=== PATIENT | female | born 1975 | race Caucasian/White ===

== ENCOUNTER 2017-06-24 19:18 | Emergency (ER) | payer BC ==
[~2017-06-24] VITALS: Ht 162.6 cm; Wt 196.3 kg
[2017-06-24] MEDS ORDERED: MoRPHine SULFATE 10 MG/ML CARP/VIAL ONE (19:22)
[2017-06-24 19:23] VITALS: TEMP 36.7; Ht 162.6 cm; Wt 196.3 kg
[2017-06-24] MEDS ORDERED: KETOROLAC TROMETHAMINE 30 MG/ML VIAL IV STA (20:18)
[2017-06-24] MEDS ORDERED: MoRPHine SULFATE 4 MG/ML 1 ML CARP\\VIAL IV STA (20:18)
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
[2017-06-24] MEDS ORDERED: MULT-513 PO (20:29)
[2017-06-24] MEDS ORDERED: DOCU100C31 PO (20:30)
--- NOTE | 2017-06-24 20:48 | DIAGNOSTIC IMAGING REPORT ---
LUMBAR SPINE CT CT DOSE: 2247.98 mGy.cm HISTORY: low back pain TECHNIQUE: Multiaxial CT images of the lumbar spine were performed and reformatted in the sagittal and coronal plane without the use of contrast. A dose lowering technique was utilized adhering to the principles of ALARA. COMPARISON: Abdomen and pelvis CT 08/31/2015. FINDINGS: There is a punctate stone within the left kidney. No hydronephrosis. Paraspinal soft tissues are within normal limits. Mild dextroscoliosis of the lumbar spine. No fractures within the lumbar spine. There is 3 mm of anterolisthesis of L4 and L5. Severe facet osteoarthritis at L4-L5. Mild facet osteoarthritis throughout the remaining lumbar spine. Moderate to space narrowing at T12-L1. Moderate to severe disc space narrowing at L1-L2 with endplate sclerosis and osteophytes consistent with degenerative change. Mild disc space narrowing at L5-S1. Mild central canal narrowing at L1-L2 and L4-L5. IMPRESSION: 1. No fractures within the lumbar spine. 2. Degenerative changes as described above. 3. Left-sided nephrolithiasis. No hydronephrosis. Electronically signed by: Rey Esqueda M.D. 06/24/2017 8:47 PM Dictated Date/Time: 06/24/2017 8:42 PM
[2017-06-24 21:08] VITALS: BP 159/101; PULSE 89; O2SAT 95
== END 2017-06-24 21:09 | disposition home or self-care (01) ==
LOC: EDBD 19:18 → C.EDB 19:19
DX: M54.5 Low back pain (principal); K56.609 Unspecified intestinal obstruction, unspecified as to partial versus complete obstruction; Z90.49 Acquired absence of other specified parts of digestive tract

== ENCOUNTER 2017-09-05 11:03 | Emergency (ER) | payer BC ==
[~2017-09-05] VITALS: Ht 165.1 cm; Wt 173.4 kg
[~2017-09-05 11:03] MED LIST: DOCU100C31 PO; MULT-513 PO
[2017-09-05 11:07] VITALS: TEMP 36.4; Ht 165.1 cm; Wt 173.4 kg
[2017-09-05] MEDS ORDERED: SODIUM CHLORIDE 0.9% 1000ML 1,000 ML IV ONE (12:00)
[2017-09-05 12:05] LABS: BASO % 0.4 %; BASO ABS # 0.04 K/uL (0-0.2); EOS % 1.7 %; EOS ABS # 0.16 K/uL (0-0.5); HEMATOCRIT 37.7 % (37-47); HEMOGLOBIN 11.5 g/dL (12.0-16.0); IG# 0.04 K/uL (0.00-0.02); LYMPH % 13.8 %; MEAN CELL VOLUME 81.1 fL (80-100); MEAN CORPUSCULAR HEMOGLOBIN 24.7 pg (25-34); MEAN CORPUSCULAR HGB CONC 30.5 g/dl (32-36); MEAN PLATELET VOLUME 10.2 fL (7.4-10.4); MONO % 3.8 %; MONO ABS # 0.36 K/uL (0.11-0.59); NEUT % 79.9 %; NEUT ABS # 7.49 K/uL (1.4-6.5); PLATELET COUNT 384 K/uL (130-400); RED CELL DISTRIBUTION WIDTH SD 50.7 fL (36.4-46.3); WHITE BLOOD COUNT 9.39 K/uL (4.8-10.8)
[2017-09-05 12:12] LABS: ALBUMIN 3.5 gm/dl (3.4-5.0); ALT/SGPT 32 U/L (12-78); BLOOD UREA NITROGEN 18 mg/dl (7-18); CALCIUM 8.4 mg/dl (8.5-10.1); CARBON DIOXIDE 26 mmol/L (21-32); CREATININE 0.92 mg/dl (0.60-1.20); GLUCOSE 148 mg/dl (70-99); POTASSIUM 4.3 mmol/L (3.5-5.1); SODIUM 138 mmol/L (136-145)
[2017-09-05 12:17] LABS: ALKALINE PHOSPHATASE 81 U/L (45-117); AST/SGOT 20 U/L (15-37)
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
[2017-09-05 14:58] VITALS: BP 123/77; PULSE 120; O2SAT 93
--- NOTE | 2017-09-05 21:06 | EMERGENCY ROOM VISIT NOTE ---
ED Visit Note First contact with patient: 11:37 Chief Complaint: I felt like I was going to pass out and I started having shortness of breath. History of Present Illness: Ms. Álvarez is a 42-year-old white female who ambulates into the ED accompanied by her . Historically patient reports she has multiple gastrointestinal surgery but no other significant past medical history. Patient reports approximately 1 hour before she arrived in the emergency department she was at work and started feeling lightheaded and dizzy. She then reported that she felt like her heart was racing and became short of breath. She has never experienced these symptoms before. She reports since being in the hospital and lying on the hospital bed all the symptoms have resolved. She does report for the last couple weeks she has been having a mild nonproductive cough that she relates to her previous upper respiratory tract infection. She has not identified any aggravating or alleviating factors related to the symptoms. She has not taken any medications for these symptoms prior to arrival at the hospital. She denies fevers, chills, sweats, skin eruptions, skin color changes, headaches , head trauma, visual changes, hearing changes, difficulty speaking, difficulty swallowing, difficulty ambulating/coordinating body movements, chest pain/ discomfort, recent surgery/inactivity/extended travel, previous clots, claudication, cramping, abdominal pain, nausea/vomiting, back/flank pain, urinary symptoms, hematuria, rectal bleeding, black/tarry stools, vaginal bleeding, vaginal discharge, extremity weakness/numbness/tingling peer Review of Systems: As noted above in history of present illness. All body systems were reviewed and found to be negative as noted above. Past Medical History: Status post cholecystectomy, bowel resection for ischemic bowel, appendectomy. Current Medications: Dulcolax, multivitamins. Allergies to Medications: Patient denies. Social History: Patient is currently employed; she feels safe in her home environment; she denies tobacco and alcohol use. Physical Examination: Vital Signs: Date Time Temp Pulse Resp B/P (MAP) Pulse Ox O2 Delivery O2 Flow Rate FiO2 09/05/17 14:58 120 18 123/77 93 09/05/17 14:53 120 93 Room Air 09/05/17 14:36 75 18 123/77 99 Room Air 09/05/17 12:50 82 20 137/80 100 Room Air 3/26/18 12:48 100 Room Air 09/05/17 12:35 82 20 137/80 100 97 145/94 84 167/99 09/05/17 11:07 36.4 98 20 182/97 94 Room Air GENERAL: 42-year-old female in no acute distress, nontoxic-appearing, afebrile and hemodynamically stable. NEUROLOGICAL: Awake, alert and oriented to person, place and time. Answering questions appropriately and following commands. Normal gait. Good hand eye coordination. No focal motor or sensory deficits. Good short-term and long- term recall. Cranial nerves II through XII grossly intact. SKIN: Warm, dry and pink. No soft tissue eruptions or trauma noted. HEENT: Atraumatic and normocephalic. PERRLA. Sclera white and conjunctiva pink. No drainage from naris. Oral cavity moist and pink. Pharynx is nonerythematous or edematous. Speech normal. No carotid bruits. No lymphadenopathy. Trachea midline. No jugular venous distention. BACK: No tenderness over the bony spine. No CVA tenderness. THORAX: Lungs sounds are clear to auscultation and equal bilaterally with symmetrical chest wall. No wheezing, rales or rhonchi. No crepitus, tenderness , subcutaneous air or deformities noted. HEART: Regular rate and rhythm. No gallops, rubs or murmurs are appreciated. ABDOMEN: Morbidly obese, soft and nontender. Positive bowel sounds in all quadrants. No guarding, rigidity or organomegaly. EXTREMITIES: Moves all extremities well on command and with purpose. All distal neurovascular statuses are intact and equal bilaterally. No calf tenderness or cords. Bilateral dependent edema. ED Course: Patient is assessed as noted above. Patient's medication list was reviewed. Laboratory Testing: Test 09/05/17 11:20 09/05/17 12:28 Range/Units White Blood Count 9.39 4.8-10.8 K/uL Red Blood Count 4.65 4.2-5.4 M/uL Hemoglobin 11.5 12.0-16.0 g/dL Hematocrit 37.7 37-47 % Mean Corpuscular Volume 81.1 80-100 fL Mean Corpuscular Hemoglobin 24.7 25-34 pg Mean Corpuscular Hemoglobin Concent 30.5 32-36 g/dl Platelet Count 384 130-400 K/uL Mean Platelet Volume 10.2 7.4-10.4 fL Neutrophils (%) (Auto) 79.9 % Lymphocytes (%) (Auto) 13.8 % Monocytes (%) (Auto) 3.8 % Eosinophils (%) (Auto) 1.7 % Basophils (%) (Auto) 0.4 % Neutrophils # (Auto) 7.49 1.4-6.5 K/uL Lymphocytes # (Auto) 1.30 1.2-3.4 K/uL Monocytes # (Auto) 0.36 0.11-0.59 K/uL Eosinophils # (Auto) 0.16 0-0.5 K/uL Basophils # (Auto) 0.04 0-0.2 K/uL RDW Standard Deviation 50.7 36.4-46.3 fL RDW Coefficient of Variation 17.0 11.5-14.5 % Immature Granulocyte % (Auto) 0.4 % Immature Granulocyte # (Auto) 0.04 0.00-0.02 K/uL D-Dimer 470 0-500 ug/L FEU Sodium Level 138 136-145 mmol/L Potassium Level 4.3 3.5-5.1 mmol/L Chloride Level 105 98-107 mmol/L Carbon Dioxide Level 26 21-32 mmol/L Anion Gap 7.0 3-11 mmol/L Blood Urea Nitrogen 18 7-18 mg/dl Creatinine 0.92 0.60-1.20 mg/dl Est Creatinine Clear Calc Drug Dose 130.2 ml/min Estimated GFR () 89.0 Estimated GFR (Non- 76.8 BUN/Creatinine Ratio 19.7 10-20 Random Glucose 148 70-99 mg/dl Calcium Level 8.4 8.5-10.1 mg/dl Total Bilirubin 0.4 0.2-1 mg/dl Direct Bilirubin < 0.1 0-0.2 mg/dl Aspartate Amino Transf (AST/SGOT) 20 15-37 U/L Alanine Aminotransferase (ALT/SGPT) 32 12-78 U/L Alkaline Phosphatase 81 45-117 U/L Troponin I < 0.015 0-0.045 ng/ml Total Protein 7.0 6.4-8.2 gm/dl Albumin 3.5 3.4-5.0 gm/dl Urine Color YELLOW Urine Appearance CLEAR CLEAR Urine pH 7.0 4.5-7.5 Urine Specific [place] 1.015 1.000-1.030 Urine Protein NEG NEG Urine Glucose (UA) NEG NEG Urine Ketones NEG NEG Urine Occult Blood NEG NEG Urine Nitrite NEG NEG Urine Bilirubin NEG NEG Urine Urobilinogen NEG NEG Urine Leukocyte Esterase NEG NEG Urine Test NEG NEG EKG: Was read read by myself and shows normal sinus rhythm with a ventricular rate of 83 bpm. Possible left atrial enlargement. No changes indicating ischemia, injury or infarction. No previous to compare. Chest X-Rays: Was read by myself and the radiologist showing no acute infiltrates, effusions or pneumothorax. Normal heart silhouette and bony anatomy. Patient was hydrated with normal saline. An ambulatory saturation test was performed and was negative. Patient's case was reviewed with Dr. Schwartz; we agreed on diagnostic approach, treatment, disposition and plan. Patient was educated about today's findings and instructed on her treatment plan ; she verbalizes understanding and agreement with this plan. Clinical Impression: Dizziness. Decision-Making: Initially my differential diagnosis I considered vasovagal syncope, arrhythmia, electrolyte abnormality, metabolic dysfunction, acute coronary syndrome, pneumonia and other causes. Disposition: Patient discharged home in stable condition accompanied by her ; prior to departure she was reassessed and subjectively reported she was feeling better. Plan: Patient was encouraged to rest for the next 48 hours and stay well-hydrated. Patient was encouraged to contact her family physician for follow-up care and treatment in 2-3 days; I did encourage the patient to have her blood pressure rechecked since it was elevated in today's ED.. Patient was signed off of work for 2 days. Patient was encouraged to return the ED for worsening dizziness/lightheadedness , shortness of breath, fevers, syncope or any new/concerning symptoms.
== END 2017-09-05 15:00 | disposition home or self-care (01) ==
LOC: C.EDB 11:04 → C.EDC 15:00
DX: R42 Dizziness and giddiness (principal); Z90.49 Acquired absence of other specified parts of digestive tract

== ENCOUNTER 2017-10-14 12:21 | Emergency (ER) | payer BC ==
[~2017-10-14] VITALS: Ht 162.6 cm; Wt 197.2 kg
[~2017-10-14 12:21] MED LIST changes: -DOCU100C31 PO
[2017-10-14 12:23] VITALS: TEMP 36.7; Ht 162.6 cm; Wt 197.2 kg
[2017-10-14 13:02] LABS: BASO % 0.6 %; BASO ABS # 0.05 K/uL (0-0.2); EOS % 2.5 %; EOS ABS # 0.22 K/uL (0-0.5); HEMATOCRIT 33.1 % (37-47); HEMOGLOBIN 10.3 g/dL (12.0-16.0); IG# 0.03 K/uL (0.00-0.02); LYMPH % 17.1 %; LYMPH ABS # 1.51 K/uL (1.2-3.4); MEAN CORPUSCULAR HEMOGLOBIN 24.6 pg (25-34); MEAN CORPUSCULAR HGB CONC 31.1 g/dl (32-36); MEAN PLATELET VOLUME 9.2 fL (7.4-10.4); MONO ABS # 0.53 K/uL (0.11-0.59); NEUT % 73.5 %; NEUT ABS # 6.47 K/uL (1.4-6.5); PLATELET COUNT 478 K/uL (130-400); RED CELL DISTRIBUTION WIDTH CV 15.6 % (11.5-14.5); WHITE BLOOD COUNT 8.81 K/uL (4.8-10.8)
[2017-10-14 13:18] LABS: ALBUMIN 3.3 gm/dl (3.4-5.0); CALCIUM 8.7 mg/dl (8.5-10.1); CREATININE 0.83 mg/dl (0.60-1.20)
[2017-10-14 13:21] LABS: TOTAL PROTEIN 7.2 gm/dl (6.4-8.2)
--- NOTE | 2017-10-14 13:30 | DIAGNOSTIC IMAGING REPORT ---
TWO VIEW CHEST CLINICAL HISTORY: Cough. FINDINGS: PA and lateral chest radiographs are compared to study dated 09/05/2017. The PA view is degraded by patient rotation. The examination is also degraded by large body habitus. The cardiomediastinal silhouette is unremarkable. There is chronic elevation of the right hemidiaphragm. The lungs and pleural spaces are clear. There is no pneumothorax. The bony thorax appears intact. IMPRESSION: No active disease in the chest. Electronically signed by: Angelito Flores M.D. 10/14/2017 1:29 PM Dictated Date/Time: 10/14/2017 1:29 PM
[2017-10-14] MEDS ORDERED: ALBUT/IPRATROP 3MG/0.5MG NEB 3 ML VIAL INH STA (13:50)
[2017-10-14] MEDS ORDERED: SODIUM CHLORIDE 0.9% 1000ML 1,000 ML IV STA (14:04)
[2017-10-14 15:47] VITALS: BP 126/72; PULSE 83; O2SAT 97
--- NOTE | 2017-10-14 17:02 | EMERGENCY ROOM VISIT NOTE ---
History Report prepared by Pia: Claritza Walden Under the Supervision of: Dr. Chintan Meyers M.D. First contact with patient: 12:25 Chief Complaint: ILLNESS Stated Complaint: illness History of Present Illness The patient is a 42 year old female who presents to the Emergency Room with complaints of constant generalized illness with increased weakness beginning yesterday. The patient was diagnosed with bronchitis a week ago and was put on Prednisone, Tessalon pearls, and Amoxicillin. She reports she finished the Prednisone two days ago. The patient started to have sharp chest pain occurring yesterday which has since resided. She states her was chest pain is in her central chest and worsened with coughing and breathing. She also reports having sharp abdominal pain beginning last night. She reports her abdominal pain resolved last night; however, it returned this morning when she woke up. This morning, the patient started to feel lightheadedness, fatigued, and confused. She states she has had a nonproductive cough since she was diagnosed with bronchitis a week ago. She denies any vomiting, or fever. She has a history of history of bowel obstructions. The patient's last bowel movement was this morning. She is not a smoker. Source of History: patient Onset: yesterday Position: other (generalized) Quality: other (illness) Timing: constant Modifying Factors (Relieving): other (none) Associated Symptoms: + cough, + chest pain, + abdominal pain, + fatigue, No fevers, No vomiting Review of Systems See HPI for pertinent positives & negatives. A total of 10 systems reviewed and were otherwise negative. Past Medical & Surgical Medical Problems: (1) Intestinal Obstruct Nos Surgical Problems: (1) Hx of cholecystectomy Family History None presented Social History Smoking Status: Never Smoker Smokeless Tobacco Use: No Marital Status: Housing Status: lives with significant other Occupation Status: employed Current/Historical Medications Scheduled Amoxicillin & Pot Clavulanate (Augmentin 875-125 mg), 1 TAB PO BID Docusate Sodium (Docusate Sodium), 1 CAP PO BID Multivitamins/Minerals (Mvi With Minerals), 1 TAB PO DAILY Scheduled PRN Benzonatate (Tessalon Perles), 100 MG PO TID PRN for Cough Allergies Coded Allergies: No Known Allergies (Unverified , 09/05/17) Physical Exam Vital Signs Date Time Temp Pulse Resp B/P (MAP) Pulse Ox O2 Delivery O2 Flow Rate FiO2 10/14/17 15:47 83 20 126/72 97 10/14/17 15:20 83 20 126/72 97 Room Air 10/14/17 14:15 83 18 171/133 100 Room Air 10/14/17 12:48 99 10/14/17 12:23 36.7 94 18 168/99 97 Room Air Physical Exam Constitutional: Vital signs reviewed. Eyes: Pupils are equal round reactive to light. Conjunctiva are noninjected. ENT: Pharynx is clear without erythema or exudate. Mucous membranes are moist. Neck supple without meningeal signs. Respiratory: Clear to auscultation bilaterally. Breath sounds are equal bilaterally. Cardiovascular: Regular rate and rhythm. No rubs or gallops. GI: Soft, nondistended and nontender. Bowel sounds are present. Musculoskeletal: No peripheral edema. No lower extremity tenderness. Easily reproducible sternal tenderness to palpation. Integumentary: No cyanosis. Neurological: The patient is awake and alert. No focal deficits. Psychiatric: Normal affect. Medical Decision & Procedures ER Provider Diagnostic Interpretation: Radiology results as stated below per my review and the radiologist's interpretation: TWO VIEW CHEST FINDINGS: PA and lateral chest radiographs are compared to study dated 09/05/2017. The PA view is degraded by patient rotation. The examination is also degraded by large body habitus. The cardiomediastinal silhouette is unremarkable. There is chronic elevation of the right hemidiaphragm. The lungs and pleural spaces are clear. There is no pneumothorax. The bony thorax appears intact. IMPRESSION: No active disease in the chest. Electronically signed by: Angelito Flores M.D. Laboratory Results 10/14/17 12:46 Red Blood Count 4.19, Mean Corpuscular Volume 79.0, Mean Corpuscular Hemoglobin 24.6, Mean Corpuscular Hemoglobin Concent 31.1, Mean Platelet Volume 9.2, Neutrophils (%) (Auto) 73.5, Lymphocytes (%) (Auto) 17.1, Monocytes (%) (Auto) 6.0, Eosinophils (%) (Auto) 2.5, Basophils (%) (Auto) 0.6, Neutrophils # (Auto) 6.47, Lymphocytes # (Auto) 1.51, Monocytes # (Auto) 0.53, Eosinophils # (Auto) 0.22, Basophils # (Auto) 0.05 10/14/17 12:46 Test 10/14/17 12:35 10/14/17 12:46 10/14/17 12:50 10/14/17 13:12 Urine Color YELLOW Urine Appearance CLEAR (CLEAR) Urine pH 6.5 (4.5-7.5) Urine Specific [place] 1.014 (1.000-1.030) Urine Protein NEG (NEG) Urine Glucose (UA) NEG (NEG) Urine Ketones NEG (NEG) Urine Occult Blood NEG (NEG) Urine Nitrite NEG (NEG) Urine Bilirubin NEG (NEG) Urine Urobilinogen NEG (NEG) Urine Leukocyte Esterase MODERATE (NEG) Urine WBC (Auto) 1-5 /hpf (0-5) Urine RBC (Auto) 0-4 /hpf (0-4) Urine Hyaline Casts (Auto) 1-5 /lpf (0-5) Urine Epithelial Cells (Auto) >30 /lpf (0-5) Urine Bacteria (Auto) NEG (NEG) White Blood Count 8.81 K/uL (4.8-10.8) Red Blood Count 4.19 M/uL (4.2-5.4) Hemoglobin 10.3 g/dL (12.0-16.0) Hematocrit 33.1 % (37-47) Mean Corpuscular Volume 79.0 fL (80-100) Mean Corpuscular Hemoglobin 24.6 pg (25-34) Mean Corpuscular Hemoglobin Concent 31.1 g/dl (32-36) Platelet Count 478 K/uL (130-400) Mean Platelet Volume 9.2 fL (7.4-10.4) Neutrophils (%) (Auto) 73.5 % Lymphocytes (%) (Auto) 17.1 % Monocytes (%) (Auto) 6.0 % Eosinophils (%) (Auto) 2.5 % Basophils (%) (Auto) 0.6 % Neutrophils # (Auto) 6.47 K/uL (1.4-6.5) Lymphocytes # (Auto) 1.51 K/uL (1.2-3.4) Monocytes # (Auto) 0.53 K/uL (0.11-0.59) Eosinophils # (Auto) 0.22 K/uL (0-0.5) Basophils # (Auto) 0.05 K/uL (0-0.2) RDW Standard Deviation 45.0 fL (36.4-46.3) RDW Coefficient of Variation 15.6 % (11.5-14.5) Immature Granulocyte % (Auto) 0.3 % Immature Granulocyte # (Auto) 0.03 K/uL (0.00-0.02) Prothrombin Time 10.0 SECONDS (9.0-12.0) Prothromb Time International Ratio 1.0 (0.9-1.1) Activated Partial Thromboplast Time 23.0 SECONDS (21.0-31.0) Partial Thromboplastin Ratio 0.9 D-Dimer 320 ug/L FEU (0-500) Anion Gap 5.0 mmol/L (3-11) Est Creatinine Clear Calc Drug Dose 155.7 ml/min Estimated GFR () 100.8 Estimated GFR (Non- 87.0 BUN/Creatinine Ratio 17.6 (10-20) Calcium Level 8.7 mg/dl (8.5-10.1) Total Bilirubin 0.4 mg/dl (0.2-1) Direct Bilirubin 0.1 mg/dl (0-0.2) Aspartate Amino Transf (AST/SGOT) 14 U/L (15-37) Alanine Aminotransferase (ALT/SGPT) 27 U/L (12-78) Alkaline Phosphatase 80 U/L (45-117) Total Protein 7.2 gm/dl (6.4-8.2) Albumin 3.3 gm/dl (3.4-5.0) Lipase 251 U/L (73-393) Lyme Disease IgG Antibody NEG (NEG) Lyme Disease IgM Antibody NEG (NEG) Bedside Lactic Acid Venous 1.37 mmol/L (0.90-1.70) Bedside Troponin I < 0.030 ng/ml (0-0.045) Laboratory results as reviewed by me. Medications Administered Medications (Trade) Dose Ordered Sig/Joyce Route Start Time Stop Time Status Last Admin Dose Admin Albuterol/ Ipratropium (Duoneb) 3 ml NOW STAT INH 10/14/17 13:50 10/14/17 13:51 DC 10/14/17 14:11 3 ML Sodium Chloride 1,000 ml @ 999 mls/hr Q1H1M STAT IV 10/14/17 14:04 10/14/17 15:04 DC 10/14/17 14:14 999 MLS/HR ECG Per My Interpretation Indication: chest pain Rate (beats per minute): 97 Rhythm: normal sinus Findings: other (no ST elevation, no PVC) ED Course 1226: The patient was evaluated in room A3. A complete history and physical exam was performed. 1350: Ordered Duoneb 3 ml INH. 1403: I updated the patient on her test results. 1404: Ordered Sodium Chloride 1000 ml @ 999 mls/hr IV. 1537: I updated the patient on her results. She is resting comfortably. 1543: Upon reevaluation, the patient appeared to have improvement of her symptoms. I discussed tonight's findings with her. She verbalized agreement of the treatment plan. The patient was discharged home. Medical Decision This is a 42-year-old female who presents with chest pain, cough and generalized weakness. Differential diagnosis includes pneumonia, bronchitis, pleurisy, pericarditis, costochondritis. I did perform a limited focused review of portions of the patient's old chart on the electronic medical record. The patient was in the ED September 05 for dizziness and shortness of breath. She was discharged after her work up. I did evaluate the patient as noted above. IV access was established. The patient was placed on a continuous desk monitor. I did order and personally review the patient's 12-lead EKG and chest x-ray as described above. Her twelve -lead EKG does not show signs of pericarditis or acute ischemia. Her chest x- ray does not show signs of pneumonia. She was given a DuoNeb. She was also given normal saline IV. I did order and review the patient's blood work as noted in the electronic medical record. Troponin and d-dimer are both negative. Her chest pain is very reproducible on exam. I did discuss the test results with the patient. I did recommend close follow-up with her doctor. She was discharged in good condition. I did later notice that her hemoglobin is slightly decreased from late August. I did call the patient back to let her know this. The patient does state that she has been dealing with anemia since she was very young. She is not currently on iron supplementation but she will resume it. She denies any rectal bleeding or melanotic stools. She was advised to follow-up closely with her doctor and have him recheck her hemoglobin this week. Medication Reconcilliation Current Medication List: was personally reviewed by me Blood Pressure Screening Patient's blood pressure: Elevated blood pressure Blood pressure disposition: Referred to PCP Impression Primary Impression: Generalized weakness Additional Impressions: Acute chest pain Bronchitis Anemia Scribe Attestation The scribe's documentation has been prepared under my direct and personally reviewed by me in its entirety. I confirm that the note above accurately reflects all work, treatment, procedures, and medical decision making performed by me. Departure Information Dispostion Home / Self-Care Referrals No Doctor, Assigned (PCP) Forms HOME CARE DOCUMENTATION FORM, IMPORTANT VISIT INFORMATION, WORK / SCHOOL INSTRUCTIONS Patient Instructions ED Chest Pain Atypical Unkn Cause, ED Weakness [facility] [place], [facility] Additional Instructions You have been examined and treated today on an emergency basis only. This is not a substitute for, or an effort to provide, complete comprehensive medical care. It is impossible to recognize and treat all injuries or illnesses in a single emergency department visit. It is therefore important that you follow up closely with your physician. Call as soon as possible for an appointment. Return for worsening symptoms or if you develop fever, vomiting, or any other concerning symptoms. Problem Qualifiers Additional Impressions: Anemia Anemia type: unspecified type Qualified Codes: D64.9 - Anemia, unspecified
== END 2017-10-14 15:58 | disposition home or self-care (01) ==
LOC: EDBD 12:21 → C.EDA 12:24
DX: R07.89 Other chest pain (principal); R53.1 Weakness; J40 Bronchitis, not specified as acute or chronic; D64.9 Anemia, unspecified; R03.0 Elevated blood-pressure reading, without diagnosis of hypertension

== ENCOUNTER 2017-10-17 10:33 | Emergency (ER) | payer BC ==
[~2017-10-17] VITALS: Ht 162.6 cm; Wt 198.3 kg
[2017-10-17 10:43] VITALS: Ht 162.6 cm; Wt 198.3 kg
[2017-10-17 10:54] VITALS: O2SAT 99
[2017-10-17] MEDS ORDERED: FRRS300 PO (11:08)
[2017-10-17] MEDS ORDERED: SODIUM CHLORIDE 0.9% 1000ML 2,000 ML IV STA (11:32)
[2017-10-17 11:48] LABS: BASO % 0.4 %; BASO ABS # 0.04 K/uL (0-0.2); EOS % 2.8 %; EOS ABS # 0.27 K/uL (0-0.5); HEMATOCRIT 34.1 % (37-47); HEMOGLOBIN 10.5 g/dL (12.0-16.0); IG# 0.04 K/uL (0.00-0.02); LYMPH % 11.9 %; LYMPH ABS # 1.16 K/uL (1.2-3.4); MEAN CELL VOLUME 80.4 fL (80-100); MEAN CORPUSCULAR HEMOGLOBIN 24.8 pg (25-34); MEAN CORPUSCULAR HGB CONC 30.8 g/dl (32-36); MEAN PLATELET VOLUME 9.7 fL (7.4-10.4); MONO % 4.3 %; MONO ABS # 0.42 K/uL (0.11-0.59); NEUT % 80.2 %; NEUT ABS # 7.79 K/uL (1.4-6.5); PLATELET COUNT 406 K/uL (130-400); PTT PATIENT 22.8 SECONDS (21.0-31.0); RED CELL DISTRIBUTION WIDTH CV 15.6 % (11.5-14.5); RED CELL DISTRIBUTION WIDTH SD 45.5 fL (36.4-46.3); WHITE BLOOD COUNT 9.72 K/uL (4.8-10.8)
[2017-10-17 11:56] LABS: ALBUMIN 3.2 gm/dl (3.4-5.0); ALT/SGPT 29 U/L (12-78); AST/SGOT 17 U/L (15-37); BLOOD UREA NITROGEN 14 mg/dl (7-18); CARBON DIOXIDE 26 mmol/L (21-32); CREATININE 0.84 mg/dl (0.60-1.20); GLUCOSE 162 mg/dl (70-99); POTASSIUM 3.9 mmol/L (3.5-5.1); SODIUM 139 mmol/L (136-145)
--- NOTE | 2017-10-17 11:59 | EMERGENCY ROOM VISIT NOTE ---
History First contact with patient: 11:09 Chief Complaint: SYNCOPE (NEAR SYNCOPE) Stated Complaint: SYNCOPE History of Present Illness The patient is a 42 year old female who presents to the Emergency Room with complaints of syncopal episode 1 today. The patient states while at work today , she began experiencing weakness, dizziness, and increased fatigue, followed by a short episode of syncope where she lowered herself to the ground and awoke to her coworkers "poking me". The patient has been experiencing the same symptoms for at least 1-2 weeks. She was diagnosed with bronchitis approximately 1-1/2 weeks ago. She was taking prednisone and is continuing to finish up amoxicillin. She denies any similar episodes, but has had similar symptoms in the past associated with her anemia. She was contacted by Dr. Meyers after her most recent visit and advised to take iron pills due to the anemia noted on her labs. The patient denies any rectal bleeding. Her most recent period was approximately 2 weeks ago, and was normal. The patient states her symptoms are worse with standing and improved with lying still. She ate a muffin for breakfast, and drink a couple sips of water with her medications this morning, but has not had any other fluids or food today. She states she has been coughing, and has chest discomfort associated with the coughing. She states on Tuesday when she was here, she described a foggy sensation in her brain , and states "it was like cobwebs in my brain". She denies any confusion or the brain fog today. She did note some mild blood in her stool this morning, and describes it as bright red blood associated with straining to move her bowels. She denies any other bleeding issues. She denies any dyspnea or palpitations. She denies any headache, nausea, or vomiting. Review of Systems A complete 10 point review of systems was reviewed with the patient with pertinent positives and negatives as per history of present illness. All else were negative. Past Medical/Surgical History Medical Problems: (1) Intestinal Obstruct Nos Surgical Problems: (1) Hx of cholecystectomy Family History None presented Social History Smoking Status: Never Smoker Marital Status: Housing Status: lives with significant other Occupation Status: employed Current/Historical Medications Scheduled Amoxicillin & Pot Clavulanate (Augmentin 875-125 mg), 1 TAB PO BID Docusate Sodium (Docusate Sodium), 1 CAP PO BID Ferrous Sulfate (Ferrous Sulfate), 325 MG PO DAILY Scheduled PRN Benzonatate (Tessalon Perles), 100 MG PO TID PRN for Cough Physical Exam Vital Signs Date Time Temp Pulse Resp B/P (MAP) Pulse Ox O2 Delivery O2 Flow Rate FiO2 10/17/17 14:00 36.5 78 18 148/68 98 10/17/17 13:36 78 18 148/68 98 Room Air 10/17/17 13:15 81 10/17/17 12:24 94 20 153/85 100 Room Air 101 161/86 98 179/94 10/17/17 11:04 93 10/17/17 10:54 99 Room Air 10/17/17 10:43 36.5 89 20 158/93 99 Room Air Physical Exam VITALS: Vitals are noted on the nurse's note and reviewed by myself. Vital signs stable. GENERAL: This is a 42-year-old obese white female, in no acute distress, nondiaphoretic, well-developed well-nourished. SKIN: The skin was without rashes, erythema, edema, or bruising. There is no tenting of the skin. Capillary reflex less than 2 seconds. HEAD: Normocephalic atraumatic. EARS: External auditory canals clear, tympanic membranes pearly ca without erythema or effusion bilaterally. EYES: Pupils equal round and reactive to light and accommodation. Conjunctivae without injection, sclerae without icterus. Extraocular movements intact. NOSE: Patent, turbinates without inflammation or discharge. No sinus tenderness. MOUTH: Mucous membranes moist. Tonsils are not enlarged. Pharynx without erythema or exudate. Uvula midline. Airway patent. Tongue does not deviate. NECK: Supple without nuchal rigidity. No lymphadenopathy. No thyromegaly. Cervical spine is nontender. No JVD. HEART: Regular rate and rhythm without murmurs gallops or rubs. LUNGS: Clear to auscultation bilaterally without wheezes, rales or rhonchi. No dullness to percussion. No retractions or accessory muscle use. ABDOMEN: Positive bowel sounds x 4. Normal tympanic percussion. Soft, nontender, without masses or organomegaly. Lynn sign negative. No guarding or rebound tenderness. MUSCULOSKELETAL: No muscle atrophy, erythema, or edema noted. Full range of motion without joint tenderness in all extremities. No tenderness to palpation. Normal gait. Strength 5/5 throughout. NEURO: Patient was alert and oriented to person place and time. Normal sensation to light and sharp touch. Deep tendon reflexes 2+ throughout. No focal neurological deficits. Medical Decision & Procedures Laboratory Results 10/17/17 10:59 Red Blood Count 4.24, Mean Corpuscular Volume 80.4, Mean Corpuscular Hemoglobin 24.8, Mean Corpuscular Hemoglobin Concent 30.8, Mean Platelet Volume 9.7, Neutrophils (%) (Auto) 80.2, Lymphocytes (%) (Auto) 11.9, Monocytes (%) (Auto) 4.3, Eosinophils (%) (Auto) 2.8, Basophils (%) (Auto) 0.4, Neutrophils # (Auto) 7.79, Lymphocytes # (Auto) 1.16, Monocytes # (Auto) 0.42, Eosinophils # (Auto) 0.27, Basophils # (Auto) 0.04 10/17/17 10:59 Test 10/17/17 10:59 10/17/17 11:39 White Blood Count 9.72 K/uL (4.8-10.8) Red Blood Count 4.24 M/uL (4.2-5.4) Hemoglobin 10.5 g/dL (12.0-16.0) Hematocrit 34.1 % (37-47) Mean Corpuscular Volume 80.4 fL (80-100) Mean Corpuscular Hemoglobin 24.8 pg (25-34) Mean Corpuscular Hemoglobin Concent 30.8 g/dl (32-36) Platelet Count 406 K/uL (130-400) Mean Platelet Volume 9.7 fL (7.4-10.4) Neutrophils (%) (Auto) 80.2 % Lymphocytes (%) (Auto) 11.9 % Monocytes (%) (Auto) 4.3 % Eosinophils (%) (Auto) 2.8 % Basophils (%) (Auto) 0.4 % Neutrophils # (Auto) 7.79 K/uL (1.4-6.5) Lymphocytes # (Auto) 1.16 K/uL (1.2-3.4) Monocytes # (Auto) 0.42 K/uL (0.11-0.59) Eosinophils # (Auto) 0.27 K/uL (0-0.5) Basophils # (Auto) 0.04 K/uL (0-0.2) RDW Standard Deviation 45.5 fL (36.4-46.3) RDW Coefficient of Variation 15.6 % (11.5-14.5) Immature Granulocyte % (Auto) 0.4 % Immature Granulocyte # (Auto) 0.04 K/uL (0.00-0.02) Prothrombin Time 10.1 SECONDS (9.0-12.0) Prothromb Time International Ratio 1.0 (0.9-1.1) Activated Partial Thromboplast Time 22.8 SECONDS (21.0-31.0) Partial Thromboplastin Ratio 0.9 Anion Gap 7.0 mmol/L (3-11) Est Creatinine Clear Calc Drug Dose 154.5 ml/min Estimated GFR () 99.4 Estimated GFR (Non- 85.7 BUN/Creatinine Ratio 16.6 (10-20) Calcium Level 8.0 mg/dl (8.5-10.1) Iron Level 212 mcg/dl (35-150) Total Iron Binding Capacity 450 mcg/dl (250-450) Ferritin 12.2 ng/ml (8.0-388.0) Total Bilirubin 0.3 mg/dl (0.2-1) Aspartate Amino Transf (AST/SGOT) 17 U/L (15-37) Alanine Aminotransferase (ALT/SGPT) 29 U/L (12-78) Alkaline Phosphatase 69 U/L (45-117) Troponin I < 0.015 ng/ml (0-0.045) Total Protein 6.8 gm/dl (6.4-8.2) Albumin 3.2 gm/dl (3.4-5.0) Globulin 3.6 gm/dl (2.5-4.0) Albumin/Globulin Ratio 0.9 (0.9-2) Thyroid Stimulating Hormone (TSH) 2.330 uIu/ml (0.300-4.500) Monoscreen NEG (NEG) Urine Color YELLOW Urine Appearance CLEAR (CLEAR) Urine pH 5.0 (4.5-7.5) Urine Specific [place] 1.033 (1.000-1.030) Urine Protein NEG (NEG) Urine Glucose (UA) NEG (NEG) Urine Ketones NEG (NEG) Urine Occult Blood NEG (NEG) Urine Nitrite NEG (NEG) Urine Bilirubin NEG (NEG) Urine Urobilinogen NEG (NEG) Urine Leukocyte Esterase TRACE (NEG) Urine WBC (Auto) 1-5 /hpf (0-5) Urine RBC (Auto) 0-4 /hpf (0-4) Urine Hyaline Casts (Auto) 5-10 /lpf (0-5) Urine Epithelial Cells (Auto) >30 /lpf (0-5) Urine Bacteria (Auto) NEG (NEG) Urine Test NEG (NEG) Medications Administered Medications (Trade) Dose Ordered Sig/Joyce Route Start Time Stop Time Status Last Admin Dose Admin Sodium Chloride 2,000 ml @ 999 mls/hr Q2H1M STAT IV 10/17/17 11:32 10/17/17 13:32 DC 10/17/17 11:47 999 MLS/HR ECG Per My Interpretation Indication: syncope Rate (beats per minute): 99 Rhythm: normal sinus Findings: no acute ischemic change, no ectopy Comparison ECG Date: 10/14/17 Change: no significant change ED Course The patient was seen and evaluated as above. Previous medical records reviewed. IV access obtained, labs drawn. EKG performed. This was interpreted by myself as above. Rectal examination performed. This was negative for occult blood. The patient was given 2 L normal saline solution bolus IV. Labs performed and reviewed by myself. I discussed the findings of all testing with the patient and her at bedside. The patient was reassessed and is feeling slightly improved, however continuing to be mildly dizzy. The 2 L bolus normal saline solution was completed. The patient was reassessed and is continuing to feel better. She does feel well enough for discharge. I discussed the case with my attending. Discharge instructions reviewed, patient was discharged home in good condition. Medical Decision This is a 42-year-old female patient presents to the emergency department today complaining of weakness, dizziness, and fatigue for the past several weeks. She states her symptoms have been constant, but worsening on occasion. She does not drink significant amounts of fluids, nor does she eat regularly. She was here for the same symptoms on Tuesday and had a full syncope workup performed at that time. She does not have a PCP and has not followed up outpatient. The patient has been ill with bronchitis for several weeks, and is currently on antibiotics and recently finished steroids. She was anemic last Tuesday, so rectal examination performed today. There was no blood in the stool. The patient's hemoglobin is 10.5 hematocrit 34.1. These are slightly improved from previous. There is no thrombocytopenia. The patient's coagulation studies are negative. There is no signs of urinary tract infection. Urine test was negative. The patient's CMP did not show any significant renal, hepatic, or electrolyte abnormalities. Her calcium was slightly low and blood glucose was elevated at 162. The patient was encouraged to follow-up regarding these findings. Troponin was negative. Iron studies were normal, however borderline. Thyroid testing was negative and mono screen was negative. I did attempt to order vitamin B12 and folate due to the patient' s anemia and chronic symptoms, however these hemolyzed in the lab and were unable to be recollected. Orthostatic vital signs were insignificant for changes. The patient's symptoms did improve with IV fluids. I suspect some mild dehydration in addition to the anemia as the cause of the patient's symptoms. I did discuss with her proper nutrition and hydration at home. I encouraged ongoing iron supplementation. Case management did discuss with the patient options for PCPs in the area. All questions were answered to the patient and her satisfaction. Etiologies such as vasovagal event, infection, hypoglycemia, electrolyte abnormalities, cardiac sources, intracerebral event, toxicologic, neurologic, as well as others were entertained. The chart was completed utilizing [employer] Speech voice recognition software. Grammatical errors, random word insertions, pronoun errors, and incomplete sentences are an occasional consequence of this system due to software limitations, ambient noise, and hardware issues. Any formal questions or concerns about the content, text, or information contained within the body of this dictation should be directly addressed to the provider for clarification. Medication Reconcilliation Current Medication List: was personally reviewed by me Blood Pressure Screening Patient's blood pressure: Elevated blood pressure Blood pressure disposition: Elevated BP felt to be situational Impression Primary Impression: Anemia Additional Impressions: Syncope Fatigue Departure Information Dispostion Home / Self-Care Condition GOOD Referrals No Doctor, Assigned (PCP) Patient Instructions ED Anemia Iron Deficiency, ED Syncope Vasovagal, My [facility] Additional Instructions You were seen in the emergency department today for a syncopal episode. Labs and EKG were insignificant for specific cause, however labs did indicate a probable iron deficiency anemia. Please continue to take your iron supplements as described. Taking iron supplements with vitamin C can help to increase the absorption. Drink plenty fluids and stay well-hydrated. You should be eating regularly. As discussed, your blood glucose level was slightly elevated. Please follow-up with this as well as the anemia this week with a PCP appointment. As discussed , you may need some further testing for diabetes. As discussed, I suspect the bronchitis/coughing is likely viral and will linger for another 1-2 weeks. Please continue using medications as prescribed. Return to the emergency department immediately for any syncope, increased dizziness, head injury, chest pain, or other concerning symptoms. Problem Qualifiers Primary Impression: Anemia Anemia type: iron deficiency Iron deficiency anemia type: unspecified iron deficiency Qualified Codes: D50.9 - Iron deficiency anemia, unspecified Additional Impressions: Syncope Syncope type: unspecified Qualified Codes: R55 - Syncope and collapse Fatigue Fatigue type: unspecified Qualified Codes: R53.83 - Other fatigue
[2017-10-17 12:05] LABS: ALKALINE PHOSPHATASE 69 U/L (45-117); TOTAL PROTEIN 6.8 gm/dl (6.4-8.2)
[2017-10-17] MEDS ORDERED: AMOX875T PO (13:35)
[2017-10-17] MEDS ORDERED: BENZ100C84 PO (13:35)
[2017-10-17 14:00] VITALS: BP 148/68; PULSE 78; TEMP 36.5; O2SAT 98
[2017-10-17] MEDS ORDERED: DOCU100C31 PO (20:30)
== END 2017-10-17 14:01 | disposition home or self-care (01) ==
LOC: EDBD 10:33 → C.EDA 10:34
DX: D50.9 Iron deficiency anemia, unspecified (principal); R55 Syncope and collapse; R53.83 Other fatigue; Z79.899 Other long term (current) drug therapy

== ENCOUNTER → 2017-10-31 | Outpatient (CLI) | payer BC ==
[~2017-10-31] MED LIST changes: +AMOX875T PO; +BENZ100C84 PO; +DOCU100C31 PO; +FRRS300 PO; -MULT-513 PO
[2017-10-31 13:25] LABS: BASO % 0.4 %; BASO ABS # 0.03 K/uL (0-0.2); EOS ABS # 0.23 K/uL (0-0.5); HEMOGLOBIN 11.1 g/dL (12.0-16.0); IG# 0.02 K/uL (0.00-0.02); LYMPH % 18.6 %; LYMPH ABS # 1.41 K/uL (1.2-3.4); MEAN CELL VOLUME 83.1 fL (80-100); MEAN CORPUSCULAR HEMOGLOBIN 24.9 pg (25-34); MONO % 6.1 %; MONO ABS # 0.46 K/uL (0.11-0.59); NEUT % 71.6 %; NEUT ABS # 5.42 K/uL (1.4-6.5); PLATELET COUNT 425 K/uL (130-400); RED CELL DISTRIBUTION WIDTH CV 17.8 % (11.5-14.5); RED CELL DISTRIBUTION WIDTH SD 53.5 fL (36.4-46.3); WHITE BLOOD COUNT 7.57 K/uL (4.8-10.8)
[2017-10-31 15:24] LABS: TRANSFERRIN 347 mg/dl (200-360)
== END | disposition home or self-care (01) ==
LOC: C.LABBC 10:35
PROVIDERS: ATTEND Family Medicine Adult Medicine
DX: D64.9 Anemia, unspecified (principal)

== ENCOUNTER 2017-11-04 07:53 | Emergency (ER) | payer BC ==
[~2017-11-04] VITALS: Ht 162.6 cm; Wt 198.0 kg
[2017-11-04 07:58] VITALS: PULSE 90; TEMP 36.6; O2SAT 94; Ht 162.6 cm; Wt 198.0 kg
[2017-11-04] MEDS ORDERED: ONDANSETRON INJ 2 MG/ML 2 ML VIAL IV STA (08:04)
--- NOTE | 2017-11-04 08:11 | EMERGENCY ROOM VISIT NOTE ---
History Report prepared by Pia: Donnie Lewis Under the Supervision of: Dr. Alpesh Lemos M.D. First contact with patient: 08:00 Chief Complaint: ABDOMINAL PAIN Stated Complaint: ABDOMINAL PAIN History of Present Illness The patient is a 42 year old female who presents to the Emergency Room with complaints of constant, moderate, abdominal pain beginning 7 hours ago. The patient states she was laying in bed when her symptoms began. She reports she is also nauseous. She states she ate chicken around 2130 last evening for dinner. The patient denies black stool and blood in her stool. She states she has a history of a cholecystectomy and a bowel removal for an intestinal blockage. The patient denies vomiting, chance of , fevers, vaginal bleeding, vaginal discharge, and consuming alcohol. Source of History: patient Onset: 7 hours ago Position: abdomen Symptom Intensity: moderate Timing: constant Associated Symptoms: + nausea, No fevers, No vomiting Note: Associated symptoms: dizziness, dark stools Denies: blood in stool, black stool, vaginal bleeding, vaginal discharge Review of Systems See HPI for pertinent positives and negatives. A total of ten systems were reviewed and were otherwise negative. Past Medical & Surgical Medical Problems: (1) Intestinal Obstruct Nos Surgical Problems: (1) Hx of cholecystectomy Family History None presented Social History Smoking Status: Never Smoker Marital Status: Housing Status: lives with significant other Occupation Status: employed Current/Historical Medications Scheduled Cyanocobalamin (Vitamin B-12), 1,000 MCG PO DAILY Famotidine (Pepcid), 20 MG PO DAILY Ferrous Sulfate (Iron), 65 MG PO AMPM Scheduled PRN Ondansetron Hcl (Zofran), 4 MG PO Q8H PRN for Nausea Allergies Coded Allergies: No Known Allergies (Unverified , 11/04/17) Physical Exam Vital Signs Date Time Temp Pulse Resp B/P (MAP) Pulse Ox O2 Delivery O2 Flow Rate FiO2 11/04/17 10:41 153/93 11/04/17 09:26 144/63 11/04/17 07:58 36.6 90 18 134/98 94 Room Air Physical Exam Physical Exam GENERAL: She is oriented to person, place, and time. She appears well- developed and well-nourished. She does not appear distressed. She is morbidly obese.____ HENT: Exam performed. Head: Normocephalic and atraumatic. Right Ear: External ear normal. No mastoid tenderness. Left Ear: External ear normal. No mastoid tenderness. Mouth/Throat: The oropharynx is clear and moist. No trismus in the jaw. No dental abscesses or uvula swelling. No oropharyngeal exudate or tonsillar abscesses. ____ EYES: Conjunctivae and EOM are normal. Pupils are equal, round, and reactive to light. Right eye exhibits no discharge. Left eye exhibits no discharge. No scleral icterus. ____ NECK: Normal range of motion. Neck supple. No JVD present. No spinous process tenderness present. No carotid bruit present. No rigidity. No tracheal deviation and normal range of motion present. No Brudzinski's sign and no Kernig 's sign noted. ____ CV: Normal rate, regular rhythm, normal heart sounds and intact distal pulses. There is no peripheral edema. Palpable radial pulses bue. ____ PULM/CHEST: Effort normal and breath sounds normal. No respiratory distress. No stridor. She has no wheezes. She has no rales. Chest Wall: She exhibits no tenderness. ____ ABD: Morbidly obese. The abdomen is soft. Bowel sounds are normal. She has no distension. No mass is present. There is tenderness upon palpation to the epigastrium. There is no rebound, no guarding, no Lynn's sign and no tenderness at McBurney's point. Rovsig negative MUSC/SKEL: Normal range of motion. There is no peripheral edema, tenderness or deformity. LYMPH: No cervical adenopathy. ____ NEURO: She is alert and oriented to person, place, and time. She has normal strength. No cranial nerve deficit or sensory deficit. Coordination and gait normal. GCS eye subscore is 4. GCS verbal subscore is 5. GCS motor subscore is 6. Cerebellar tests wnl. ____ SKIN: Skin is warm and dry. She is not diaphoretic. ____ PSYCH: She has a normal mood and affect. Her behavior is normal. Judgment and thought content normal. ____ Medical Decision & Procedures ER Provider Diagnostic Interpretation: Radiology results as stated below per my review and radiologist interpretation: CT SCAN OF THE ABDOMEN AND PELVIS WITH IV CONTRAST CLINICAL HISTORY: Epigastric abdominal pain. COMPARISON STUDY: Abdominal CT dated 09/02/2015. TECHNIQUE: Following the IV administration of 119 cc of Optiray 320, CT scan of the abdomen and pelvis is performed from the lung bases to the proximal femora. Images are reviewed in the axial, sagittal, and coronal planes. IV contrast was administered without complication. A dose lowering technique was utilized adhering to the principles of ALARA. The examination is significantly degraded by large body habitus, and by streak artifact from the body wall abutting the CT gantry. CT DOSE: 2707.06 mGy.cm FINDINGS: Lung bases: The heart is normal in size and without pericardial effusion. There is linear atelectasis in the right lower lobe. The lung bases are otherwise clear. Liver: The contrast-enhanced liver is markedly enlarged, measuring 27.3 cm in length. The liver demonstrates diffusely diminished attenuation consistent with severe hepatic steatosis. There is no intrahepatic biliary ductal dilatation. The hepatic veins and portal veins are patent. Gallbladder: Surgically absent. Spleen: Normal in size and attenuation. Pancreas: Unremarkable. Adrenal glands: Unremarkable. Kidneys: The contrast enhanced kidneys are normal in size and without hydronephrosis. The kidneys enhance symmetrically. A nonobstructing calculus is identified in the upper pole of the left kidney. Abdominal vasculature: The abdominal aorta is normal in course and caliber noting scattered foci of atherosclerotic calcification. Bowel: There is a large hernia in the upper abdomen contains a nonobstructed segment of the transverse colon. A large hernia in the ventral pelvis contains nonobstructed loops of small bowel and colon. No bowel obstruction is seen. A small bowel anastomosis is identified within the large ventral pelvic hernia. There is mild focal dilatation at the anastomotic site, likely due to denervation. There are scattered colonic diverticula without CT evidence of acute diverticulitis. The appendix is not identified and reported surgically absent. Peritoneum: There is no intraperitoneal free air or abdominal ascites. Lymphadenopathy: None. Pelvic viscera: The the bladder is decompressed and grossly unremarkable. The uterus and adnexa are normal as visualized. A dominant follicle in the left ovary measures up to 3.3 cm. Skeletal structures: The skeletal structures are osteopenic. Moderate lumbosacral spondylosis is observed. No lytic or blastic lesions are seen. IMPRESSION: 1. There are no acute infectious or inflammatory findings in the abdomen or pelvis. 2. There are 2 large ventral hernias which contain nonobstructed loops of small bowel and colon. No bowel obstruction is identified. 3. Hepatomegaly and severe hepatic steatosis. 4. Nonobstructing left renal calculus. 5. Additional findings as above. Electronically signed by: Angelito Flores M.D. 11/04/2017 9:48 AM Dictated Date/Time: 11/04/2017 9:33 AM Laboratory Results 11/04/17 08:20 Red Blood Count 4.12, Mean Corpuscular Volume 84.2, Mean Corpuscular Hemoglobin 25.5, Mean Corpuscular Hemoglobin Concent 30.3, Mean Platelet Volume 9.6, Neutrophils (%) (Auto) 77.6, Lymphocytes (%) (Auto) 12.3, Monocytes (%) (Auto) 5.1, Eosinophils (%) (Auto) 4.5, Basophils (%) (Auto) 0.4, Neutrophils # (Auto) 6.37, Lymphocytes # (Auto) 1.01, Monocytes # (Auto) 0.42, Eosinophils # (Auto) 0.37, Basophils # (Auto) 0.03 11/04/17 08:20 Test 11/04/17 08:20 White Blood Count 8.21 K/uL (4.8-10.8) Red Blood Count 4.12 M/uL (4.2-5.4) Hemoglobin 10.5 g/dL (12.0-16.0) Hematocrit 34.7 % (37-47) Mean Corpuscular Volume 84.2 fL (80-100) Mean Corpuscular Hemoglobin 25.5 pg (25-34) Mean Corpuscular Hemoglobin Concent 30.3 g/dl (32-36) Platelet Count 354 K/uL (130-400) Mean Platelet Volume 9.6 fL (7.4-10.4) Neutrophils (%) (Auto) 77.6 % Lymphocytes (%) (Auto) 12.3 % Monocytes (%) (Auto) 5.1 % Eosinophils (%) (Auto) 4.5 % Basophils (%) (Auto) 0.4 % Neutrophils # (Auto) 6.37 K/uL (1.4-6.5) Lymphocytes # (Auto) 1.01 K/uL (1.2-3.4) Monocytes # (Auto) 0.42 K/uL (0.11-0.59) Eosinophils # (Auto) 0.37 K/uL (0-0.5) Basophils # (Auto) 0.03 K/uL (0-0.2) RDW Standard Deviation 55.5 fL (36.4-46.3) RDW Coefficient of Variation 18.1 % (11.5-14.5) Immature Granulocyte % (Auto) 0.1 % Immature Granulocyte # (Auto) 0.01 K/uL (0.00-0.02) Anion Gap 6.0 mmol/L (3-11) Est Creatinine Clear Calc Drug Dose 150.7 ml/min Estimated GFR () 96.6 Estimated GFR (Non- 83.3 BUN/Creatinine Ratio 20.3 (10-20) Lactic Acid Level 1.6 mmol/L (0.4-2.0) Calcium Level 8.4 mg/dl (8.5-10.1) Total Bilirubin 0.5 mg/dl (0.2-1) Direct Bilirubin < 0.1 mg/dl (0-0.2) Aspartate Amino Transf (AST/SGOT) 22 U/L (15-37) Alanine Aminotransferase (ALT/SGPT) 30 U/L (12-78) Alkaline Phosphatase 71 U/L (45-117) Total Protein 6.7 gm/dl (6.4-8.2) Albumin 3.3 gm/dl (3.4-5.0) Lipase 114 U/L (73-393) Laboratory results reviewed by me Medications Administered Medications (Trade) Dose Ordered Sig/Joyce Route Start Time Stop Time Status Last Admin Dose Admin Hydromorphone HCl (Dilaudid Inj) 1 mg ONE PRN IV 11/04/17 08:15 11/04/17 12:22 DC 11/04/17 08:25 1 MG Ondansetron HCl (Zofran Inj) 4 mg NOW STAT IV 11/04/17 08:04 11/04/17 08:06 DC 11/04/17 08:25 4 MG ED Course 0801: The patient was evaluated in room B07. A complete history and physical exam was performed. 0804: Ordered Ondansetron HCl 4mg IV 0815: Ordered Hydromorphone HCl 1mg IV 0922: Ordered Sodium Chloride 1000 ml @ 999 mls/hr IV 1021: I reevaluated the patient, serial abdominal exams show no pain on palpation and discussed her exam findings and test results. Her vitals are stable. Her CT and labs are wnl. She will be discharged with PCP follow-up. DISCHARGE - Plan of care discussed with patient and questions answered. The patient was given both verbal and printed discharge instructions. The patient verbalized understanding and ability to comply. The patient is to seek outpatient follow up as noted in the discharge instructions. The patient verbalized understanding and ability to comply. The patient is discharged in stable condition. The patient was instructed to return for worsening symptoms. Medical Decision serial abdominal exams show no pain on palpation and discussed her exam findings and test results. Her vitals are stable. Her CT and labs are wnl. She will be discharged with PCP follow-up. DISCHARGE - Plan of care discussed with patient and questions answered. The patient was given both verbal and printed discharge instructions. The patient verbalized understanding and ability to comply. The patient is to seek outpatient follow up as noted in the discharge instructions. The patient verbalized understanding and ability to comply. The patient is discharged in stable condition. The patient was instructed to return for worsening symptoms. Medication Reconcilliation Current Medication List: was personally reviewed by me Blood Pressure Screening Patient's blood pressure: Elevated blood pressure Blood pressure disposition: Elevated BP felt to be situational Impression Primary Impression: Abdominal pain Scribe Attestation The scribe's documentation has been prepared under my direction and personally reviewed by me in its entirety. I confirm that the note above accurately reflects all work, treatment, procedures, and medical decision making performed by me. The chart was completed utilizing [employer] Speech voice recognition software. Grammatical errors, random word insertions, pronoun errors, and incomplete sentences are an occasional consequence of this system due to software limitations, ambient noise, and hardware issues. Any formal questions or concerns about the content, text, or information contained within the body of this dictation should be directly addressed to the physician for clarification. Departure Information Dispostion Home / Self-Care Prescriptions Ondansetron Hcl (ZOFRAN) 4 Mg Tab 4 MG PO Q8H Y for Nausea, #30 TAB Prov: Alpesh Lemos M.D. 11/04/17 Referrals Carmella Ortiz M.D. (PCP) Forms Call Back Authorization, HOME CARE DOCUMENTATION FORM, IMPORTANT VISIT INFORMATION Patient Instructions Abdominal Pain - [facility], [facility] Health Problem Qualifiers Primary Impression: Abdominal pain Abdominal location: unspecified location Qualified Codes: R10.9 - Unspecified abdominal pain
[2017-11-04] MEDS ORDERED: HYDROmorphone INJ 1 MG/ML SYR IV PRN (08:15)
[2017-11-04] MEDS ORDERED: OPTIRAY 320 IV PRN (08:15)
[2017-11-04 08:32] LABS: BASO % 0.4 %; BASO ABS # 0.03 K/uL (0-0.2); EOS % 4.5 %; EOS ABS # 0.37 K/uL (0-0.5); HEMATOCRIT 34.7 % (37-47); HEMOGLOBIN 10.5 g/dL (12.0-16.0); IG# 0.01 K/uL (0.00-0.02); LYMPH % 12.3 %; LYMPH ABS # 1.01 K/uL (1.2-3.4); MEAN CELL VOLUME 84.2 fL (80-100); MEAN CORPUSCULAR HEMOGLOBIN 25.5 pg (25-34); MEAN CORPUSCULAR HGB CONC 30.3 g/dl (32-36); MEAN PLATELET VOLUME 9.6 fL (7.4-10.4); MONO % 5.1 %; MONO ABS # 0.42 K/uL (0.11-0.59); NEUT % 77.6 %; NEUT ABS # 6.37 K/uL (1.4-6.5); PLATELET COUNT 354 K/uL (130-400); RED CELL DISTRIBUTION WIDTH CV 18.1 % (11.5-14.5); RED CELL DISTRIBUTION WIDTH SD 55.5 fL (36.4-46.3); WHITE BLOOD COUNT 8.21 K/uL (4.8-10.8)
[2017-11-04 08:51] LABS: ALBUMIN 3.3 gm/dl (3.4-5.0); ALKALINE PHOSPHATASE 71 U/L (45-117); ALT/SGPT 30 U/L (12-78); AST/SGOT 22 U/L (15-37); BLOOD UREA NITROGEN 18 mg/dl (7-18); CALCIUM 8.4 mg/dl (8.5-10.1); CARBON DIOXIDE 26 mmol/L (21-32); CREATININE 0.86 mg/dl (0.60-1.20); GLUCOSE 153 mg/dl (70-99); LIPASE 114 U/L (73-393); POTASSIUM 4.6 mmol/L (3.5-5.1); SODIUM 138 mmol/L (136-145); TOTAL PROTEIN 6.7 gm/dl (6.4-8.2)
[2017-11-04] MEDS ORDERED: FERR28TA2 PO (09:02)
[2017-11-04] MEDS ORDERED: CYAN10005 PO (09:02)
[2017-11-04] MEDS ORDERED: FAMO20TA11 PO (09:02)
[2017-11-04] MEDS ORDERED: SODIUM CHLORIDE 0.9% 1000ML 1,000 ML IV STA (09:22)
--- NOTE | 2017-11-04 09:49 | DIAGNOSTIC IMAGING REPORT ---
CT SCAN OF THE ABDOMEN AND PELVIS WITH IV CONTRAST CLINICAL HISTORY: Epigastric abdominal pain. COMPARISON STUDY: Abdominal CT dated 09/02/2015. TECHNIQUE: Following the IV administration of 119 cc of Optiray 320, CT scan of the abdomen and pelvis is performed from the lung bases to the proximal femora. Images are reviewed in the axial, sagittal, and coronal planes. IV contrast was administered without complication. A dose lowering technique was utilized adhering to the principles of ALARA. The examination is significantly degraded by large body habitus, and by streak artifact from the body wall abutting the CT gantry. CT DOSE: 2707.06 mGy.cm FINDINGS: Lung bases: The heart is normal in size and without pericardial effusion. There is linear atelectasis in the right lower lobe. The lung bases are otherwise clear. Liver: The contrast-enhanced liver is markedly enlarged, measuring 27.3 cm in length. The liver demonstrates diffusely diminished attenuation consistent with severe hepatic steatosis. There is no intrahepatic biliary ductal dilatation. The hepatic veins and portal veins are patent. Gallbladder: Surgically absent. Spleen: Normal in size and attenuation. Pancreas: Unremarkable. Adrenal glands: Unremarkable. Kidneys: The contrast enhanced kidneys are normal in size and without hydronephrosis. The kidneys enhance symmetrically. A nonobstructing calculus is identified in the upper pole of the left kidney. Abdominal vasculature: The abdominal aorta is normal in course and caliber noting scattered foci of atherosclerotic calcification. Bowel: There is a large hernia in the upper abdomen contains a nonobstructed segment of the transverse colon. A large hernia in the ventral pelvis contains nonobstructed loops of small bowel and colon. No bowel obstruction is seen. A small bowel anastomosis is identified within the large ventral pelvic hernia. There is mild focal dilatation at the anastomotic site, likely due to denervation. There are scattered colonic diverticula without CT evidence of acute diverticulitis. The appendix is not identified and reported surgically absent. Peritoneum: There is no intraperitoneal free air or abdominal ascites. Lymphadenopathy: None. Pelvic viscera: The the bladder is decompressed and grossly unremarkable. The uterus and adnexa are normal as visualized. A dominant follicle in the left ovary measures up to 3.3 cm. Skeletal structures: The skeletal structures are osteopenic. Moderate lumbosacral spondylosis is observed. No lytic or blastic lesions are seen. IMPRESSION: 1. There are no acute infectious or inflammatory findings in the abdomen or pelvis. 2. There are 2 large ventral hernias which contain nonobstructed loops of small bowel and colon. No bowel obstruction is identified. 3. Hepatomegaly and severe hepatic steatosis. 4. Nonobstructing left renal calculus. 5. Additional findings as above. Electronically signed by: Angelito Flores M.D. 11/04/2017 9:48 AM Dictated Date/Time: 11/04/2017 9:33 AM
[2017-11-04] MEDS ORDERED: ONDA4TAB46 PO (10:30)
[2017-11-04 10:41] VITALS: BP 153/93
== END 2017-11-04 10:42 | disposition home or self-care (01) ==
LOC: EDBD 07:53 → C.EDB 07:54
DX: R10.9 Unspecified abdominal pain (principal)

== ENCOUNTER 2018-01-10 21:36 | Emergency (ER) | payer BC ==
[~2018-01-10] VITALS: Ht 162.6 cm; Wt 200.0 kg
[~2018-01-10 21:36] MED LIST changes: -AMOX875T PO; -BENZ100C84 PO; +CYAN10005 PO; +DOCU-94 PO; -DOCU100C31 PO; +FAMO20TA11 PO; +FERR28TA2 PO; -FRRS300 PO; +ONDA4TAB10 SL; +PRT/20 PO; +SENN-61 PO
[2018-01-10 21:47] VITALS: Ht 162.6 cm; Wt 200.0 kg
[2018-01-10] MEDS ORDERED: SODIUM CHLORIDE 0.9% 1000ML 1,000 ML IV STA (21:58)
[2018-01-10] MEDS ORDERED: MoRPHine SULFATE 4 MG/ML 1 ML CARP\\VIAL IV STA (21:58)
[2018-01-10] MEDS ORDERED: ONDANSETRON INJ 2 MG/ML 2 ML VIAL IV STA (21:58)
[2018-01-10 22:05] VITALS: O2SAT 95
[2018-01-10] MEDS ORDERED: OPTIRAY 320 IV PRN (22:15)
[2018-01-10 22:30] LABS: BASO % 0.2 %; BASO ABS # 0.02 K/uL (0-0.2); EOS ABS # 0.22 K/uL (0-0.5); HEMOGLOBIN 12.2 g/dL (12.0-16.0); IG# 0.02 K/uL (0.00-0.02); LYMPH % 15.8 %; LYMPH ABS # 1.71 K/uL (1.2-3.4); MEAN CELL VOLUME 83.3 fL (80-100); MEAN CORPUSCULAR HEMOGLOBIN 26.1 pg (25-34); MEAN CORPUSCULAR HGB CONC 31.3 g/dl (32-36); MEAN PLATELET VOLUME 10.3 fL (7.4-10.4); MONO % 4.5 %; MONO ABS # 0.49 K/uL (0.11-0.59); NEUT % 77.3 %; NEUT ABS # 8.33 K/uL (1.4-6.5); PLATELET COUNT 325 K/uL (130-400); RED CELL DISTRIBUTION WIDTH CV 15.5 % (11.5-14.5); RED CELL DISTRIBUTION WIDTH SD 46.8 fL (36.4-46.3); WHITE BLOOD COUNT 10.79 K/uL (4.8-10.8)
[2018-01-10] MEDS ORDERED: FERR325T5 PO (22:32)
[2018-01-10 22:41] LABS: ISTAT IONIZED CALCIUM 1.14 mmol/l (1.12-1.32)
[2018-01-10 22:50] LABS: ALBUMIN 3.6 gm/dl (3.4-5.0); CALCIUM 8.8 mg/dl (8.5-10.1); CREATININE 1.15 mg/dl (0.60-1.20); POTASSIUM 3.9 mmol/L (3.5-5.1); TOTAL PROTEIN 7.4 gm/dl (6.4-8.2)
[2018-01-10] MEDS ORDERED: HYDROmorphone INJ 1 MG/ML SYR IV STA (23:03)
--- NOTE | 2018-01-11 00:49 | Surgery Consultation ---
Consultation Date of Consultation: Jan 11, 2018. Attending Physician: History of Present Illness pt is a 42 year old female who presents to Er with 8 hours history abdominal pain with nausea, no vomiting, the pain is located at left side abdomen, last BM 2 days ago, pt denies fever, no diarrhea, pt had colon resection for ischemic bowel at [facility] 3 years ago. pt developed abdominal hernia after colon resection, the hernias are getting bigger per pt. pt saw [facility] surgeon for possible abdominal hernia repair 2 months ago. pt's PMH with morbid obesity, BMI 75. now pt feels better, the pain is 7/10. Past Medical/Surgical History Medical Problems: (1) Abdominal pain Status: Acute (2) Dizziness Status: Acute (3) Dizziness Status: Acute (4) Fatigue Status: Acute (5) Low back pain Status: Acute (6) Nausea and vomiting Status: Acute (7) Syncope Status: Acute (8) Syncope, near Status: Acute (9) Vertigo Status: Acute Family History None presented Social History Smoking Status: Never Smoker Smokeless Tobacco Use: No Alcohol Use: none Drug Use: none Marital Status: Housing Status: lives with significant other Occupation Status: employed Allergies Coded Allergies: No Known Allergies (Unverified , 01/10/18) Home Medications Scheduled Cyanocobalamin (Vitamin B-12), 1,000 MCG PO QAM Docusate Sodium (Colace), 100 MG PO BID Famotidine (Pepcid), 20 MG PO QAM Ferrous Sulfate (Ferrous Sulfate), 325 MG PO BID Senna (Senokot), 8.6 MG PO QAM Current Inpatient Medications Current Inpatient Medications Medications (Trade) Dose Ordered Sig/Joyce Route Start Time Stop Time Status Last Admin Dose Admin Ioversol (Optiray 320) 125 ml UD PRN IV 01/10/18 22:15 01/14/18 22:14 Review of Systems Constitutional: + problem reported (obesity), No fever, No chills, No sweats, No weight loss, No weakness, No fatigue Eyes: No worsening of vision, No eye pain, No redness, No discharge, No diplopia, No problem reported ENT: No hearing loss, No unusual epistaxis, No nasal symptoms, No sore throat, No tinnitus, No dental problems, No trouble swallowing, No problem reported Respiratory: No cough, No sputum, No wheezing, No shortness of breath, No dyspnea on exertion, No dyspnea at rest, No hemoptysis, No problem reported Cardiovascular: + problem reported (cardiac acth in the past, ), No chest pain , No orthopnea, No PND, No edema, No claudication, No palpitations Abdomen: + pain, + nausea, + problem reported (S/P cholecystectomy, appendectomy, colectomy, ) Musculoskeletal: No joint pain, No muscle pain, No swelling, No calf pain, No problem reported Genitourinary - Female: No dysuria, No urinary frequency, No urinary urgency, No urinary incontinence, No urinary retention, No hematuria, No dysmenorrhea, No menorrhagia, No metrorrhagia, No rash, No vaginal bleeding, No vaginal discharge, No vaginal itching, No vulvodynia, No , No problem reported Neurologic: No memory loss, No paralysis, No weakness, No numbness/tingling, No vertigo, No balance problems, No problem reported Psychiatric: + problem reported (depression) Endocrine: No fatigue, No excessive thirst, No excessive urination, No problem reported Hematologic / Lymphatic: + problem reported (anemia), No abnormal bleeding/ bruising, No clotting problems, No swollen lymph nodes, No night sweats Integumentary: No rash, No itch, No new/changing skin lesions, No color change , No bleeding, No problem reported Allergic / Immunologic: No environmental allergies, No seasonal allergies, No pet sensitivities, No food allergies, No hives, No frequent infections, No poor healing, No prolonged convalescence, No problem reported Physical Exam Date Time Temp Pulse Resp B/P (MAP) Pulse Ox O2 Delivery O2 Flow Rate FiO2 01/10/18 23:30 84 21 132/83 98 01/10/18 23:09 88 16 100/64 98 01/10/18 22:09 100 01/10/18 22:05 95 Room Air 01/10/18 21:47 36.7 106 20 167/88 96 Room Air General Appearance: WD/WN, no apparent distress Head: normocephalic Eyes: normal inspection ENT: normal ENT inspection Neck: supple, no JVD Respiratory/Chest: chest non-tender, lungs clear, normal breath sounds, no respiratory distress Cardiovascular: regular rate, rhythm, no edema, no gallop, no JVD, no murmur Abdomen/GI: normal bowel sounds, soft, + tenderness (at left side abdomen, pt has 2 large abdominal hernias, one is located at left side abdomen, other one located at right side abdomen, no skin color change, ), + hernia Extremities/Musculoskelatal: normal inspection, no calf tenderness, normal capillary refill Neurologic/Psych: alert, normal mood/affect, oriented x 3 Skin: normal color, warm/dry, no rash Laboratory Results Last 24 Hours Test 01/10/18 22:08 01/10/18 22:22 01/10/18 22:27 White Blood Count 10.79 K/uL Red Blood Count 4.68 M/uL Hemoglobin 12.2 g/dL Hematocrit 39.0 % Mean Corpuscular Volume 83.3 fL Mean Corpuscular Hemoglobin 26.1 pg Mean Corpuscular Hemoglobin Concent 31.3 g/dl Platelet Count 325 K/uL Mean Platelet Volume 10.3 fL Neutrophils (%) (Auto) 77.3 % Lymphocytes (%) (Auto) 15.8 % Monocytes (%) (Auto) 4.5 % Eosinophils (%) (Auto) 2.0 % Basophils (%) (Auto) 0.2 % Neutrophils # (Auto) 8.33 K/uL Lymphocytes # (Auto) 1.71 K/uL Monocytes # (Auto) 0.49 K/uL Eosinophils # (Auto) 0.22 K/uL Basophils # (Auto) 0.02 K/uL RDW Standard Deviation 46.8 fL RDW Coefficient of Variation 15.5 % Immature Granulocyte % (Auto) 0.2 % Immature Granulocyte # (Auto) 0.02 K/uL Sodium Level 136 mmol/L Potassium Level 3.9 mmol/L Chloride Level 104 mmol/L Carbon Dioxide Level 25 mmol/L Anion Gap 7.0 mmol/L 18.0 mmol/L Blood Urea Nitrogen 21 mg/dl Creatinine 1.15 mg/dl Est Creatinine Clear Calc Drug Dose 113.5 ml/min Estimated GFR () 68.0 Estimated GFR (Non- 58.6 BUN/Creatinine Ratio 18.1 Random Glucose 138 mg/dl Calcium Level 8.8 mg/dl Total Bilirubin 0.4 mg/dl Direct Bilirubin 0.1 mg/dl Aspartate Amino Transf (AST/SGOT) 19 U/L Alanine Aminotransferase (ALT/SGPT) 28 U/L Alkaline Phosphatase 72 U/L Total Protein 7.4 gm/dl Albumin 3.6 gm/dl Lipase 160 U/L Human Chorionic Gonadotropin, Qual NEG Bedside Lactic Acid Venous 1.66 mmol/L Bedside Hemoglobin 12.9 g/dl Bedside Hematocrit 38 % Bedside Sodium 139 mEq/L Bedside Potassium 4.0 mEq/L Bedside Chloride 102 mEq/L Bedside Total CO2 23 mEq/l Bedside Blood Urea Nitrogen 21 mg/dl Bedside Creatinine 1.0 mg/dl Bedside Glucose (other) 142 mg/dl Bedside Ionized Calcium (Dat) 1.14 mmol/l Assessment & Plan CT scan- 2 large abdominal hernias contain small and large bowel, the report is pending, assessment, pt is a 42 year old female who presents to ER with 8 hours history left abdominal pain, IMP: possible incarcerated abdominal hernias plan, base on pt is super obesity, and pt had colectomy [place] [facility] and pt saw [facility] surgeon for hernia repair 2 months ago, pt needs expert hernia surgeon for her hernia repair for higher chance to success. I recommend to transfer to higher level care, D/W the benefits, risks and alternatives of the transfer, pt agrees with transfer to higher level care, D/W with ER attending.
[2018-01-11] MEDS ORDERED: SODIUM CHLORIDE 0.9% 1000ML 1,000 ML IV STA (01:41)
[2018-01-11] MEDS ORDERED: HYDROmorphone INJ 1 MG/ML SYR IV STA (01:41)
--- NOTE | 2018-01-11 01:56 | EMERGENCY ROOM VISIT NOTE ---
History First contact with patient: 21:50 Chief Complaint: ABDOMINAL PAIN Stated Complaint: ABDOMINAL PAIN Nursing Triage Summary: Reports abd pain in center of abdomen that started this morning. Also has nausea. Denies vomiting. Last BM 2 days ago. Has a hernia in the same area she is having pain. History of SBO. History of Present Illness The patient is a 42 year old female who presents to the Emergency Room with complaints of severe mid abdominal pain for the past days steadily getting worse currently 9 out of 10. Movement makes it worse nothing makes it better. It does not radiate. Patient has a history of bowel obstructions and has very large ventral hernias. Patient states she has had a lack of appetite. Patient feels nauseous but has no vomiting. No bowel movement for 2 days. She states this feels similar to her prior bowel obstruction. Patient denies chest pain, dyspnea, fever, chills, cough, congestion, back pain, urinary symptoms. Lauren did her original bowel resection from the small bowel obstruction secondary to hernia in 2014. She is seen the surgeon, Dr. eKssler. Review of Systems An 10 system review of systems was completed with positives and pertinent negatives listed in the HPI. Past Medical/Surgical History Medical Problems: (1) Intestinal Obstruct Nos Surgical Problems: (1) Hx of cholecystectomy (2) Hx of cholecystectomy Small bowel obstruction, partial bowel resection Family History None presented Social History Smoking Status: Never Smoker Drug Use: none Marital Status: Housing Status: lives with significant other Occupation Status: employed Current/Historical Medications Scheduled Cyanocobalamin (Vitamin B-12), 1,000 MCG PO QAM Docusate Sodium (Colace), 100 MG PO BID Famotidine (Pepcid), 20 MG PO QAM Ferrous Sulfate (Ferrous Sulfate), 325 MG PO BID Senna (Senokot), 8.6 MG PO QAM Physical Exam Vital Signs Date Time Temp Pulse Resp B/P (MAP) Pulse Ox O2 Delivery O2 Flow Rate FiO2 01/11/18 01:30 96 16 126/77 98 Room Air 01/10/18 23:30 84 21 132/83 98 01/10/18 23:09 88 16 100/64 98 01/10/18 22:09 100 01/10/18 22:05 95 Room Air 01/10/18 21:47 36.7 106 20 167/88 96 Room Air Physical Exam VITALS: Vitals are noted on the nurse's note and reviewed by myself. Vital signs hypertensive. GENERAL: Pleasant female who appears in pain, in no acute distress, nondiaphoretic, well-developed well-nourished. SKIN: The skin was without rashes, erythema, edema, or bruising. There is no tenting of the skin. Capillary reflex less than 2 seconds. HEAD: Normocephalic atraumatic. EARS: External auditory canals clear, tympanic membranes pearly ca without erythema or effusion bilaterally. EYES: Pupils equal round and reactive to light and accommodation. Conjunctivae without injection, sclerae without icterus. Extraocular movements intact. NOSE: Patent, turbinates without inflammation or discharge. MOUTH: Mucous membranes moist. Pharynx without erythema or exudate. Uvula midline. Airway patent. Tongue does not deviate. NECK: Supple without nuchal rigidity. No lymphadenopathy. No thyromegaly. Cervical spine is nontender. No JVD. HEART: Regular rate and rhythm without murmurs gallops or rubs. LUNGS: Clear to auscultation bilaterally without wheezes, rales or rhonchi. No retractions or accessory muscle use. ABDOMEN: Positive bowel sounds x 4. Normal tympanic percussion. Soft, protuberant, obese, multiple ventral hernias, unable to reduce, diffusely tender to palpation. Lynn sign negative. No guarding or rebound tenderness. No CVA tenderness MUSCULOSKELETAL: No muscle atrophy, erythema, noted. NEURO: Patient was alert and oriented to person place and time. Normal sensation to light and sharp touch. No focal neurological deficits. Medical Decision & Procedures Laboratory Results 01/10/18 22:08 Red Blood Count 4.68, Mean Corpuscular Volume 83.3, Mean Corpuscular Hemoglobin 26.1, Mean Corpuscular Hemoglobin Concent 31.3, Mean Platelet Volume 10.3, Neutrophils (%) (Auto) 77.3, Lymphocytes (%) (Auto) 15.8, Monocytes (%) (Auto) 4.5, Eosinophils (%) (Auto) 2.0, Basophils (%) (Auto) 0.2, Neutrophils # (Auto) 8.33, Lymphocytes # (Auto) 1.71, Monocytes # (Auto) 0.49, Eosinophils # (Auto) 0.22, Basophils # (Auto) 0.02 01/10/18 22:08 Test 01/10/18 22:08 01/10/18 22:22 01/10/18 22:27 01/11/18 00:30 White Blood Count 10.79 K/uL (4.8-10.8) Red Blood Count 4.68 M/uL (4.2-5.4) Hemoglobin 12.2 g/dL (12.0-16.0) Hematocrit 39.0 % (37-47) Mean Corpuscular Volume 83.3 fL (80-100) Mean Corpuscular Hemoglobin 26.1 pg (25-34) Mean Corpuscular Hemoglobin Concent 31.3 g/dl (32-36) Platelet Count 325 K/uL (130-400) Mean Platelet Volume 10.3 fL (7.4-10.4) Neutrophils (%) (Auto) 77.3 % Lymphocytes (%) (Auto) 15.8 % Monocytes (%) (Auto) 4.5 % Eosinophils (%) (Auto) 2.0 % Basophils (%) (Auto) 0.2 % Neutrophils # (Auto) 8.33 K/uL (1.4-6.5) Lymphocytes # (Auto) 1.71 K/uL (1.2-3.4) Monocytes # (Auto) 0.49 K/uL (0.11-0.59) Eosinophils # (Auto) 0.22 K/uL (0-0.5) Basophils # (Auto) 0.02 K/uL (0-0.2) RDW Standard Deviation 46.8 fL (36.4-46.3) RDW Coefficient of Variation 15.5 % (11.5-14.5) Immature Granulocyte % (Auto) 0.2 % Immature Granulocyte # (Auto) 0.02 K/uL (0.00-0.02) Est Creatinine Clear Calc Drug Dose 113.5 ml/min Estimated GFR () 68.0 Estimated GFR (Non- 58.6 BUN/Creatinine Ratio 18.1 (10-20) Calcium Level 8.8 mg/dl (8.5-10.1) Total Bilirubin 0.4 mg/dl (0.2-1) Direct Bilirubin 0.1 mg/dl (0-0.2) Aspartate Amino Transf (AST/SGOT) 19 U/L (15-37) Alanine Aminotransferase (ALT/SGPT) 28 U/L (12-78) Alkaline Phosphatase 72 U/L (45-117) Total Protein 7.4 gm/dl (6.4-8.2) Albumin 3.6 gm/dl (3.4-5.0) Lipase 160 U/L (73-393) Human Chorionic Gonadotropin, Qual NEG (NEG) Bedside Lactic Acid Venous 1.66 mmol/L (0.90-1.70) Bedside Hemoglobin 12.9 g/dl (12.0-16.0) Bedside Hematocrit 38 % (37-47) Bedside Sodium 139 mEq/L (135-144) Bedside Potassium 4.0 mEq/L (3.3-5.0) Bedside Chloride 102 mEq/L (101-112) Bedside Total CO2 23 mEq/l (24-31) Anion Gap 18.0 mmol/L (16-25) Bedside Blood Urea Nitrogen 21 mg/dl (7-18) Bedside Creatinine 1.0 mg/dl (0.6-1.3) Bedside Glucose (other) 142 mg/dl (70-99) Bedside Ionized Calcium (Dat) 1.14 mmol/l (1.12-1.32) Urine Color YELLOW Urine Appearance CLEAR (CLEAR) Urine pH 5.5 (4.5-7.5) Urine Specific [place] > 1.045 (1.000-1.030) Urine Protein NEG (NEG) Urine Glucose (UA) NEG (NEG) Urine Ketones NEG (NEG) Urine Occult Blood NEG (NEG) Urine Nitrite NEG (NEG) Urine Bilirubin NEG (NEG) Urine Urobilinogen NEG (NEG) Urine Leukocyte Esterase NEG (NEG) Urine WBC (Auto) 5-10 /hpf (0-5) Urine RBC (Auto) 0-4 /hpf (0-4) Urine Hyaline Casts (Auto) 1-5 /lpf (0-5) Urine Epithelial Cells (Auto) >30 /lpf (0-5) Urine Bacteria (Auto) NEG (NEG) Medications Administered Medications (Trade) Dose Ordered Sig/Joyce Route Start Time Stop Time Status Last Admin Dose Admin Morphine Sulfate (MoRPHine SULFATE INJ) 4 mg NOW STAT IV 01/10/18 21:58 01/10/18 22:00 DC 01/10/18 22:20 4 MG Sodium Chloride 1,000 ml @ 999 mls/hr Q1H1M STAT IV 01/10/18 21:58 01/10/18 22:58 DC 01/10/18 22:20 999 MLS/HR Ondansetron HCl (Zofran Inj) 4 mg NOW STAT IV 01/10/18 21:58 01/10/18 22:01 DC 01/10/18 22:20 4 MG Hydromorphone HCl (Dilaudid Inj) 1 mg NOW STAT IV 01/10/18 23:03 01/10/18 23:04 DC 01/10/18 23:37 1 MG ED Course Prior records/ancillary studies reviewed. Triage Nursing notes reviewed. Additional history obtained from []. The patient's history was concerning for abdominal pain. Differential diagnosis: Etiologies such as appendicitis, diverticulitis, PUD, biliary pathology, UTI, pancreatitis, obstruction, mesenteric ischemia, aortic pathology, infections, inflammatory bowel disease, renal colic, as well as others were entertained. Physical examination findings: As above. ER treatment provided: Morphine, Zofran, Dilaudid On reassessment the patient felt better. Diagnostics interpreted by me: The labs revealed no leukocytosis. Negative lactic acid. Stable H&H. Hyperglycemia without DKA Imaging studies: CT ABDOMEN & PELVIS With Contrast: Very large ventral hernias. The more superior ventral hernia contains fat and portions of nonobstructed transverse colon. The more inferior ventral hernia contains portions of the right colon and small bowel loops, some of which appear obstructed and some which appear decompressed. No bowel wall thickening, free fluid, or free air. Probable prior appendectomy. Right basilar atelectasis and/or scarring. Hepatic steatosis. Hepatomegaly. Prior cholecystectomy. Borderline size of the spleen. No hydronephrosis or obstructing stone. Grade 1 degenerative anterolisthesis of L4 on L5. Decompressed bladder. Radiologist: Erasto Yanez M.D. Surgery was consulted and Dr. Jasso recommends transfer to [facility]. I spoke to the [facility] surgeon, Dr. Griffith, accepts transfer of this patient. Case was discussed. All paperwork will be sent with the patient. Patient is agreeable to treatment plan of transfer to [facility] via ALS for further evaluation and treatment. Exam and history are concerning for bowel obstruction secondary to hernia. Our surgery does not feel comfortable caring for her and recommends transfer to tertiary facility. I spoke to [facility] surgery, Dr. Griffith, accepts transfer this patient. Patient will be transferred via ALS. Patient was neurovascularly and neurologically intact. She was afebrile nontoxic. Negative lactic acid. No white count. Patient was offered NG tube and declined. I felt this is reasonable as she was not actively vomiting. Patient was reassessed multiple times. By the evaluation outlined above emergent etiologies such as appendicitis, diverticulitis, PUD, biliary pathology, UTI, pancreatitis, mesenteric ischemia , aortic pathology, infections, inflammatory bowel disease, renal colic, as well as others were deemed relatively unlikely. The pt informed about the findings as listed above. All questions were answered and pleased with the treatment. Case reviewed with my attending The chart was completed utilizing [employer] Speech voice recognition software. Grammatical errors, random word insertions, pronoun errors, and incomplete sentences are an occassional consequence of this system due to software limitations, ambient noise, and hardware issues. Any formal questions or concerns about the content, text, or information contained within the body of this dictation should be directly addressed to the physician dental assistant teacher for clarification. Medical Decision as above Medication Reconcilliation Current Medication List: was personally reviewed by me Blood Pressure Screening Patient's blood pressure: Normal blood pressure Impression Primary Impression: Ventral hernia with bowel obstruction Departure Information Dispostion Transfer Acute Care Facility Condition GOOD Referrals Carmella Ortiz M.D. (PCP) Patient Instructions My [facility]
[2018-01-11] MEDS ORDERED: FENTANYL CITRATE INJ 50 MCG/1 ML 2 ML VIAL IV STA (03:32)
[2018-01-11 04:05] VITALS: BP 134/87; PULSE 94; O2SAT 95
[2018-01-11] MEDS ORDERED: ONDANSETRON INJ 2 MG/ML 2 ML VIAL IV STA (04:23)
[2018-01-11 04:30] VITALS: TEMP 36.6
--- NOTE | 2018-01-11 07:05 | DIAGNOSTIC IMAGING REPORT ---
ABD/PELVIS IV CONTRAST ONLY CT DOSE: 2515.90 mGy.cm HISTORY: Pain severe med abd pain, ? Incarcerated hernia/Ischemic Bowel TECHNIQUE: Multiaxial CT images of the abdomen and pelvis were performed following the use of intravenous contrast. A dose lowering technique was utilized adhering to the principles of ALARA. COMPARISON STUDY: 12/03/2017 FINDINGS: Chronic linear scarring right base. Minimal dependent basilar atelectasis. Liver spleen and pancreas appear unremarkable. Large ventral hernias. The most superior of the ventral hernias as a maximum transaxial 10 cm in maximum transverse dimension. This contains nonobstructive components of the colon. Inferior to this hernia is a second hernia demonstrating several distended loops of bowel. This hernia has a maximum measurement of 10 cm in maximum cross-sectional dimension. Several much smaller hernias are present in the anterior abdominal wall although this do not appear to contain bowel to a significant degree. IMPRESSION: 1. Large ventral hernias the most superior which contains nonobstructive bowel. 2. The inferior midline hernia contains a combination colon as well as small bowel with at least moderate distention of several bowel loops. 3. No evidence of pneumatosis, free air, abscess, or collection. 4. Stable fatty infiltration of liver. The above report was generated using voice recognition software. It may contain grammatical, syntax or spelling errors. Electronically signed by: Nain Vasquez M.D. 01/11/2018 7:03 AM Dictated Date/Time: 01/11/2018 6:58 AM
== END 2018-01-11 04:30 | disposition short-term general hospital (02) ==
LOC: C.EDB 21:37
DX: K43.6 Other and unspecified ventral hernia with obstruction, without gangrene (principal); E66.01 Morbid (severe) obesity due to excess calories; Z68.45 Body mass index [BMI] 70 or greater, adult; Z90.49 Acquired absence of other specified parts of digestive tract; Z87.19 Personal history of other diseases of the digestive system

== ENCOUNTER 2018-08-22 21:17 | Inpatient (IN) ==
[2018-08-22] MEDS ORDERED: KETOROLAC TROMETHAMINE 15 MG/ML VIAL IV STA (22:06)
[2018-08-22] MEDS ORDERED: ONDANSETRON INJ 2 MG/ML 2 ML VIAL IV STA (22:06)
[2018-08-22] MEDS ORDERED: SODIUM CHLORIDE 0.9% 500 ML IV SCH (22:15)
[2018-08-22 22:25] LABS: Basophils # (auto) 0.02 K/uL (0-0.2); Basophils % (auto) 0.1 %; Eosinophils # (auto) 0.05 K/uL (0-0.5); Eosinophils % (auto) 0.3 %; Hematocrit (blood only) 46.5 % (37-47); Hemoglobin 15.4 g/dL (12.0-16.0); Immature Granulocytes # (auto) 0.08 K/uL (0.00-0.02); Immature Granulocytes % (auto) 0.4 %; Lymphocytes # (auto) 2.03 K/uL (1.2-3.4); Lymphocytes % (auto) 10.3 %; Mean Corpuscular Hgb Conc 33.1 g/dL (32-36); Mean Corpuscular Volume 91.5 fL (80-100); Mean Platelet Volume 10.6 fL (7.4-10.4); Monocytes # (auto) 1.37 K/uL (0.11-0.59); Monocytes % (auto) 6.9 %; Neutrophils # (auto) 16.17 K/uL (1.4-6.5); Platelet Count 343 K/uL (130-400); RDW Coefficient of Variation 13.8 % (11.5-14.5); RDW Standard Deviation 46.6 fL (36.4-46.3); Red Blood Count 5.08 M/uL (4.2-5.4); White Blood Count 19.72 K/uL (4.8-10.8)
[2018-08-22] MEDS: MoRPHine SULFATE 4 MG/ML 1 ML CARP\\VIAL IV PRN (22:39)
[2018-08-22 22:47] LABS: Albumin Level 3.6 gm/dl (3.4-5.0); BUN Creatinine Ratio 18.9 (10-20); Calcium 9.1 mg/dl (8.5-10.1); Creatinine Clr Calc Pharmacy 118.1 ml/min; Est GFR (African American) 81.9; Est GFR (Non-African American) 70.7; Potassium 3.8 mmol/L (3.5-5.1)
[2018-08-22 22:50] LABS: Albumin Globulin Ratio 0.9 (0.9-2); Bilirubin,Total 0.4 mg/dl (0.2-1); Globulin 4.1 gm/dl (2.5-4.0); Total Protein 7.7 gm/dl (6.4-8.2)
[2018-08-22 22:54] LABS: Pregnancy Test, Serum Negative (Negative)
--- NOTE | 2018-08-22 23:15 | XRay Report ---
XR chest 1V portable HISTORY: Cough. Epigastric pain. COMPARISON: Chest 08/18/2018. FINDINGS: Chronic elevation of the right hemidiaphragm, unchanged. No pneumothorax. No pleural effusi ons. No new focal lung consolidations to suggest pneumonia. No evidence for pulmonary edema. The hear t is normal in size. IMPRESSION: No significant change compared to the prior study. No acute process. Electronically signed by: Rey Esqueda M.D. 08/22/2018 11:13 PM
[2018-08-22] MEDS ORDERED: IOVERSOL 100ml IV PRN (23:57)
--- NOTE | 2018-08-23 00:26 | Emergency Department Note ---
Entered by Fanny Pedro acting as a scribe for History of Present Illness General Chief complaint: Abdominal Pain Stated complaint: SEVERE STOMACH PAIN, NAUSEA, VOMITING Time Seen by Provider: 08/22/18 22:00 Source: patient Mode of arrival: ambulatory Limitations: no limitations History of Present Illness Provider complaint: abdominal pain Onset (ago): hour(s) 2 Location: abdomen Radiation: back Pain Consistency: + other (worsening) Maximum Pain Intensity: 10 Current Pain Intensity: 9 Quality: + other (radiating) Associated symptoms: + denies other symptoms (dysuria, frequency), + nausea/vomiting (nausea, no emesis) and + other (hot and cold flashes) The patient is a 43 year old female who presents to the Emergency Room with complaints of a worsening abdominal pain that began 2 hours ago. The patient reports that she did have some discomfort throughout the day but that the pain worsened suddenly. She rates her current pain a 9/10 and states it radiates to her back. She notes that she has been nauseous as well but denies any emesis. The patient reports that she has a history of bowel obstructions and notes she last had an obstruction January 2018. She states that her current symptoms do feel similar to her previous bowel obstructions. The patient reports that her last bowel movement was a few days ago. She denies any dysuria or frequency but notes she has had hot and cold flashes. The patient states that she was recently diagnosed with walking pneumonia and prescribed steroids and antibiotics. She notes she finished her antibiotics but is still taking Prednisone. Home Medications Home Medications Medication Instructions Recorded Confirmed Type cholecalciferol (vitamin D3) 1,000 units PO QAM 05/11/18 08/22/18 History [Vitamin D3] cyanocobalamin (vitamin B-12) 1,000 mcg PO QAM 05/11/18 08/22/18 History [Vitamin B-12] metformin 1,000 mg PO BIDM 05/11/18 08/22/18 History gabapentin 800 mg PO TID 07/20/18 08/22/18 History albuterol sulfate 2 puff INHALATION Q4 PRN 08/22/18 08/22/18 History levonorgestrel-ethinyl estrad 1 tab PO DAILY 08/22/18 08/22/18 History [Stanislav (28)] meloxicam 15 mg PO DAILY 08/22/18 08/22/18 History prednisone 10 mg PO UD 08/22/18 08/22/18 History Allergies Allergy/AdvReac Type Severity Reaction Status Date / Time tamsulosin [From Flomax] Allergy Mild Unknown Verified 08/22/18 23:15 Past Med/Surg History Medical History SBO (small bowel obstruction) (Acute) Anemia Degenerative disc disease GERD (gastroesophageal reflux disease) Migraine Osteoarthritis Surgical History History of adenoidectomy History of bowel resection D/T SCAR TISSUE History of cardiac cath VERTIGO>OCTOBER 2017 (NO PROBLEMS) History of cholecystectomy History of colonoscopy History of esophagogastroduodenoscopy (EGD) Hx of cholecystectomy Family History Mother Family history of diabetes mellitus Social History Preferred Language: Tristanian Beliefs That Will Affect Care: None Current Living Situation: Family Feels Safe at Home: Yes Smoking Status: Never smoker Hx Alcohol Use: No Hx Substance Use: No Review of Systems See HPI for pertinent positives & negatives. and A total of 10 systems reviewed and were otherwise negative Physical Exam Vital Signs Vital Signs - 24 hr 08/22/18 21:24 08/22/18 22:33 08/22/18 23:00 Temperature 36.7 C Temperature Source Oral Sepsis Recent Fever Within 48 Hours No Sepsis Action Taken by Nursing No Action Required Pulse Rate 92 H Pulse Rate [Right Finger] 89 Pulse Rhythm Regular Pulse Rhythm [Right Finger] Regular Pulse Strength Normal Pulse Strength [Right Finger] Normal Respiratory Rate 22 18 Respiratory Effort / Characteristics Non-Labored Spontaneous Non-Labored Respiratory Depth Normal Normal Respiratory Pattern Regular Regular Blood Pressure 96/59 L Blood Pressure [Right Arm] 111/71 Blood Pressure Mean 71 Blood Pressure Mean [Right Arm] 84 Blood Pressure Position Sitting Blood Pressure Position [Right Arm] Lying Pulse Oximetry 98 97 Oxygen Delivery Method Room Air Room Air Room Air 08/23/18 00:31 Temperature Temperature Source Sepsis Recent Fever Within 48 Hours Sepsis Action Taken by Nursing Pulse Rate Pulse Rate [Right Finger] 95 H Pulse Rhythm Pulse Rhythm [Right Finger] Regular Pulse Strength Pulse Strength [Right Finger] Normal Respiratory Rate 16 Respiratory Effort / Characteristics Non-Labored Respiratory Depth Normal Respiratory Pattern Regular Blood Pressure Blood Pressure [Right Arm] 120/83 Blood Pressure Mean Blood Pressure Mean [Right Arm] 95 Blood Pressure Position Blood Pressure Position [Right Arm] Pulse Oximetry 98 Oxygen Delivery Method Room Air GENERAL: Patient is in no acute distress. HEENT: No acute trauma, normocephalic atraumatic, mucous membranes moist, no nasal congestion, no scleral icterus. NECK: No stridor, no adenopathy, no meningismus, trachea is midline. LUNGS: Clear to auscultation bilaterally, no wheeze, no rhonchi, breath sounds equal. HEART: Without murmurs gallops or rubs, regular rate and rhythm. ABDOMEN: Distention noted, multiple abdominal wall hernias which are reducible, bowel sounds are positive, abdomen soft, moderately tender diffusely. EXTREMITIES: No cyanosis or edema, full range of motion of all the joints without pain or difficulty, no signs for acute trauma. NEUROLOGIC: Oriented x 3, no acute motor or sensory deficits, no focal weakness. SKIN: No rash, no jaundice, no diaphoresis. Course 2202: Past medical records reviewed. The patient was evaluated in room C4, and a complete history and physical examination were performed. Spoke to the patient about her findings thus far, she does seem more comfortable but still has some pain. Case has been assumed by Dr. Frias at the change of shift. Administered Medications Ioversol (Optiray 320 100ml) 100 ml IV ONCE PRN PRN Reason: Interaction Checking Stop: 08/26/18 23:56 Last Admin: 08/22/18 23:58 Dose: 94 ml Documented by: [id number] Morphine Sulfate (Morphine Sulfate) 4 mg IV Q30M PRN PRN Reason: Pain Stop: 09/05/18 22:05 Last Admin: 08/23/18 00:30 Dose: 4 mg Documented by: [id number] Admin: 08/22/18 22:39 Dose: 4 mg Documented by: [id number] Discontinued Medications Sodium Chloride (Nss) 500 mls @ 999 mls/hr IV .Q31M KHADRA Stop: 08/22/18 22:45 Last Infusion: 08/22/18 23:07 Dose: 0 mls/hr Documented by: [id number] Admin: 08/22/18 22:35 Dose: 999 mls/hr Documented by: [id number] Ketorolac Tromethamine (Toradol) 15 mg IV NOW STA Stop: 08/22/18 22:07 Last Admin: 08/22/18 22:36 Dose: 15 mg Documented by: [id number] Ondansetron HCl (Zofran) 4 mg IV NOW STA Stop: 08/22/18 22:07 Last Admin: 08/22/18 22:37 Dose: 4 mg Documented by: [id number] Medical Decision Making Differential Diagnosis Differential Diagnosis includes: bowel obstruction, pancreatitis, hernia, musculoskeletal pain, UTI, pneumonia, dehydration, electrolyte imbalance, and renal colic. Medical Records Attestation: I reviewed the patient's medical records. Home Medications Current Medication List: was personally reviewed by me Laboratory Data Attestation: I reviewed the patient's lab results. Result diagrams: 08/22/18 22:15 08/22/18 22:15 Lab Results 08/22/18 08/22/18 08/22/18 Range/Units 22:15 22:15 22:15 WBC 19.72 H (4.8-10.8) K/uL RBC 5.08 (4.2-5.4) M/uL Hgb 15.4 (12.0-16.0) g/dL Hct 46.5 (37-47) % MCV 91.5 (80-100) fL MCH 30.3 (25-34) pg MCHC 33.1 (32-36) g/dL RDW Std Deviation 46.6 H (36.4-46.3) fL RDW Coeff of [place] 13.8 (11.5-14.5) % Plt Count 343 (130-400) K/uL MPV 10.6 H (7.4-10.4) fL Immature Gran % (Auto) 0.4 % Neut % (Auto) 82.0 % Lymph % (Auto) 10.3 % [place] % (Auto) 6.9 % Eos % (Auto) 0.3 % Baso % (Auto) 0.1 % Immature Gran # (Auto) 0.08 H (0.00-0.02) K/uL Neut # (Auto) 16.17 H (1.4-6.5) K/uL Lymph # (Auto) 2.03 (1.2-3.4) K/uL [place] # (Auto) 1.37 H (0.11-0.59) K/uL Eos # (Auto) 0.05 (0-0.5) K/uL Baso # (Auto) 0.02 (0-0.2) K/uL Sodium 138 (136-145) mmol/L Potassium 3.8 (3.5-5.1) mmol/L Chloride 103 (98-107) mmol/L Carbon Dioxide 28 (21-32) mmol/L Anion Gap 7.0 (3-11) BUN 18 (7-18) mg/dl Creatinine 0.98 (0.6-1.2) mg/dl Est Cr Clr Drug Dosing 118.1 ml/min Est GFR ( Amer) 81.9 Est GFR (Non-Af Amer) 70.7 BUN/Creatinine Ratio 18.9 (10-20) Glucose 94 (70-99) mg/dl Calcium 9.1 (8.5-10.1) mg/dl Total Bilirubin 0.4 (0.2-1) mg/dl AST 15 (15-37) U/L ALT 51 (12-78) U/L Alkaline Phosphatase 56 (45-117) U/L Total Protein 7.7 (6.4-8.2) gm/dl Albumin 3.6 (3.4-5.0) gm/dl Globulin 4.1 H (2.5-4.0) gm/dl Albumin/Globulin Ratio 0.9 (0.9-2) Lipase 226 (73-393) U/L HCG, Qual Negative (Negative) Imaging Data Radiologist's Impression: Radiology results as stated below per my review and the radiologist's interpretation: XR chest 1V portable HISTORY: Cough. Epigastric pain. COMPARISON: Chest 08/18/2018. FINDINGS: Chronic elevation of the right hemidiaphragm, unchanged. No pneumothorax. No pleural effusions. No new focal lung consolidations to suggest pneumonia. No evidence for pulmonary edema. The heart is normal in size. IMPRESSION: No significant change compared to the prior study. No acute process. Electronically signed by: Rey Esqueda M.D. 08/22/2018 11:[address] abd/pelvis: Blood Pressure Blood Pressure Findings: Normal blood pressure MDM Narrative There is a significant leukocytosis at 19,000, this could be consistent with infection. No concerning anemia. No significant electrolyte abnormality, kidney failure or hepatitis. There is no pancreatitis. testing is negative. Chest film does not show pneumonia, mediastinal widening or free air. Urinalysis result is pending. The patient was not febrile or toxic. She did not show findings of peritonitis clinically. Abdominal and pelvis CT results are pending. The patient received IV saline, she was given IV morphine, IV Toradol and IV Zofran. She received IV Dilaudid. Her pain is improved but still present. The patient's case is being assumed by Dr. Frias, please see her notes for the results of the CT and the final disposition and plan. At this point, the cause for her presentation is unclear. Impression & Plan Abdominal pain, diffuse, Leukocytosis, Hx SBO Discharge Plan Visit Data Chief Complaint: Abdominal Pain Stated Complaint: SEVERE STOMACH PAIN, NAUSEA, VOMITING ED Provider: Angelito Blanco Discharge Problem: Abdominal pain, diffuse, Leukocytosis, Hx SBO Patient Disposition: Still a Patient Forms Stand Alone Forms: Call Back Authorization, [facility] Prescriptions Prescriptions: No Action gabapentin 400 mg Capsule 800 mg PO TID RF: 0 prednisone 10 mg tablet 10 mg PO UD RF: 0 meloxicam 15 mg tablet 15 mg PO DAILY RF: 0 albuterol sulfate 90 mcg/actuation HFA aerosol inhaler 2 puff Inhalation Q4 PRN (Reason: Shortness Of Breath Or Wheezing) RF: 0 levonorgestrel-ethinyl estrad [Marlissa (28)] 0.15-0.03 mg tablet 1 tab PO DAILY RF: 0 metformin 500 mg tablet 1,000 mg PO BIDM RF: 0 cyanocobalamin (vitamin B-12) [Vitamin B-12] 1,000 mcg Tablet 1,000 mcg PO QAM RF: 0 cholecalciferol (vitamin D3) [Vitamin D3] 1,000 unit Capsule 1,000 units PO QAM RF: 0 Referrals Referrals: Carmella Ortiz MD [Primary Care Provider] - Discharge Problem: Leukocytosis Qualifiers: Leukocytosis type: unspecified Qualified Code(s): D72.829 - Elevated white blood cell count, unspecified The scribe's documentation has been prepared under my direction and personally reviewed by me in its entirety. I confirm that the note above accurately reflects all work, treatment, procedures, and medical decision making performed by me.
[2018-08-23] MEDS ORDERED: HYDROmorphone INJ 0.5 MG/0.5 ML SYR IV STA (00:27)
[2018-08-23] MEDS: MoRPHine SULFATE 4 MG/ML 1 ML CARP\\VIAL IV PRN (00:30)
[2018-08-23] MEDS ORDERED: ONDANSETRON INJ 2 MG/ML 2 ML VIAL IV STA (01:15)
--- NOTE | 2018-08-23 01:20 | Emergency Department Note ---
ED Visit Note This case was signed out to me at change of shift awaiting results of a CT scan of the abdomen/pelvis. CT report as interpreted by stat read: . : Leukocytosis Qualifiers: Leukocytosis type: unspecified Qualified Code(s): D72.829 - Elevated white blood cell count, unspecified
--- NOTE | 2018-08-23 01:56 | History & Physical Report ---
Date of Service August 23, 2018 Assessment & Plan (1) Abdominal pain, diffuse: 43-year-old female who presents with acute abdominal pain associated with nausea. She says she ate at 5 PM and the pain started at 7:30 PM. Last bowel movement was 2 days ago. Denies any urinary symptoms. Pain was 9 out of 10 when she presented to the emergency room. She has past medical history significant for frequent small bowel obstructions she says about 5 in the last 5 years. She has had a small bowel resection for this reason in the past but has had other instances not requiring surgical intervention. Of note she says she is currently taking prednisone for a diagnosis of walking pneumonia, has finished first 3 days worth (40mg daily), and was about to start 3 days x 30 mg, then 3 days x 20mg. Currently asymptomatic from PNA point of view. ED course: Afebrile, non-tachycardic. Normotensive. CBC within normal limits with the exception of leukocytosis 19,000. Chemistry profile within normal limits, hCG negative. CT abdomen and pelvis with contrast shows several small bowel loops that are distended with fluid and gas. Subtle partial small bowel obstruction. No air, multiple anterior abdominal wall hernias, stable. Labs show: Lipase normal. Management: Given Toradol, Dilaudid and morphine. Fluids started. NG tube to be placed. Zofran. Assessment: -Partial small bowel obstruction Plan: -Routine general surgery consult placed -KUB in the a.m. -Pain control with IV Toradol and IV Dilaudid for severe pain -Zofran IV PRN -Bowel rest n.p.o., IV fluids at 100 -BMP AM to include mag, phos. Optimize elecatrolytes. FEN/GI: NSS @ 100 ml/hr. NPO DVT ppx: SCDs CODE STATUS: Full code as discussed with patient and at bedside DISPO: MedSurg (2) Leukocytosis: Patient is currently on a course of prednisone that she was given in the outpatient setting for "walking pneumonia". -has finished first 3 days worth (40mg daily), and was about to start 3 days x 30 mg, then 3 days x 20mg. -Currently asymptomatic from PNA point of view. -Likely a reactive leukocytosis from prednisone. -follow clinically (3) Hx SBO: Has required small bowel resection in the past although since then has not required surgical intervention. (4) Morbidly obese: Currently on metformin only for weight loss, will hold in the setting of SBO. -Contributing to abdominal wall hernias (5) Disc disease, degenerative, lumbar or lumbosacral: Will hold home gabapentin for her sciatica and meloxicam. Pain medication as above. History of Present Illness Chief Complaint: Abdominal pain Primary Care Provider: Carmella Ortiz MD 43-year-old female who presents with acute abdominal pain associated with nausea. She says she ate at 5 PM and the pain started at 7:30 PM. Last bowel movement was 2 days ago. Denies any urinary symptoms. Pain was 9 out of 10 when she presented to the emergency room. She has past medical history significant for frequent small bowel obstructions she says about 5 in the last 5 years. She has had a small bowel resection for this reason in the past but has had other instances not requiring surgical intervention. Of note she says she is currently taking prednisone for a diagnosis of walking pneumonia, has finished first 3 days worth (40mg daily), and was about to start 3 days x 30 mg, then 3 days x 20mg. Currently asymptomatic. 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 Denies T/E/D ED course: CBC within normal limits with the exception of leukocytosis 19,000. Chemistry profile within normal limits, hCG negative. CT abdomen and pelvis with contrast shows several small bowel loops that are distended with fluid and gas. Subtle partial small bowel obstruction. No air, multiple anterior abdo jossie wall hernias, stable. Labs show: Lipase normal. Management: Given Toradol, Dilaudid and morphine. Fluids started. NG tube to be placed. Zofran. Allergies Allergy/AdvReac Type Severity Reaction Status Date / Time tamsulosin [From Flomax] Allergy Mild Unknown Verified 08/22/18 23:15 Home Medications Home Medications Medication Instructions Recorded Confirmed Type cholecalciferol (vitamin D3) 1,000 units PO QAM 05/11/18 08/22/18 History [Vitamin D3] cyanocobalamin (vitamin B-12) 1,000 mcg PO QAM 05/11/18 08/22/18 History [Vitamin B-12] metformin 1,000 mg PO BIDM 05/11/18 08/22/18 History gabapentin 800 mg PO TID 07/20/18 08/22/18 History albuterol sulfate 2 puff INHALATION Q4 PRN 08/22/18 08/22/18 History levonorgestrel-ethinyl estrad 1 tab PO DAILY 08/22/18 08/22/18 History [Stanislav (28)] meloxicam 15 mg PO DAILY 08/22/18 08/22/18 History prednisone 10 mg PO UD 08/22/18 08/22/18 History Past Med/Surg History Medical History SBO (small bowel obstruction) (Acute) Anemia Degenerative disc disease GERD (gastroesophageal reflux disease) Migraine Osteoarthritis Surgical History History of adenoidectomy History of bowel resection D/T SCAR TISSUE History of cardiac cath VERTIGO>OCTOBER 2017 (NO PROBLEMS) History of cholecystectomy History of colonoscopy History of esophagogastroduodenoscopy (EGD) Hx of cholecystectomy Family History Mother Family history of diabetes mellitus Social History Preferred Language: Lao Beliefs That Will Affect Care: None Current Living Situation: Family Feels Safe at Home: Yes Smoking Status: Never smoker Hx Alcohol Use: No Hx Substance Use: No Review of Systems All systems reviewed & are unremarkable except as noted in HPI & below Physical Exam Vital Signs (Past 24 Hours): Last Vital Signs Temp 36.7 C 08/22/18 21:24 Pulse 94 H 08/23/18 01:23 Resp 19 08/23/18 01:23 BP 108/78 08/23/18 01:23 Pulse Ox 98 08/23/18 01:23 Physical Exam: Vitals noted as above and within normal limits. at bedside. GENERAL: Awake, alert to person, place, and time, nontoxic-appearing, in no distress HENT: Normocephalic, atraumatic. . Mucus membranes appear moist. EYES: Normal conjunctiva. Sclera non-icteric. EOMI. NECK: Supple. Full range of motion. No JVD RESPIRATORY: Clear to auscultation. Normal work of breathing. CARDIAC: Regular rate, normal rhythm. Extremities warm and well perfused, 2+ radial pulses bilaterally; 2+ posterior tibialis pulses bilaterally. ABDOMEN: Soft, distended, 1 right upper quadrant and one left lower quadrant hernias palpated, nontender, approximately 9 cm in diameter. Moderate tenderness to palpation in left lower quadrant. Bowel sounds are normal. LOWER EXTREMITIES: Inspection of calves reveal equal size bilaterally. They are non-tender. No edema. No discoloration. NEURO: No focal gross focal motor deficits noted. Sensation in tact. CN II-XII grossly in tact. SKIN: Rash not present. No jaundice noted. Significant lesions not present. PSYCH: Appropriate mood and affect. Cooperative. Exam as done by Kary Larson MD, Electrical Assembly Technician. Results & Data Laboratory Results 08/22/18 08/22/18 08/22/18 Range/Units 22:15 22:15 22:15 WBC 19.72 H (4.8-10.8) K/uL RBC 5.08 (4.2-5.4) M/uL Hgb 15.4 (12.0-16.0) g/dL Hct 46.5 (37-47) % MCV 91.5 (80-100) fL MCH 30.3 (25-34) pg MCHC 33.1 (32-36) g/dL RDW Std Deviation 46.6 H (36.4-46.3) fL RDW Coeff of [place] 13.8 (11.5-14.5) % Plt Count 343 (130-400) K/uL MPV 10.6 H (7.4-10.4) fL Immature Gran % (Auto) 0.4 % Neut % (Auto) 82.0 % Lymph % (Auto) 10.3 % [place] % (Auto) 6.9 % Eos % (Auto) 0.3 % Baso % (Auto) 0.1 % Immature Gran # (Auto) 0.08 H (0.00-0.02) K/uL Neut # (Auto) 16.17 H (1.4-6.5) K/uL Lymph # (Auto) 2.03 (1.2-3.4) K/uL [place] # (Auto) 1.37 H (0.11-0.59) K/uL Eos # (Auto) 0.05 (0-0.5) K/uL Baso # (Auto) 0.02 (0-0.2) K/uL Sodium 138 (136-145) mmol/L Potassium 3.8 (3.5-5.1) mmol/L Chloride 103 (98-107) mmol/L Carbon Dioxide 28 (21-32) mmol/L Anion Gap 7.0 (3-11) BUN 18 (7-18) mg/dl Creatinine 0.98 (0.6-1.2) mg/dl Est Cr Clr Drug Dosing 118.1 ml/min Est GFR ( Amer) 81.9 Est GFR (Non-Af Amer) 70.7 BUN/Creatinine Ratio 18.9 (10-20) Glucose 94 (70-99) mg/dl Calcium 9.1 (8.5-10.1) mg/dl Total Bilirubin 0.4 (0.2-1) mg/dl AST 15 (15-37) U/L ALT 51 (12-78) U/L Alkaline Phosphatase 56 (45-117) U/L Total Protein 7.7 (6.4-8.2) gm/dl Albumin 3.6 (3.4-5.0) gm/dl Globulin 4.1 H (2.5-4.0) gm/dl Albumin/Globulin Ratio 0.9 (0.9-2) Lipase 226 (73-393) U/L HCG, Qual Negative (Negative) Supervising Physician Co-Signing Physician Notes Patient seen and examined, chart reviewed, case discussed with Dr. Larson and I agree with her assessment and plan as above. Briefly, patient is a 43yo morbidl y obese female with history of multiple abdominal hernias, s/p jacqueline/appy, s/p 5-6 SBOs with resection performed at [place] in the past presenting with partial SBO. Patient with abdominal pain, nausea. No BM x 2 days On exam she is afebrile, tachycardic otherwise HD stable Gen: appears uncomfortable, nausea, NGT just placed putting out thick material Skin: no rash HEENT: PERRL, MMM, neck supple Heart: +S1/S2, regular, tachycardic, distant heart sounds Lungs: CTA, no rales/rhonchi/wheezes Abd: +BS, soft, mildly tender with deep palpation, no rebound/guarding or peritoneal signs, non-distended, +hernias Ext: no edema labs and images reviewed. leukocytosis with WBCs=18. CT with no perforation/abscess/free fluid Assessment/Plan: 43yo female with history of multiple SBOs presents with partial SBO -Admit to med-surge -NGT to intermittent suction -Bowel rest, IVF, electrolyte management, pain and nausea control -Surgical consult -KUB in AM -Elevated WBC most likely secondary to steroid use - will continue to monitor with daily CBC -Remainder of plan as above Resident Activity Tracking Resident Involvement: Resident Care Provided Care Provided: Adult Hospital Medicine (1) Leukocytosis Leukocytosis type: unspecified Qualified Code(s): D72.829 - Elevated white blood cell count, unspecified
[2018-08-23] MEDS ORDERED: HYDROmorphone INJ 1 MG/ML SYRINGE IV STA (02:41)
[2018-08-23] MEDS ORDERED: HYDROmorphone INJ 1 MG/ML SYRINGE ONE (02:45)
[2018-08-23] MEDS ORDERED: PROCHLORPERAZINE 5 MG/ML 2 ML VIAL ONE (02:46)
[2018-08-23] MEDS ORDERED: ONDANSETRON INJ 2 MG/ML 2 ML VIAL IV PRN (03:29)
[2018-08-23] MEDS ORDERED: ALBUTEROL HFA 8 GM INHALER INH PRN (03:29)
[2018-08-23] MEDS ORDERED: PROCHLORPERAZINE 5 MG in SYRINGE 4 ML IV ONE (03:30)
[2018-08-23] MEDS: SODIUM CHLORIDE 0.9% 1000ML 1,000 ML IV SCH ×3 (04:10→23:44)
[2018-08-23 04:31] LABS: BUN Creatinine Ratio 22.8 (10-20); Calcium 8.3 mg/dl (8.5-10.1); Creatinine Clr Calc Pharmacy 107.9 ml/min; Est GFR (African American) 72.8; Est GFR (Non-African American) 62.8
--- NOTE | 2018-08-23 04:38 | Emergency Department Note ---
Entered by Aida Sanders acting as a scribe for Viki Frias DO ED Visit Note This case was signed out to me at change of shift awaiting results of a CT scan of the abdomen/pelvis. Radiology results as stated below per my review and the radiologist's interpretation: CT ABDOMEN & PELVIS With Contrast: The previously noted multiple anterior abdominal and pelvic wall hernias are similar in appearance and morphology when compared to examination dated 06/24/2018. There are several small bowel loops that are distended with fluid and gas which is slightly more prominent from previous exam. Differential consideration includes enteritis; however, a subtle partial small bowel obstruction is difficult to entirely exclude given this appearance. However, no single focal transition point is identified. No pneumoperitoneum. No significant free fluid. A small bowel follow-through or serial radiographic evaluation may be appropriate, as clinically indicated. Evaluation of the right anterolateral abdominal wall is somewhat limited by artifact from body habitus contacting the CT gantry. The liver, pancreas, spleen, adrenal glands and kidneys demonstrate no significant abnormality or interval change from previous exam. The bladder is unremarkable. Degenerative changes of the lumbar spine with a grade 1 anterolisthesis of L4 on L5. No acute osseous traumatic injury identified. Radiologist: Eric Cox MD Study ready at 00:02 and initial results transmitted at 00:43 I reviewed these results with the patient and her family. The patient was having increased nausea. She was given additional IV Zofran. She had an NG tube placed. I discussed the case with Dr. Maurice and she will evaluate the patient for further management. . : Leukocytosis Qualifiers: Leukocytosis type: unspecified Qualified Code(s): D72.829 - Elevated white blood cell count, unspecified The scribe's documentation has been prepared under my direction and personally reviewed by me in its entirety. I confirm that the note above accurately reflects all work, treatment, procedures, and medical decision making performed by me.
[2018-08-23] MEDS: HYDROmorphone INJ 0.5 MG/0.5 ML SYR IV PRN ×2 (06:27→15:54)
--- NOTE | 2018-08-23 06:54 | CT Scan Report ---
CT abd pelvis IV con only CLINICAL HISTORY: Lower abdominal pain. COMPARISON STUDY: June 24, 2018 TECHNIQUE: The patient was scanned in a dynamic helical fashion during intravenous administration of 94 cc of Optiray 320 A dose lowering technique was utilized adhering to the principles of ALARA. CT DOSE: 2496.29 mGy.cm FINDINGS: Lower chest: The heart is normal in size and configuration, without pericardial effusion. The lung ba ses and pleural spaces are clear. Liver: There are no focal hepatic masses. The serosal surface of the liver has a somewhat nodular con figuration similar to the preceding study. Early cirrhotic changes most be considered. The liver is e nlarged measuring 28 ecm. Gallbladder: Not visualized and presumed surgically absent Spleen: Normal in size and attenuation. Pancreas: Unremarkable. Adrenal glands: Unremarkable. Kidneys: There is symmetric renal cortical enhancement. The kidneys are normal in size without hydron ephrosis. Bowel: There are no transition zones to indicate a high-grade bowel obstruction. There are scattered fluid-filled small bowel loops. The findings are nonspecific and could indicate an enteritis. A low-g rade partial small bowel obstruction cannot be excluded with certainty. There are scattered colonic d iverticula. There is no acute diverticulitis. There are 2 large ventral hernias. The more superior he rnia contains colon. The more inferior hernia contains multiple small bowel loops. Portions the bowel are not visualized as they extend beyond the [id number] within the hernia sac. There are no findi ngs to indicate acute appendicitis. Peritoneum: There is no intraperitoneal free air or abdominal ascites. Vasculature: The abdominal aorta is normal in course and caliber. Adenopathy: None. Pelvic viscera: The bladder, and pelvic viscera are unremarkable. Skeletal structures: No destructive osseous lesions are seen. IMPRESSION: 1. No evidence of high-grade bowel obstruction. No evidence of free air 2. Multiple large bowel containing ventral hernias 3. No evidence of acute diverticulitis. No evidence of acute appendicitis 4. Hepatomegaly. Elevation right hemidiaphragm. 5. Nonspecific fluid-filled small bowel loops without evidence for discrete transition zone. The find ings could indicate enteritis, or less likely low-grade partial small bowel obstruction. Electronically signed by: Irineo Felder M.D. 08/23/2018 6:53 AM
[2018-08-23 07:09] LABS: Magnesium 1.7 mg/dl (1.8-2.4); Phosphorus 3.6 mg/dl (2.5-4.9)
--- NOTE | 2018-08-23 07:39 | XRay Report ---
KUB CLINICAL HISTORY: Small bowel obstruction. FINDINGS: 3 AP, portable, supine abdominal radiographs are correlated with abdominal CT dated 08/23/19 19. The examination is degraded by large body habitus. There is no radiographic evidence of bowel obs truction. No evidence of intraperitoneal free air is seen on these supine images. The liver is enlarg ed. There are no abnormal abdominal calcifications. The bony structures appear intact. Lumbosacral sp ondylosis is observed. IMPRESSION: There is no radiographic evidence of small bowel obstruction. Electronically signed by: Angelito Flores M.D. 08/23/2018 7:37 AM
--- NOTE | 2018-08-23 10:26 | Family Medicine Progress Note ---
Date of Service August 23, 2018 Assessment & Plan (1) Abdominal pain, diffuse: 43-year-old female with extensive hx of SBOs s/p small bowel resection a few years ago and current abdominal hernias currently admitted for a possible enteritis vs. possible partial SBO who presented with abdominal pain and nausea. Enteritis vs. Partial SBO -Pt afebrile with leukocytosis and tachycardia -NG tube in place, IV fluids for bowel rest for possible SBO -Pain control with IV Toradol and IV Dilaudid for severe pain -Zofran prn for nausea -KUB- No indication of SBO -Gen Surg consult -PENDING Leukocytosis -19, 000+. Given whole picture can be indicator of infection though pt afebrile -Of note pt also had recent steroid course 3 days worth of 40mg daily. Hx of Degenerative disk disease - cont to Hold gabapentin and meloxicam Morbid obesity -BMI of 65. On metformin solely for treatment. -will continue to hold SCD IVF, NPO (2) Leukocytosis: (3) Hx SBO: (4) Morbidly obese: (5) Disc disease, degenerative, lumbar or lumbosacral: Supervising Physician Co-Signing Physician Notes Resident Physician Supervision Note: I independently interviewed and examined the patient and verified the colmenares history and physical, reviewed labs and image studies, discussed the case with the resident Dr. Delgado and agree with the findings and care plan. Subjective Pt states she is still nauseated, has not thrown up in the last 4 hours and her diffuse abdominal pain is lessening though significantly present. Feels like her heart is racing but denies chest pain. Review of Systems All systems reviewed & are unremarkable except as noted in HPI & below Physical Exam Vital Signs (Past 24 Hours): Last Vital Signs Temp 36.3 C L 08/23/18 07:45 Pulse 110 H 08/23/18 07:45 Resp 20 08/23/18 07:45 BP 120/80 08/23/18 09:38 Pulse Ox 93 08/23/18 07:45 General: Morbidly obese, laying flat in bed resting, NG tube in place HEENT: NC/AT, EOMI. Chest: Nontender to palpation. CV: RRR, decreased heart sounds but normal s1, s2. No murmurs appreciated Resp: Decreased breath sounds bilaterally, no increased effort of breathing. Abdomen: BS+. Soft, diffusely tender, distended in areas due to hernias. No guarding. Extremities: No edema. Results & Data Laboratory Results Laboratory Results - last 24 hr 08/22/18 08/22/18 08/22/18 22:15 22:15 22:15 WBC 19.72 H RBC 5.08 Hgb 15.4 Hct 46.5 MCV 91.5 MCH 30.3 MCHC 33.1 RDW Std Deviation 46.6 H RDW Coeff of [place] 13.8 Plt Count 343 MPV 10.6 H Immature Gran % (Auto) 0.4 Neut % (Auto) 82.0 Lymph % (Auto) 10.3 [place] % (Auto) 6.9 Eos % (Auto) 0.3 Baso % (Auto) 0.1 Immature Gran # (Auto) 0.08 H Neut # (Auto) 16.17 H Lymph # (Auto) 2.03 [place] # (Auto) 1.37 H Eos # (Auto) 0.05 Baso # (Auto) 0.02 Sodium 138 Potassium 3.8 Chloride 103 Carbon Dioxide 28 Anion Gap 7.0 BUN 18 Creatinine 0.98 Est Cr Clr Drug Dosing 118.1 Est GFR ( Amer) 81.9 Est GFR (Non-Af Amer) 70.7 BUN/Creatinine Ratio 18.9 Glucose 94 Calcium 9.1 Phosphorus Magnesium Total Bilirubin 0.4 AST 15 ALT 51 Alkaline Phosphatase 56 Total Protein 7.7 Albumin 3.6 Globulin 4.1 H Albumin/Globulin Ratio 0.9 Lipase 226 HCG, Qual Negative 08/23/18 08/23/18 03:43 03:43 WBC RBC Hgb Hct MCV MCH MCHC RDW Std Deviation RDW Coeff of [place] Plt Count MPV Immature Gran % (Auto) Neut % (Auto) Lymph % (Auto) [place] % (Auto) Eos % (Auto) Baso % (Auto) Immature Gran # (Auto) Neut # (Auto) Lymph # (Auto) [place] # (Auto) Eos # (Auto) Baso # (Auto) Sodium 137 Potassium 4.0 Chloride 103 Carbon Dioxide 27 Anion Gap 7.0 BUN 25 H Creatinine 1.08 Est Cr Clr Drug Dosing 107.9 Est GFR ( Amer) 72.8 Est GFR (Non-Af Amer) 62.8 BUN/Creatinine Ratio 22.8 H Glucose 131 H Calcium 8.3 L Phosphorus 3.6 Magnesium 1.7 L Total Bilirubin AST ALT Alkaline Phosphatase Total Protein Albumin Globulin Albumin/Globulin Ratio Lipase HCG, Qual Medications Administered Home Medications cholecalciferol (vitamin D3) [Vitamin D3] 1,000 units PO QAM 05/11/18 [History Confirmed 08/22/18] cyanocobalamin (vitamin B-12) [Vitamin B-12] 1,000 mcg PO QAM 05/11/18 [History Confirmed 08/22/18] metformin 1,000 mg PO BIDM 05/11/18 [History Confirmed 08/22/18] gabapentin 800 mg PO TID 07/20/18 [History Confirmed 08/22/18] albuterol sulfate 2 puff INHALATION Q4 PRN 08/22/18 [History Confirmed 08/22/18] levonorgestrel-ethinyl estrad [Marlissa (28)] 1 tab PO DAILY 08/22/18 [History Confirmed 08/22/18] meloxicam 15 mg PO DAILY 08/22/18 [History Confirmed 08/22/18] prednisone 10 mg PO UD 08/22/18 [History Confirmed 08/22/18] Active Medications Albuterol (Ventolin Hfa) 2 puffs INH Q4 PRN PRN Reason: Shortness Of Breath Or Wheezing Stop: 09/22/18 03:28 Hydromorphone HCl (Dilaudid) 0.5 mg IV Q4H PRN PRN Reason: Pain Stop: 09/06/18 03:28 Last Admin: 08/23/18 06:27 Dose: 0.5 mg Documented by: Sodium Chloride (Nss 1000ml) 1,000 mls @ 100 mls/hr IV .Q10H KHADRA Stop: 09/22/18 03:44 Last Admin: 08/23/18 04:10 Dose: 100 mls/hr Documented by: Ketorolac Tromethamine (Toradol) 15 mg IV Q6H PRN PRN Reason: Pain Stop: 08/28/18 03:28 Ondansetron HCl (Zofran) 4 mg IV Q4H PRN PRN Reason: Nausea Stop: 09/22/18 03:28 Last Admin: 08/23/18 05:29 Dose: 4 mg Documented by: Resident Activity Tracking Resident Involvement: Resident Care Provided Care Provided: Adult Hospital Medicine (1) Leukocytosis Leukocytosis type: unspecified Qualified Code(s): D72.829 - Elevated white blood cell count, unspecified
[2018-08-23 11:06] LABS: Appearance Urine Clear (Clear); Bilirubin Urine Negative (Negative); Blood Urine Negative (Negative); Color Urine Dark Yellow; Glucose Urine UA Negative (Negative); Ketones Urine Negative (Negative); Leukocyte Esterase Urine Negative (Negative); Nitrite Urine Negative (Negative); Protein Urine Negative (Negative); Specific Gravity Urine > 1.045 (1.000-1.030); Urobilinogen Urine Negative (Negative)
--- NOTE | 2018-08-23 11:11 | Surgery Consultation ---
Date of Consultation August 23, 2018 Assessment & Plan (1) Abdominal pain, diffuse: This patient had abdominal pain with nausea and vomiting. The CAT scan showed minimal evidence of dilated small bowel consistent with may be a partial small bowel obstruction. KUB this morning showed no evidence of bowel obstruction. She has not passed flatus or bowel movement however. I would continue with the NG tube for now. Hopefully she will begin to have peristalsis and bowels will begin to move. There is no evidence of peritonitis at the present time. We will continue with conservative measures. Present on Admission?: Yes History of Present Illness Reason for Consultation: Partial small bowel obstruction Requesting Physician: Rosalinda Bernard MD Attending Physician: Rosalinda Bernard MD History of Present Illness I been asked by Dr. Bernard to see this 43-year-old female who presented to the emergency room with a complaint of abdominal pain with nausea and vomiting. The abdominal pain began yesterday morning. It was centralized in her abdomen above the umbilicus. She is morbidly obese. She has had bowel obstructions at least 6 times in the past. It required a laparotomy with lysis of adhesions and partial small bowel resection back in 2014. Her most recent visit to the hospital was in January 2018. An NG tube was placed. It required advancement but after that there was drainage of about 300 cc of material in her nausea has now resolved. She has not passed flatus or had a bowel movement. She had no hematemesis. She denies fever and chills. She had a CT scan of the abdomen pelvis that demonstrated the following: There are no transition zones to indicate a high-grade bowel obstruction. There are scattered fluid-filled small bowel loops. The findings are nonspecific and could indicate an enteritis. A low-grade partial small bowel obstruction cannot be excluded with certainty. There are scattered colonic diverticula. There is no acute diverticulitis. There are 2 large ventral hernias. The more superior hernia contains colon. The more inferior hernia contains multiple small bowel loops. Portions the bowel are not visualized as they extend beyond the [id number] within the hernia sac. There are no findings to indicate acute appendicitis. Allergies Allergy/AdvReac Type Severity Reaction Status Date / Time tamsulosin [From Flomax] Allergy Mild Unknown Verified 08/22/18 23:15 Home Medications Home Medications Medication Instructions Recorded Confirmed Type cholecalciferol (vitamin D3) 1,000 units PO QAM 05/11/18 08/22/18 History [Vitamin D3] cyanocobalamin (vitamin B-12) 1,000 mcg PO QAM 05/11/18 08/22/18 History [Vitamin B-12] metformin 1,000 mg PO BIDM 05/11/18 08/22/18 History gabapentin 800 mg PO TID 07/20/18 08/22/18 History albuterol sulfate 2 puff INHALATION Q4 PRN 08/22/18 08/22/18 History levonorgestrel-ethinyl estrad 1 tab PO DAILY 08/22/18 08/22/18 History [Radhalimarka (28)] meloxicam 15 mg PO DAILY 08/22/18 08/22/18 History prednisone 10 mg PO UD 08/22/18 08/22/18 History Patient History Medical History SBO (small bowel obstruction) (Acute) Anemia Degenerative disc disease GERD (gastroesophageal reflux disease) Migraine Osteoarthritis Surgical History History of appendectomy Removed during bowel resection surgery History of adenoidectomy History of bowel resection D/T SCAR TISSUE History of cardiac cath VERTIGO>OCTOBER 2017 (NO PROBLEMS) History of cholecystectomy History of colonoscopy History of esophagogastroduodenoscopy (EGD) Hx of cholecystectomy Family History Mother Family history of diabetes mellitus Social History Preferred Language: Kiswahili Communication Ability: Effective Candy Dipper Required: No Beliefs That Will Affect Care: None Current Living Situation: Spouse Other Information That Helps Us Care for You: No Feels Safe at Home: Yes Smoking Status: Never smoker Hx Alcohol Use: No Hx Substance Use: No Review of Systems Respiratory: no cough and no dyspnea Cardiovascular: no chest pain Gastrointestinal: as per Subjective / HPI Genitourinary (Female): no dysuria and no hematuria Physical Exam Vital Signs (Past 24 Hours): Last Vital Signs Temp 36.3 C L 08/23/18 07:45 Pulse 110 H 08/23/18 07:45 Resp 20 08/23/18 07:45 BP 120/80 08/23/18 09:38 Pulse Ox 93 08/23/18 07:45 Constitutional: + obese (Morbidly); no acute distress Neck: trachea midline, no thyromegaly Respiratory: normal respiratory effort, lungs clear to auscultation Cardiovascular: Rate/Rhythm: regular rate and regular rhythm Gastrointestinal (Abdomen): Inspection/Auscultation: + abdominal surgical scar (Vertical midline beneath which there are hernias that can be palpated. They are mildly tender but are reducible.) Percussion/Palpation: abdomen soft Skin: no rashes, warm and dry Results & Data Laboratory Results 08/23/18 08/23/18 08/23/18 Range/Units 10:40 03:43 03:43 WBC (4.8-10.8) K/uL RBC (4.2-5.4) M/uL Hgb (12.0-16.0) g/dL Hct (37-47) % MCV (80-100) fL MCH (25-34) pg MCHC (32-36) g/dL RDW Std Deviation (36.4-46.3) fL RDW Coeff of [place] (11.5-14.5) % Plt Count (130-400) K/uL MPV (7.4-10.4) fL Immature Gran % (Auto) % Neut % (Auto) % Lymph % (Auto) % [place] % (Auto) % Eos % (Auto) % Baso % (Auto) % Immature Gran # (Auto) (0.00-0.02) K/uL Neut # (Auto) (1.4-6.5) K/uL Lymph # (Auto) (1.2-3.4) K/uL [place] # (Auto) (0.11-0.59) K/uL Eos # (Auto) (0-0.5) K/uL Baso # (Auto) (0-0.2) K/uL Sodium 137 (136-145) mmol/L Potassium 4.0 (3.5-5.1) mmol/L Chloride 103 (98-107) mmol/L Carbon Dioxide 27 (21-32) mmol/L Anion Gap 7.0 (3-11) BUN 25 H (7-18) mg/dl Creatinine 1.08 (0.6-1.2) mg/dl Est Cr Clr Drug Dosing 107.9 ml/min Est GFR ( Amer) 72.8 Est GFR (Non-Af Amer) 62.8 BUN/Creatinine Ratio 22.8 H (10-20) Glucose 131 H (70-99) mg/dl Calcium 8.3 L (8.5-10.1) mg/dl Phosphorus 3.6 (2.5-4.9) mg/dl Magnesium 1.7 L (1.8-2.4) mg/dl Total Bilirubin (0.2-1) mg/dl AST (15-37) U/L ALT (12-78) U/L Alkaline Phosphatase (45-117) U/L Total Protein (6.4-8.2) gm/dl Albumin (3.4-5.0) gm/dl Globulin (2.5-4.0) gm/dl Albumin/Globulin Ratio (0.9-2) Lipase (73-393) U/L HCG, Qual (Negative) Urine Color Dark Yellow Urine Appearance Clear (Clear) Urine pH 5.0 (4.5-7.5) Ur Specific [place] > 1.045 H (1.000-1.030) Urine Protein Negative (Negative) Urine Glucose (UA) Negative (Negative) Urine Ketones Negative (Negative) Urine Blood Negative (Negative) Urine Nitrite Negative (Negative) Urine Bilirubin Negative (Negative) Urine Urobilinogen Negative (Negative) Ur Leukocyte Esterase Negative (Negative) 08/22/18 08/22/18 08/22/18 Range/Units 22:15 22:15 22:15 WBC 19.72 H (4.8-10.8) K/uL RBC 5.08 (4.2-5.4) M/uL Hgb 15.4 (12.0-16.0) g/dL Hct 46.5 (37-47) % MCV 91.5 (80-100) fL MCH 30.3 (25-34) pg MCHC 33.1 (32-36) g/dL RDW Std Deviation 46.6 H (36.4-46.3) fL RDW Coeff of [place] 13.8 (11.5-14.5) % Plt Count 343 (130-400) K/uL MPV 10.6 H (7.4-10.4) fL Immature Gran % (Auto) 0.4 % Neut % (Auto) 82.0 % Lymph % (Auto) 10.3 % [place] % (Auto) 6.9 % Eos % (Auto) 0.3 % Baso % (Auto) 0.1 % Immature Gran # (Auto) 0.08 H (0.00-0.02) K/uL Neut # (Auto) 16.17 H (1.4-6.5) K/uL Lymph # (Auto) 2.03 (1.2-3.4) K/uL [place] # (Auto) 1.37 H (0.11-0.59) K/uL Eos # (Auto) 0.05 (0-0.5) K/uL Baso # (Auto) 0.02 (0-0.2) K/uL Sodium 138 (136-145) mmol/L Potassium 3.8 (3.5-5.1) mmol/L Chloride 103 (98-107) mmol/L Carbon Dioxide 28 (21-32) mmol/L Anion Gap 7.0 (3-11) BUN 18 (7-18) mg/dl Creatinine 0.98 (0.6-1.2) mg/dl Est Cr Clr Drug Dosing 118.1 ml/min Est GFR ( Amer) 81.9 Est GFR (Non-Af Amer) 70.7 BUN/Creatinine Ratio 18.9 (10-20) Glucose 94 (70-99) mg/dl Calcium 9.1 (8.5-10.1) mg/dl Phosphorus (2.5-4.9) mg/dl Magnesium (1.8-2.4) mg/dl Total Bilirubin 0.4 (0.2-1) mg/dl AST 15 (15-37) U/L ALT 51 (12-78) U/L Alkaline Phosphatase 56 (45-117) U/L Total Protein 7.7 (6.4-8.2) gm/dl Albumin 3.6 (3.4-5.0) gm/dl Globulin 4.1 H (2.5-4.0) gm/dl Albumin/Globulin Ratio 0.9 (0.9-2) Lipase 226 (73-393) U/L HCG, Qual Negative (Negative) Urine Color Urine Appearance (Clear) Urine pH (4.5-7.5) Ur Specific [place] (1.000-1.030) Urine Protein (Negative) Urine Glucose (UA) (Negative) Urine Ketones (Negative) Urine Blood (Negative) Urine Nitrite (Negative) Urine Bilirubin (Negative) Urine Urobilinogen (Negative) Ur Leukocyte Esterase (Negative) Diagnostic Findings CT abd pelvis IV con only (08/22) CLINICAL HISTORY: Lower abdominal pain. COMPARISON STUDY: June 24, 2018 TECHNIQUE: The patient was scanned in a dynamic helical fashion during intravenous administration of 94 cc of Optiray 320 A dose lowering technique was utilized adhering to the principles of ALARA. CT DOSE: 2496.29 mGy.cm FINDINGS: Lower chest: The heart is normal in size and configuration, without pericardial effusion. The lung bases and pleural spaces are clear. Liver: There are no focal hepatic masses. The serosal surface of the liver has a somewhat nodular configuration similar to the preceding study. Early cirrhotic changes most be considered. The liver is enlarged measuring 28 ecm. Gallbladder: Not visualized and presumed surgically absent Spleen: Normal in size and attenuation. Pancreas: Unremarkable. Adrenal glands: Unremarkable. Kidneys: There is symmetric renal cortical enhancement. The kidneys are normal in size without hydronephrosis. Bowel: There are no transition zones to indicate a high-grade bowel obstruction. There are scattered fluid-filled small bowel loops. The findings are nonspecific and could indicate an enteritis. A low-grade partial small bowel obstruction cannot be excluded with certainty. There are scattered colonic diverticula. There is no acute diverticulitis. There are 2 large ventral hernias. The more superior hernia contains colon. The more inferior hernia contains multiple small bowel loops. Portions the bowel are not visualized as they extend beyond the [id number] within the hernia sac. There are no findings to indicate acute appendicitis. Peritoneum: There is no intraperitoneal free air or abdominal ascites. Vasculature: The abdominal aorta is normal in course and caliber. Adenopathy: None. Pelvic viscera: The bladder, and pelvic viscera are unremarkable. Skeletal structures: No destructive osseous lesions are seen. IMPRESSION: 1. No evidence of high-grade bowel obstruction. No evidence of free air 2. Multiple large bowel containing ventral hernias 3. No evidence of acute diverticulitis. No evidence of acute appendicitis 4. Hepatomegaly. Elevation right hemidiaphragm. 5. Nonspecific fluid-filled small bowel loops without evidence for discrete transition zone. The findings could indicate enteritis, or less likely low-grade partial small bowel obstruction. KUB (08/23) CLINICAL HISTORY: Small bowel obstruction. FINDINGS: 3 AP, portable, supine abdominal radiographs are correlated with abdominal CT dated 08/22/2018. The examination is degraded by large body habitus. There is no radiographic evidence of bowel obstruction. No evidence of intraperitoneal free air is seen on these supine images. The liver is enlarged. There are no abnormal abdominal calcifications. The bony structures appear intact. Lumbosacral spondylosis is observed. IMPRESSION: There is no radiographic evidence of small bowel obstruction.
[2018-08-23] MEDS: KETOROLAC TROMETHAMINE 15 MG/ML VIAL IV PRN ×2 (11:21→23:36)
[2018-08-24 09:29] LABS: Basophils # (auto) 0.01 K/uL (0-0.2); Basophils % (auto) 0.1 %; Eosinophils # (auto) 0.15 K/uL (0-0.5); Eosinophils % (auto) 2.2 %; Hematocrit (blood only) 42.7 % (37-47); Hemoglobin 13.9 g/dL (12.0-16.0); Immature Granulocytes # (auto) 0.01 K/uL (0.00-0.02); Immature Granulocytes % (auto) 0.1 %; Lymphocytes # (auto) 1.03 K/uL (1.2-3.4); Lymphocytes % (auto) 15.1 %; Mean Corpuscular Hgb Conc 32.6 g/dL (32-36); Mean Corpuscular Volume 93.2 fL (80-100); Mean Platelet Volume 10.5 fL (7.4-10.4); Monocytes # (auto) 0.44 K/uL (0.11-0.59); Monocytes % (auto) 6.5 %; Neutrophils # (auto) 5.18 K/uL (1.4-6.5); Platelet Count 221 K/uL (130-400); RDW Standard Deviation 47.3 fL (36.4-46.3); Red Blood Count 4.58 M/uL (4.2-5.4); White Blood Count 6.82 K/uL (4.8-10.8)
[2018-08-24] MEDS: SODIUM CHLORIDE 0.9% 1000ML 1,000 ML IV SCH (09:31)
--- NOTE | 2018-08-24 09:37 | Surgery Progress Note ---
Date of Service August 24, 2018 Assessment & Plan (1) Abdominal pain, diffuse: Patient feels much better today Peristalsis has returned and bowels are moving Will advance to full liquid diet today Encourage ambulation Present on Admission?: Yes Subjective Feels much better today Denies nausea and vomiting Had large liquid bowel movement Appetite is returning Physical Exam Vital Signs (Past 24 Hours): Last Vital Signs Temp 36.8 C 08/24/18 07:18 Pulse 73 08/24/18 07:18 Resp 16 08/24/18 07:18 BP 98/62 L 08/24/18 07:18 Pulse Ox 97 08/24/18 07:18 Gastrointestinal (Abdomen): Inspection/Auscultation: normal bowel sounds; abdomen not distended Percussion/Palpation: abdomen soft; abdomen nontender
[2018-08-24 09:54] LABS: Albumin Level 2.7 gm/dl (3.4-5.0); BUN Creatinine Ratio 24.4 (10-20); Calcium 7.6 mg/dl (8.5-10.1); Creatinine Clr Calc Pharmacy 140.4 ml/min; Est GFR (African American) 100.1; Est GFR (Non-African American) 86.4; Potassium 3.6 mmol/L (3.5-5.1)
[2018-08-24 09:59] LABS: Albumin Globulin Ratio 0.8 (0.9-2); Bilirubin,Total 0.6 mg/dl (0.2-1); Globulin 3.4 gm/dl (2.5-4.0); Total Protein 6.1 gm/dl (6.4-8.2)
--- NOTE | 2018-08-24 10:34 | Discharge Summary ---
Date of Service August 24, 2018 Admission HPI Per Admitting Provider 43-year-old female who presents with acute abdominal pain associated with nausea. She says she ate at 5 PM and the pain started at 7:30 PM. Last bowel movement was 2 days ago. Denies any urinary symptoms. Pain was 9 out of 10 when she presented to the emergency room. She has past medical history significant for frequent small bowel obstructions she says about 5 in the last 5 years. She has had a small bowel resection for this reason in the past but has had other instances not requiring surgical intervention. Of note she says she is currently taking prednisone for a diagnosis of walking pneumonia, has fini shed first 3 days worth (40mg daily), and was about to start 3 days x 30 mg, then 3 days x 20mg. Currently asymptomatic. 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 Denies T/E/D ED course: CBC within normal limits with the exception of leukocytosis 19,000. Chemistry profile within normal limits, hCG negative. CT abdomen and pelvis with contrast shows several small bowel loops that are distended with fluid and gas. Subtle partial small bowel obstruction. No air, multiple anterior abdominal wall hernias, stable. Labs show: Lipase normal. Management: Given Toradol, Dilaudid and morphine. Fluids started. NG tube to be placed. Zofran. Admission Exam Per Admitting Provider Vitals noted as above and within normal limits. at bedside. GENERAL: Awake, alert to person, place, and time, nontoxic-appearing, in no distress HENT: Normocephalic, atraumatic. . Mucus membranes appear moist. EYES: Normal conjunctiva. Sclera non-icteric. EOMI. NECK: Supple. Full range of motion. No JVD RESPIRATORY: Clear to auscultation. Normal work of breathing. CARDIAC: Regular rate, normal rhythm. Extremities warm and well perfused, 2+ radial pulses bilaterally; 2+ posterior tibialis pulses bilaterally. ABDOMEN: Soft, distended, 1 right upper quadrant and one left lower quadrant hernias palpated, nontender, approximately 9 cm in diameter. Moderate tenderness to palpation in left lower quadrant. Bowel sounds are normal. LOWER EXTREMITIES: Inspection of calves reveal equal size bilaterally. They are non-tender. No edema. No discoloration. NEURO: No focal gross focal motor deficits noted. Sensation in tact. CN II-XII grossly in tact. SKIN: Rash not present. No jaundice noted. Significant lesions not present. PSYCH: Appropriate mood and affect. Cooperative. Exam as done by Kary Larson MD, Licensing And Registration Director. Principal Diagnosis Partial Small Bowel Obstruction Discharge Exam General: Morbidly obese, laying flat in bed resting. HEENT: NC/AT, EOMI. Chest: Nontender to palpation. CV: RRR, decreased heart sounds but normal s1, s2. No murmurs appreciated Resp: Decreased breath sounds bilaterally, no increased effort of breathing. Abdomen: BS+. Soft, nontender, distended in areas due to hernias. No guarding. Extremities: No edema. Discharge Data Allergies Allergy/AdvReac Type Severity Reaction Status Date / Time tamsulosin [From Flomax] Allergy Mild Unknown Verified 08/22/18 23:15 Consultations 08/23/18 01:18 ED Decision to Admit Stat 08/23/18 03:29 Consult General Surgery Routine Ordered Studies 08/22/18 22:06 CT abd pelvis IV con only Urgent Hospital Course (1) Abdominal pain, diffuse: 43-year-old female with extensive hx of SBOs s/p small bowel resection a few years ago and current abdominal hernias currently admitted for a possible enteritis vs. possible partial SBO who presented with abdominal pain and nausea. Enteritis vs. Partial SBO -On admission - Pt was afebrile with leukocytosis and tachycardia. CT abdomen showed multiple abdominal hernias and stated a SBO could not be ruled out. KUB showed indication of SBO. NG tube was placed, IV fluids for bowel rest for possible SBO. Pain control with IV Toradol. Zofran as needed for nausea. General Surgery consult advised continued use of NG tube. Next day, improved. Upon discharge pt had had a bowel movement with resolution of her nausea and significant improvement of her diffuse abdominal pain and tolerated her diet. Leukocytosis -19, 000 upon presentation. Given whole picture can be indicator of infection though pt afebrile. Of note pt also had recent steroid course which included 3 days worth of 40mg daily before admission. Upon discharge, had RESOLVED with a WBC of 6.82. Hx of Degenerative disk disease - Gabapentin and meloxicam were held. Morbid obesity -BMI of 65. On metformin solely for treatment. Metformin was held while hospitalized. (2) Leukocytosis: (3) Hx SBO: (4) Morbidly obese: (5) Disc disease, degenerative, lumbar or lumbosacral: Total Time Total Time Spent Total Time Spent (In Minutes): 60 Discharge Plan Discharge Items Patient Disposition: Home - Self-Care Reason For Visit: SBO PARTIAL Discharge Diagnosis: Partial Small Bowel Obstruction Discharge Goals: Decrease discomfort, Improve disease control and Improve function Activity: Per 'Additional Instructions' section Non-emergency contact: Primary Care Provider Call non-emergency contact if: your symptoms worsen, your pain is worsening and you have a fever Follow-up/Referrals: Carmella Ortiz MD [Primary Care Provider] - 08/28/18 2:30 pm (Please, follow up with Dr. Ortiz on TuesdayAugust 28 at 2:30 pm. *If you need to change this appointment, call the office at [phone].) Diet: Regular Addtl Provider Instructions: You were treated while hospitalized for a partial small bowel obstruction. You received IV fluids, were told not to eat anything and a nasogastric tube was placed to give your bowels some rest and help with removal of the obstruction. You also received IV Zofran to help with your nausea, and you received as needed pain medication. Your nausea and abdominal pain improved and the nasogastric tube was eventually removed. You also had a bowel movement which was a great indicator that your bowels were now functioning as they should. Please follow-up with your primary care provider in the next week. Also, we would strongly advise followup for your abdominal hernias as well. Should your symptoms return or worsen, please present to the nearest emergency room. Prescriptions: Continued gabapentin 400 mg Capsule 800 mg PO TID RF: 0 meloxicam 15 mg tablet 15 mg PO DAILY RF: 0 albuterol sulfate 90 mcg/actuation HFA aerosol inhaler 2 puff Inhalation Q4 PRN (Reason: Shortness Of Breath Or Wheezing) RF: 0 levonorgestrel-ethinyl estrad [Marlissa (28)] 0.15-0.03 mg tablet 1 tab PO DAILY RF: 0 metformin 500 mg tablet 1,000 mg PO BIDM RF: 0 cyanocobalamin (vitamin B-12) [Vitamin B-12] 1,000 mcg Tablet 1,000 mcg PO QAM RF: 0 cholecalciferol (vitamin D3) [Vitamin D3] 1,000 unit Capsule 1,000 units PO QAM RF: 0 Discontinued prednisone 10 mg tablet 10 mg PO UD RF: 0 Stand-Alone Forms: Call Back Authorization, [facility]/Other Patient Handouts: Obstruction Sm Bowel Discharge Orders: Discharge Order (Routine); Ordered 08/24/18 Ordered By: Nain Casillas Admission Data Admit Date/Time: 08/23/18 02:40 Attending Provider: Rosalinda Bernard Admit Provider: Kary Larson Primary Care Provider: Carmella Ortiz Other Providers: Nain Olson Service: Medical Other Interventions: Discharge Summary Assessment (RN) Last Done: 08/24/18 13:46 DC Date/Time DO NOT enter until pt leaves facility: 08/24/18 14:20 Supervising Physician Co-Signing Physician Notes Resident Physician Supervision Note: I independently interviewed and examined the patient and verified the colmenares history and physical, reviewed labs and image studies, discussed the case with the resident Dr. Delgado and agree with the findings and care plan. Time spent in discharge 35 min Resident Activity Tracking Resident Involvement: Resident Care Provided Care Provided: Adult Hospital Medicine
--- NOTE | 2018-08-28 06:36 | Coding Query ---
CODING QUERY To promote full compliance with coding requirements relating to patient care, provider participation is requested in all cases of seed cleaning manager uncertainty. Please assist us with the question(s) below: Coding Question(s): There is documentation of Partial Small Bowel Obstruction and history of SBO's s/p small bowel resection a few years ago and documentation of Current Hernias with further documentation that there are 2 large ventral hernias. The more superior hernia contains colon. The more inferior hernia contains multiple small bowel loops. Please clarify below, in your clinical opinion, the likely source of the Partial Small Bowel Obstruction. ( ) Likely source of PSBO is the Current Hernias ( ) Likely source of PSBO is Other: Please Specify ( x ) Likely source of PSBO is Unknown Physician's Response(s): Please ask surgeon for further clarification. Thank you Nena Verma Principal Diagnosis: "that condition established after study, to be chiefly responsible for occasioning the admission of the patient to the hospital for care." Co-Existing Principal Diagnosis: "when two or more diagnoses equally meet the criteria for principal diagnosis as determined by the circumstances of admission, diagnostic work up, and/or therapy provided, and the Alphabetic Index, Tabular List, or another coding guideline does not provide sequencing direction, any one of the diagnoses may be sequenced first." "When the physician has documented what appears to be a current diagnosis in the body of the record, but has not included the diagnosis in the final diagnostic statement, the physician should be asked whether the diagnosis should be added." (Source Coding [facility] 2 QTR90. p3-4) BISI
== END 2018-08-24 14:20 | disposition home or self-care (01) | DRG 389 ==
LOC: ED 21:17 → SUATTDRO 08-23 02:40 → 3W 08-23 02:40

== ENCOUNTER 2021-06-03 16:37 | Observation (INO) ==
[2021-06-03] MEDS ORDERED: KETOROLAC TROMETHAMINE 15 MG/ML VIAL IV STA (19:04)
[2021-06-03] MEDS ORDERED: HYDROmorphone INJ 0.5 MG/0.5 ML SYR IV STA (19:04)
[2021-06-03] MEDS ORDERED: SODIUM CHLORIDE 0.9% 1000ML 1,000 ML IV STA (19:04)
[2021-06-03] MEDS ORDERED: ONDANSETRON INJ 2 MG/ML 2 ML VIAL IV STA (19:04)
[2021-06-03 19:55] LABS: Basophils # (auto) 0.02 K/uL (0-0.2); Basophils % (auto) 0.2 %; Eosinophils # (auto) 0.16 K/uL (0-0.5); Eosinophils % (auto) 1.6 %; Hematocrit (blood only) 41.8 % (37-47); Hemoglobin 13.2 g/dL (12.0-16.0); Immature Granulocytes # (auto) 0.01 K/uL (0.00-0.02); Immature Granulocytes % (auto) 0.1 %; Lymphocytes # (auto) 1.41 K/uL (1.2-3.4); Lymphocytes % (auto) 14.5 %; Mean Corpuscular Hemoglobin 28.9 pg (25-34); Mean Corpuscular Hgb Conc 31.6 g/dL (32-36); Mean Corpuscular Volume 91.5 fL (80-100); Mean Platelet Volume 10.5 fL (7.4-10.4); Monocytes # (auto) 0.59 K/uL (0.11-0.59); Monocytes % (auto) 6.1 %; Neutrophils # (auto) 7.53 K/uL (1.4-6.5); Neutrophils % (auto) 77.5 %; Platelet Count 399 K/uL (130-400); RDW Coefficient of Variation 14.3 % (11.5-14.5); RDW Standard Deviation 48.3 fL (36.4-46.3); Red Blood Count 4.57 M/uL (4.2-5.4); White Blood Count 9.72 K/uL (4.8-10.8)
--- NOTE | 2021-06-03 20:03 | XRay Report ---
KUB HISTORY: Acute left-sided flank pain L flank pain, stone on CT COMPARISON: CT abdomen and pelvis 05/28/2021 and 05/25/2021. FINDINGS: Limited exam secondary to patient body habitus. Surgical suture material related to gastric bypass. Unchanged right hemidiaphragmatic elevation. Moderate fecal retention. Renal shadows are ob scured by bowel gas. 5 mm right renal calculus redemonstrated. The patient's known left nephrolithias is is not identified. 4 mm calculus of the left ureter is noted at the level of L3-L4, not significan tly changed in positioning from prior studies. No pneumoperitoneum or pneumatosis. Degenerative [place] es of the spine, pelvis and hips. Mid lumbar dextroscoliosis. No fracture. IMPRESSION: 1. Unchanged positioning of the 4 mm left ureteral calculus at the level of L4. 2. Right nephrolithiasis redemonstrated. 3. Limited study secondary to patient body habitus and obscuring bowel gas. ACT 112: Negative or not required by law. The above report was generated using voice recognition software. It may contain grammatical, syntax o r spelling errors. Electronically signed by: Michael Abebe M.D. 06/03/2021 8:02 PM
[2021-06-03 20:12] LABS: BUN Creatinine Ratio 7.6 (10-20); Blood Urea Nitrogen 11 mg/dl (7-18); Calcium 8.5 mg/dl (8.5-10.1); Carbon Dioxide 27 mmol/L (21-32); Chloride 108 mmol/L (98-107); Est GFR (African American) 51.1 ml/min; Est GFR (Non-African American) 44.1 ml/min; Glucose 93 mg/dl (70-99); Potassium 4.4 mmol/L (3.5-5.1); Sodium 140 mmol/L (136-145)
[2021-06-03 20:26] LABS: Albumin Level 2.8 gm/dl (3.4-5.0); Alkaline Phosphatase 90 U/L (45-117); Lipase 108 U/L (73-393); Total Protein 7.4 gm/dl (6.4-8.2)
[2021-06-03 20:49] LABS: Alanine Aminotransferase 26 (12-78); Aspartate Aminotransferase 25 U/L (15-37)
--- NOTE | 2021-06-03 21:37 | History & Physical Report ---
Date of Service June 03, 2021 Assessment & Plan (1) Renal colic on left side: Plan: Due to the patient's ongoing symptoms she will be admitted to the hospital proceeding as follows: �We will provide IV fluid for hydration in hopes that this will help her pass the kidney stone �Analgesics will be provided �Antiemetics will be provided �Daily would place her on Flomax for maximum expulsive therapy however the patient has an allergy to this and this will not be administered (the patient says this medication causes facial swelling) �We will await results of urinalysis and urine culture to determine if patient will require additional antibiotics �We will strain her urine and save any kidney stones for appropriate analysis �We will follow serial labs �We will avoid nephrotoxins as patient is noted to have acute kidney injury �Urology consultation will be requested We will use SCDs for DVT prevention, no chemical means in case cystoscopy is required I did discuss CODE STATUS with this patient and she notes an event of cardiopulmonary rest she wishes to be a level 1 full code History of Present Illness Chief Complaint: "I am having pain from a kidney stone" Primary Care Provider: Carmella Ortiz MD This a 45-year-old female who presents [facility] secondary to ongoing left flank pain. Patient notes that she was in her usual state of health until approximately May 25 of this year when she developed some left-sided flank pain. She notes that the pain in addition to being in the left flank radiates to the front of her abdomen into her left groin somewhat. She denies any hematuria but does note some dysuria along with urinary frequency. In addition she has had nausea vomiting with limited oral intake. She denies any fevers, shakes, chills. Patient denies any shortness of breath or chest pain. She does note a past history of kidney stones but has never required any cystoscopy or lithotripsy and has always been able to pass the stones on her own. Patient initially presented to [facility] emergency department on 05/25/2021. On this date patient had a CT scan of the abdomen and pelvis that showed an obstructive stone in the proximal ureter measuring 4 mm. There was some associated left hydronephrosis noted on the study. On this date the patient had a CBC where her white blood cell count was elevated 18.5. Her hemoglobin, hematocrit, and platelet count were noted to be within normal range. A chemistry profile in the states showed her sodium and potassium were both normal. Her BUN and creatinine were also noted to be normal at this time. Urinalysis on this date showed 1+ blood and was negative for nitrite. She was noted to have 10-30 white blood cells per high-power field and 1+ leukocyte esterase. Bacteria was negative. Urine culture from this date was reviewed and grew out lactobacillus. She can presented to [facility] emergency department on 05/28/2021. She had another CAT scan of the abdomen and pelvis which showed some persistent left hydronephrosis but there was no evidence of obstructing ureteral calculi, and was felt that this CAT scan finding represented the recent passage of a kidney stone. She was however noted to have a nonobstructing left upper pole renal stone. On this date the patient had a repeat CBC where her white blood cell count, hemoglobin, and hematocrit were normal. Her platelet count was 404K. Chemistry profile on this date showed sodium and potassium re main normal, as did her BUN and creatinine. Urinalysis on this date was negative for blood and nitrite. She was noted to have trace leukocyte esterase and only 5-10 white blood cells per high-power field. Bacteria was again noted to be negative. A urine culture on this date was not performed. Today in the emergency department the patient did have a KUB that showed a 4 mm left ureteral calculi at the level of L4. Laboratories today include a CBC were white blood cell count, hemoglobin, hematocrit, and platelet count are all within normal range. Chemistry profile today shows sodium and potassium remain normal. Her BUN is normal but her creatinine had a slight elevation to 1.4. Since arrival today the patient has been unable to produce a urine specimen. At the time of my interview the patient was sitting comfortably in a wheelchair. She was in no distress. Allergies Allergy/AdvReac Type Severity Reaction Status Date / Time tamsulosin [From Flomax] Allergy Severe angioedema Verified 06/01/21 08:02 Home Medications Medication Instructions Recorded Confirmed Type omeprazole 20 mg capsule,delayed 20 mg PO QAM 05/20/19 06/01/21 History release phytonadione (vitamin K1) 100 mcg 100 mcg PO QAM 08/03/19 06/01/21 History tablet levothyroxine 25 mcg tablet 25 mcg PO DAILY #30 tab 09/29/20 06/03/21 Rx (Synthroid) sumatriptan succinate 100 mg tablet See Rx Instructions PO .COMPLEX 90 03/20/21 06/03/21 Rx Days #27 tab ondansetron 4 mg disintegrating 4 mg PO Q8H PRN #30 tab 03/23/21 06/03/21 Rx tablet gabapentin 800 mg tablet 800 mg PO TID #270 tab 03/24/21 06/03/21 Rx hydroxyzine HCl 25 mg tablet 25 mg PO HS #30 tab 05/18/21 06/03/21 Rx levonorgestrel 0.15 mg-ethinyl 1 tab PO QAM #84 tab 05/21/21 06/03/21 Rx estradiol 0.03 mg tablet (Saurabho (28)) vitamin A 10,000 unit capsule 10,000 unit PO DAILY 05/25/21 06/01/21 History vitamin E 400 unit capsule 400 unit PO QAM 05/25/21 06/01/21 History venlafaxine 150 mg 150 mg PO DAILY #30 cap 06/02/21 06/03/21 Rx capsule,extended release 24 hr escitalopram oxalate 20 mg tablet 20 mg PO DAILY 06/03/21 06/03/21 History cephalexin 500 mg capsule 500 mg PO BID 14 Days #10 cap 06/05/21 Rx oxycodone 10 mg tablet 10 mg PO BID PRN #10 tab 06/05/21 Rx Past Med/Surg History Medical History Abdominal pain Anemia Depression with anxiety Disc disease, degenerative, lumbar or lumbosacral GERD (gastroesophageal reflux disease) H/O female hirsutism History of small bowel obstruction Insomnia Leukocytosis Lumbar radiculopathy Osteoarthritis Syncope Surgical History History of adenoidectomy History of appendectomy Removed during bowel resection surgery History of bariatric surgery 05/14/2019 at [facility] [place], Dr. Young - Laproscopic converted to Open biliopancreatic diversion with duodenal switch History of bowel resection D/T SCAR TISSUE History of cardiac cath VERTIGO>OCTOBER 2017 (NO PROBLEMS) History of cholecystectomy History of colonoscopy History of esophagogastroduodenoscopy (EGD) Hx of cholecystectomy S/P biliopancreatic diversion with duodenal switch S/P gastric bypass Family History Mother Family history of diabetes mellitus Pancreatic cancer Aunt Breast cancer Denies family history of Ovarian cancer Prostate cancer Lung cancer Colorectal cancer Social History Smoking Status: Never smoker Second Hand Exposure: Yes (not in last 7years); Hx Alcohol Use: No Hx Substance Use: No Preferred Language: Macedonian Communication Ability: Effective Visual Impairment: No Limitations Hearing Ability: Normal Associate Art Director Required: No Beliefs That Will Affect Care: None marital status: Current Living Situation: Spouse current occupational status: employed current occupation: works at [email or web address] Feels Safe at Home: Yes Childhood Exposure to Second-Hand Smoke: Yes caffeine: No Dental Care, Regularly: Yes Physical Activity Frequency: 3-4 Times per Week Seatbelt Use: always Sunscreen Use: Yes Review of Systems Constitutional: no fever and no chills Eyes: no diplopia Ear, Nose, Mouth, Throat: no ear pain Respiratory: no cough and no dyspnea Cardiovascular: no chest pain Gastrointestinal: + nausea and + vomiting; no abdominal pain Genitourinary: + dysuria, + urinary frequency and + flank pain (Left-sided); no hematuria Musculoskeletal: + back pain (Left-sided flank pain) Integumentary: no rash Neurologic: no localized weakness Physical Exam Constitutional: well developed, well nourished and + obese; no acute distress Eyes: no conjunctival abnormality ENMT: Ears: no external ear abnormality Mouth: no oropharynx abnormality Neck: trachea midline Respiratory: normal respiratory effort, lungs clear to auscultation Cardiovascular: Rate/Rhythm: regular rate and regular rhythm Gastrointestinal (Abdomen): Soft, nondistended, nontender to palpation Musculoskeletal: No calf tenderness Skin: no rashes Neurologic: moves all extremities Psychiatric: A+Ox3, euthymic affect Genitourinary: + CVA tenderness (Left-sided with percussion) Results & Data Results & Data ([facility]) Vital Signs (Past 12 Hours) Vital Signs Temp Pulse Pulse Resp BP BP Pulse Ox 06/03/21 19:29 98 H 20 130/75 97 06/03/21 16:44 36.6 C 96 H 20 127/90 99 Supervising Physician Co-Signing Physician Notes Attending addendum: I have physically seen this patient, have supervised the KEITH's activities, and agree with the H&P unless as otherwise noted. Assessment and Plan: 4 mm left ureteral calculus- NPO IV fluids Follow urine culture and sensitivity Serial laboratories in a.m. Zofran 4 mg IV every 6 hours as needed Famotidine 20 mg IV every 12 hours Ceftriaxone 2 g IV daily Consult urology Remaining orders and notations as noted PG Care Time/CCT Total # of Minutes Spent Total Time Spent with Patient: Total time spent is greater than 50% in coordination of care (as documented) at patient's floor/unit and/or counseling patient: Coding Level of Care Code INT OBSERVATION CARE 70M LVL 3 Diagnoses Renal colic on left side N23
[2021-06-03] MEDS ORDERED: ACETAMINOPHEN 1,000 MG/100 ML VIAL IV PRN (21:52)
--- NOTE | 2021-06-03 21:56 | Urology Consultation ---
Date of Consultation June 03, 2021 Assessment & Plan (1) Kidney stone: Patient will be admitted on the hospitalist service. We will proceed as follows: �Provide analgesics �Provide antiemetics �Hydrate the patient with IV fluids �Unfortunately patient has an allergy to Flomax, for which she reports causes facial swelling, therefore this medication cannot be used to aid in expulsive therapy �Await results of urine analysis and urine culture and initiate or continue antibiotics as indicated �Recommend straining all urine to save any kidney stones for appropriate analysis �Recommend following serial labs �Recommend avoiding nephrotoxins due to noted acute kidney injury �Allow clear liquids for the present time but make her n.p.o. after midnight in the event that cystoscopy is required in the morning Additional recommendations be forthcoming based on her clinical course as it u nfolds History of Present Illness Reason for Consultation: Nephrolithiasis History of Present Illness This 45-year-old female presented to [facility] emergency department secondary to left flank pain that began on May 25 of this year. Patient says that the left flank pain does not have any modifying factors other than pain medicine has been administered during multiple visits to the emergency department. She said that the pain does radiate to the front of her abdomen to her left groin. She does report some dysuria along with urinary frequency but denies any hematuria. She reports associated nausea or vomiting but denies any fevers, shakes, chills. Patient does have a known history of kidney stones but notes that she is always been able to pass them on her own has not required any cystoscopy or lithotripsy procedures. Patient's first visit to the emergency department was on 05/25/2021 were patient had a CT scan of the abdomen pelvis that showed she had an obstructive stone in the proximal left ureter measuring 4 mm. She had associated hydronephrosis on the study. On this data CBC revealed her white blood cell count was elevated 18.5 however she was noted to have a normal hemoglobin, hematocrit, and platelet count. Chemistry profile showed that her electrolytes including her sodium and potassium were normal. BUN and creatinine were not elevated on this date. Urinalysis showed 1+ blood and was negative for nitrite. She was noted to have 10-30 white blood cells per high-power field and 1+ leukocyte Estrace. There is no bacteria noted on her urine specimen. Urine culture from this date grew out lactobacillus. The patient notes that she has been taking Keflex since this visit. On 05/28/2021 the patient represented to [facility] emergency department where a CAT scan showed persistent left hydronephrosis but there is no evidence of any obstructing ureteral calculi and this was felt to represent recent passage of a kidney stone. Patient was noted to have a nonobstructing left upper pole renal stone on the study. Repeat CBC showed her white blood cell count, hemoglobin and hematocrit were normal. Platelet count was 404K. Chemistry profile this day showed sodium and potassium were normal as were her BUN and creatinine. Urinalysis on this date was negative for bacteria and was she was only noted to have trace leukocyte Estrace and only 5-10 white blood cells per high-power field. Urine culture on this date was not performed Today in the emergency department the patient did have imaging in the form of a KUB that showed a 4 mm left ureteral calculi at the level of the fourth lumbar vertebrae. Laboratory studies include a CBC where her white blood cell count, hemoglobin, hematocrit, and platelet count were all normal. Chemistry profile showed her sodium potassium remain normal however her creatinine had a slight elevation to 1.4 with a normal BUN. No urine specimen has been obtained at this time. A Covid test has been ordered and is pending. At the time of my interview the patient was resting comfortably and she was in no distress. Allergies Allergy/AdvReac Type Severity Reaction Status Date / Time tamsulosin [From Flomax] Allergy Severe angioedema Verified 06/01/21 08:02 Home Medications Medication Instructions Recorded Confirmed Type omeprazole 20 mg capsule,delayed 20 mg PO QAM 05/20/19 06/01/21 History release phytonadione (vitamin K1) 100 mcg 100 mcg PO QAM 08/03/19 06/01/21 History tablet levothyroxine 25 mcg tablet 25 mcg PO DAILY #30 tab 09/29/20 06/03/21 Rx (Synthroid) sumatriptan succinate 100 mg tablet See Rx Instructions PO .COMPLEX 90 03/20/21 06/03/21 Rx Days #27 tab ondansetron 4 mg disintegrating 4 mg PO Q8H PRN #30 tab 03/23/21 06/03/21 Rx tablet gabapentin 800 mg tablet 800 mg PO TID #270 tab 03/24/21 06/03/21 Rx hydroxyzine HCl 25 mg tablet 25 mg PO HS #30 tab 05/18/21 06/03/21 Rx levonorgestrel 0.15 mg-ethinyl 1 tab PO QAM #84 tab 05/21/21 06/03/21 Rx estradiol 0.03 mg tablet (Kurvelo (28)) cephalexin 500 mg capsule 500 mg PO BID 14 Days #28 cap 05/25/21 06/03/21 Rx oxycodone-acetaminophen 5 mg-325 1 tab PO Q8H PRN #14 tab 05/25/21 06/01/21 Rx mg tablet (Percocet) vitamin A 10,000 unit capsule 10,000 unit PO DAILY 05/25/21 06/01/21 History vitamin E 400 unit capsule 400 unit PO QAM 05/25/21 06/01/21 History oxycodone 10 mg tablet 10 mg PO BID PRN #10 tab 05/29/21 06/03/21 Rx venlafaxine 150 mg 150 mg PO DAILY #30 cap 06/02/21 06/03/21 Rx capsule,extended release 24 hr escitalopram oxalate 20 mg tablet 20 mg PO DAILY 06/03/21 06/03/21 History Patient History Medical History Abdominal pain Anemia Depression with anxiety Disc disease, degenerative, lumbar or lumbosacral GERD (gastroesophageal reflux disease) H/O female hirsutism History of small bowel obstruction Insomnia Leukocytosis Lumbar radiculopathy Osteoarthritis Syncope Surgical History History of adenoidectomy History of appendectomy Removed during bowel resection surgery History of bariatric surgery 05[place]14/2019 [place] [facility] [place] - Laproscopic converted to Open biliopancreatic diversion with duodenal switch History of bowel resection D/T SCAR TISSUE History of cardiac cath VERTIGO>OCTOBER 2017 (NO PROBLEMS) History of cholecystectomy History of colonoscopy History of esophagogastroduodenoscopy (EGD) Hx of cholecystectomy S/P biliopancreatic diversion with duodenal switch S/P gastric bypass Family History Mother Family history of diabetes mellitus Pancreatic cancer Aunt Breast cancer Denies family history of Ovarian cancer Prostate cancer Lung cancer Colorectal cancer Social History Smoking Status: Never smoker Second Hand Exposure: No; Hx Alcohol Use: No Hx Substance Use: No Preferred Language: Bolivian Communication Ability: Effective Visual Impairment: No Limitations 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 Beliefs That Will Affect Care: None marital status: Current Living Situation: Spouse current occupational status: employed current occupation: works at [employer] Feels Safe at Home: Yes Childhood Exposure to Second-Hand Smoke: Yes caffeine: No Dental Care, Regularly: Yes Physical Activity Frequency: 3-4 Times per Week Seatbelt Use: always Sunscreen Use: Yes Assistive Devices: None Review of Systems Constitutional: no fever and no chills Eyes: no diplopia Ear, Nose, Mouth, Throat: no ear pain and no sore throat Respiratory: no cough and no dyspnea Cardiovascular: no chest pain Gastrointestinal: + nausea and + vomiting; no abdominal pain Genitourinary: + dysuria and + urinary frequency; no hematuria Musculoskeletal: + back pain (Left flank) Integumentary: no rash Neurologic: no localized weakness Physical Exam Constitutional: well developed, well nourished and + obese Eyes: no conjunctival abnormality ENMT: Ears: no hearing impairment and no external ear abnormality Neck: trachea midline Respiratory: normal respiratory effort, lungs clear to auscultation Cardiovascular: Rate/Rhythm: regular rate and regular rhythm Gastrointestinal (Abdomen): Rotund, soft, nontender Musculoskeletal: No calf tenderness Skin: no rashes Neurologic: moves all extremities Psychiatric: A+Ox3, euthymic affect Genitourinary: + CVA tenderness (Left-sided CVA tenderness with percussion, no CVA tenderness on the right) Results & Data ([facility]) Vital Signs (Past 12 Hours) Vital Signs Temp Pulse Pulse Resp BP BP Pulse Ox 06/03/21 19:29 98 H 20 130/75 97 06/03/21 16:44 36.6 C 96 H 20 127/90 99 PG Care Time/CCT Total # of Minutes Spent Total Time Spent with Patient: Total time spent is greater than 50% in coordination of care (as documented) at patient's floor/unit and/or counseling patient: Coding Level of Care Code 88490 Inpt Consult Level 5 Diagnoses Kidney stone N20.0
[2021-06-03 22:05] LABS: Bilirubin,Total 0.3 mg/dl (0.2-1)
[2021-06-03] MEDS: ONDANSETRON INJ 2 MG/ML 2 ML VIAL IV PRN (22:41)
[2021-06-03] MEDS: MoRPHine SULFATE 4 MG/ML 1 ML CARP\\VIAL IV PRN (22:41)
[2021-06-03] MEDS: LACTATED RINGER'S 1,000 ML IV SCH (22:41)
[2021-06-03 23:35] LABS: Appearance Urine Clear (Clear); Bacteria Urine Automated Negative (Negative); Bilirubin Urine Negative (Negative); Blood Urine Negative (Negative); Color Urine Dark Yellow; Epithelial Cell Urine Auto >30 /lpf (0-5); Glucose Urine UA Negative (Negative); Ketones Urine Trace (Negative); Leukocyte Esterase Urine 1+ (Negative); Nitrite Urine Negative (Negative); Protein Urine Negative (Negative); RBC Urine Automated 0-4 /hpf (0-4); Specific Gravity Urine 1.037 (1.000-1.030); Urobilinogen Urine Negative (Negative); pH Urine 5.5 (4.5-7.5)
[2021-06-04] MEDS: oxyCODONE HCL IR 5 MG TAB (IMMEDIATE RELEASE) PO PRN (01:19)
--- NOTE | 2021-06-04 01:50 | Emergency Department Note ---
Impression & Plan Intractable abdominal pain, Left ureteral calculus, Kidney stone ED Provider Note CHIEF COMPLAINT: Left flank pain HISTORY OF PRESENT ILLNESS: This 45-year-[facility] complaints of left-sided flank pain. The patient states she has been to the emergency department twice now with complaints of similar discomfort. She was diagnosed with kidney stones after CT imaging. She was given pain medication (oxycodone) be used for severe pain which was initially controlling the discomfort but now it is not working. Patient denies any fevers, vomiting. She has not taking any antibiotics. REVIEW OF SYSTEMS: A review of systems was performed with positives and pertinent negatives listed in the history of present illness. 10 systems were reviewed and are otherwise negative. ALLERGIES: see below MEDICATIONS: see below PMH: see below SOCIAL HISTORY: see below DDx: Renal colic, UTI, appendicitis, diverticulitis, mesenteric ischemia, aortic pathology, infections, inflammatory bowel disease, PUD, biliary pathology, as well as other pathologies. PHYSICAL EXAM: Vital signs reviewed. General: Chronically ill-appearing 45-year-old female, morbidly obese, in no significant distress. HEENT: No scleral icterus, PERRLA, neck supple. Atraumatic. Cardiovascular: Regular rate and rhythm, no extra sounds. Pulmonary: Clear to auscultation bilaterally, normal work of breathing. Abdomen: Soft, obese, nontender, nondistended, positive bowel sounds. Positive left CVA tenderness. Exam is significantly hindered by patient's body habitus. Musculoskeletal: Atraumatic, no peripheral edema. Neurologic: Patient awake alert and oriented x 3, speech is clear Skin: Warm, dry, no rash EMERGENCY DEPARTMENT COURSE/MDM: This patient was evaluated and appeared to be in no significant distress. IV access was obtained and laboratory work was drawn. Patient was placed on the hall monitor and noted to be in a normal sinus rhythm at 78 bpm. Patient was hydrated with normal saline solution. She was medicated with IV Dilaudid and Zofran for her discomfort. KUB was performed and read by radiology as a persistent left ureteral calculus. There is no evidence of infection in the urine. Patient was given 10 mg of IV Toradol. Given that this is the patient's 3rd visit to the emergency department for similar complaints and that her pain is still uncontrolled, urology and internal medicine were consulted on the patient's case. Patient will be evaluated for admission and further management. She is aware of the plan and agrees. MONITORING: An order for cardiac monitoring was placed and the patient is noted to be in a normal sinus rhythm at 78 beats per minute. RADIOLOGY: See below DISPOSITION: Admit Past Med/Surg History Medical History Abdominal pain Anemia Depression with anxiety Disc disease, degenerative, lumbar or lumbosacral GERD (gastroesophageal reflux disease) H/O female hirsutism History of small bowel obstruction Insomnia Leukocytosis Lumbar radiculopathy Osteoarthritis Syncope Surgical History History of adenoidectomy History of appendectomy Removed during bowel resection surgery History [place] [facility] [place] Laproscopic converted to Open biliopancreatic diversion with duodenal switch History of bowel resection D/T SCAR TISSUE History of cardiac cath VERTIGO>OCTOBER 2017 (NO PROBLEMS) History of cholecystectomy History of colonoscopy History of esophagogastroduodenoscopy (EGD) Hx of cholecystectomy S/P biliopancreatic diversion with duodenal switch S/P gastric bypass Family History Mother Family history of diabetes mellitus Pancreatic cancer Aunt Breast cancer Denies family history of Ovarian cancer Prostate cancer Lung cancer Colorectal cancer Social History Smoking Status: Never smoker Second Hand Exposure: Yes (not in last 7years); Do You Dip or Chew Tobacco: No; Tobacco Cessation Education Requested by Patient: No Hx Alcohol Use: No Hx Substance Use: No Preferred Language: Montserratian Communication Ability: Effective Visual Impairment: No Limitations Hearing Ability: Normal 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 Beliefs That Will Affect Care: None marital status: Current Living Situation: Spouse current occupational status: employed current occupation: works at [id number] Other Information That Helps Us Care for You: No Feels Safe at Home: Yes Safety Concerns: Feels Safe At This Time Childhood Exposure to Second-Hand Smoke: Yes caffeine: No Dental Care, Regularly: Yes Physical Activity Frequency: 3-4 Times per Week Seatbelt Use: always Sunscreen Use: Yes Assistive Devices: Walker and Wheelchair Allergies Allergies Allergy/AdvReac Type Severity Reaction Status Date / Time tamsulosin [From Flomax] Allergy Severe angioedema Verified 06/01/21 08:02 Home Meds Home Medications Medication Instructions Recorded Confirmed omeprazole 20 mg capsule,delayed 20 mg PO QAM 05/20/19 06/01/21 release phytonadione (vitamin K1) 100 mcg 100 mcg PO QAM 08/03/19 06/01/21 tablet vitamin A 10,000 unit capsule 10,000 unit PO DAILY 05/25/21 06/01/21 vitamin E 400 unit capsule 400 unit PO QAM 05/25/21 06/01/21 escitalopram oxalate 20 mg tablet 20 mg PO DAILY 06/03/21 06/03/21 Previous Rx's Medication Instructions Recorded levothyroxine 25 mcg tablet 25 mcg PO DAILY #30 tab 09/29/20 (Synthroid) sumatriptan succinate 100 mg tablet See Rx Instructions PO .COMPLEX 90 03/20/21 Days #27 tab ondansetron 4 mg disintegrating 4 mg PO Q8H PRN #30 tab 03/23/21 tablet gabapentin 800 mg tablet 800 mg PO TID #270 tab 03/24/21 hydroxyzine HCl 25 mg tablet 25 mg PO HS #30 tab 05/18/21 levonorgestrel 0.15 mg-ethinyl 1 tab PO QAM #84 tab 05/21/21 estradiol 0.03 mg tablet (Kurvelo (28)) cephalexin 500 mg capsule 500 mg PO BID 14 Days #28 cap 05/25/21 oxycodone-acetaminophen 5 mg-325 1 tab PO Q8H PRN #14 tab 05/25/21 mg tablet (Percocet) oxycodone 10 mg tablet 10 mg PO BID PRN #10 tab 05/29/21 venlafaxine 150 mg 150 mg PO DAILY #30 cap 06/02/21 capsule,extended release 24 hr Results & Data (ED) Vital Signs Vital Signs - 24 hr 06/03/21 16:44 06/03/21 19:29 06/03/21 23:26 Temperature 36.6 C Temperature Source Oral Pulse Rate 96 H 80 Pulse Rate [Left Finger] 98 H 78 Pulse Rhythm [Left Finger] Regular Respiratory Rate 20 20 17 Respiratory Effort / Characteristics Non-Labored Spontaneous Non-Labored Spontaneous Respiratory Depth Normal Normal Respiratory Pattern Regular Blood Pressure 127/90 Blood Pressure [Left Arm] 130/75 117/85 Blood Pressure Mean 102 Blood Pressure Mean [Left Arm] 93 95 Blood Pressure Position [Left Arm] Sitting Pulse Oximetry 99 97 97 Oxygen Delivery Method Room Air Room Air Room Air Sepsis Recent Fever Within 48 Hours No Sepsis New/Unexplained Change in Mental Status No Sepsis Action Taken by Nursing No Action Required 06/04/21 01:48 Temperature Temperature Source Pulse Rate Pulse Rate [Left Finger] 73 Pulse Rhythm [Left Finger] Respiratory Rate 16 Respiratory Effort / Characteristics Non-Labored Respiratory Depth Normal Respiratory Pattern Regular Blood Pressure Blood Pressure [Left Arm] 130/79 Blood Pressure Mean Blood Pressure Mean [Left Arm] 96 Blood Pressure Position [Left Arm] Pulse Oximetry 98 Oxygen Delivery Method Sepsis Recent Fever Within 48 Hours Sepsis New/Unexplained Change in Mental Status Sepsis Action Taken by [facility]ent[facility] Medications Current Medication List: was personally reviewed by me Laboratory Data Attestation: I reviewed the patient's lab results. Result diagrams: 06/04/21 08:00 06/04/21 08:00 Lab Results 06/03/21 06/03/21 Range/Units 18:00 18:00 WBC 9.72 (4.8-10.8) K/uL RBC 4.57 (4.2-5.4) M/uL Hgb 13.2 (12.0-16.0) g/dL Hct 41.8 (37-47) % MCV 91.5 (80-100) fL MCH 28.9 (25-34) pg MCHC 31.6 L (32-36) g/dL RDW Std Deviation 48.3 H (36.4-46.3) fL RDW Coeff of [place] 14.3 (11.5-14.5) % Plt Count 399 (130-400) K/uL MPV 10.5 H (7.4-10.4) fL Immature Gran % (Auto) 0.1 % Neut % (Auto) 77.5 % Lymph % (Auto) 14.5 % [place] % (Auto) 6.1 % Eos % (Auto) 1.6 % Baso % (Auto) 0.2 % Neut # (Auto) 7.53 H (1.4-6.5) K/uL Lymph # (Auto) 1.41 (1.2-3.4) K/uL Pitt # (Auto) 0.59 (0.11-0.59) K/uL Eos # (Auto) 0.16 (0-0.5) K/uL Baso # (Auto) 0.02 (0-0.2) K/uL Immature Gran # (Auto) 0.01 (0.00-0.02) K/uL Sodium 140 (136-145) mmol/L Potassium 4.4 (3.5-5.1) mmol/L Chloride 108 H (98-107) mmol/L Carbon Dioxide 27 (21-32) mmol/L Anion Gap 5.0 (3-11) BUN 11 (7-18) mg/dl Creatinine 1.43 H (0.6-1.2) mg/dl Est Cr Clr Drug Dosing Not Reportable Est GFR ( Amer) 51.1 ml/min Est GFR (Non-Af Amer) 44.1 ml/min BUN/Creatinine Ratio 7.6 L (10-20) Glucose 93 (70-99) mg/dl Calcium 8.5 (8.5-10.1) mg/dl Total Bilirubin 0.3 (0.2-1) mg/dl AST 25 (15-37) U/L ALT 26 (12-78) Alkaline Phosphatase 90 (45-117) U/L Total Protein 7.4 (6.4-8.2) gm/dl Albumin 2.8 L (3.4-5.0) gm/dl Lipase 108 (73-393) U/L Administered Medications Escitalopram Oxalate (Escitalopram Oxalate 20 Mg Tab) 20 mg PO DAILY KHADRA Stop: 07/04/21 08:59 Last Admin: 06/04/21 07:55 Dose: 20 mg Documented by: [id number] Gabapentin (Gabapentin 800 Mg Tab) 800 mg PO TID KHADRA Stop: 07/04/21 08:59 Last Admin: 06/04/21 21:31 Dose: 800 mg Documented by: [id number] Admin: 06/04/21 14:21 Dose: 800 mg Documented by: [id number] Admin: 06/04/21 07:55 Dose: 800 mg Documented by: [id number] Hydroxyzine HCl (Hydroxyzine Hcl 25 Mg Tab) 25 mg PO HS KHADRA Stop: 07/04/21 20:59 Last Admin: 06/04/21 21:31 Dose: 25 mg Documented by: [id number] Acetaminophen (Ofirmev) 1,000 mg in 100 mls @ 400 mls/hr IV Q8H PRN PRN Reason: Pain or Agitation Stop: 06/06/21 21:51 Last Infusion: 06/04/21 00:45 Dose: 0 mls/hr Documented by: [id number] Admin: 06/04/21 00:30 Dose: 400 mls/hr Documented by: [id number] Ciprofloxacin (Cipro / D5w) 400 mg in 200 mls @ 100 mls/hr IV Q12H KHADRA; Protocol Stop: 06/09/21 13:14 Last Infusion: 06/05/21 04:04 Dose: 0 mls/hr Documented by: [id number] Infusion: 06/05/21 01:50 Dose: 100 mls/hr Documented by: [id number] Infusion: 06/05/21 01:20 Dose: 0 mls/hr Documented by: [id number] Admin: 06/05/21 01:17 Dose: 100 mls/hr Documented by: [id number] Infusion: 06/04/21 17:27 Dose: 0 mls/hr Documented by: [id number] Admin: 06/04/21 14:22 Dose: 100 mls/hr Documented by: [id number] Levothyroxine Sodium (Levothyroxine Sodium 25 Mcg Tablet) [facility] Stop: 07/04/21 06:29 Last Admin: 06/04/21 06:39 Dose: 25 mcg Documented by: [id number] Miscellaneous (Oral Contraceptive: Order Awaiting Action) 1 ea N/A QS [facility] Stop: 07/04/21 07:59 Last Admin: 06/04/21 23:43 Dose: Not Given Documented by: [id number] Admin: 06/04/21 15:36 Dose: Not Given Documented by: [id number] Admin: 06/04/21 07:54 Dose: Not Given Documented by: [id number] Morphine Sulfate (Morphine Sulfate 4 Mg/Ml 1 Ml Carp\Vial) 3 mg IV Q3H PRN PRN Reason: Pain Stop: 06/17/21 21:51 Last Admin: 06/05/21 01:50 Dose: 3 mg Documented by: [id number] Admin: 06/04/21 21:30 Dose: 3 mg Documented by: [id number] Admin: 06/04/21 18:12 Dose: 3 mg Documented by: [id number] Admin: 06/04/21 14:32 Dose: 3 mg Documented by: [id number] Admin: 06/04/21 09:17 Dose: 3 mg Documented by: [id number] Admin: 06/04/21 05:27 Dose: 3 mg Documented by: [id number] Admin: 06/04/21 02:42 Dose: 3 mg Documented by: [id number] Admin: 06/03/21 22:41 Dose: 3 mg Documented by: [id number] Ondansetron HCl (Ondansetron Inj 2 Mg/Ml 2 Ml Vial) 4 mg IV Q6H PRN PRN Reason: Nausea And Vomiting Stop: 07/03/21 21:51 Last Admin: 06/05/21 04:20 Dose: 4 mg Documented by: [id number] Admin: 06/04/21 08:04 Dose: 4 mg Documented by: [id number] Admin: 06/03/21 22:41 Dose: 4 mg Documented by: [id number] Oxycodone HCl (Oxycodone Hcl Ir 5 Mg Tab (Immediate Release)) 5 mg PO Q6H PRN PRN Reason: Pain Stop: 06/17/21 21:51 Last Admin: 06/04/21 01:19 Dose: 5 mg Documented by: [id number] Pantoprazole Sodium (Pantoprazole 40 Mg Tab) 40 mg PO QAM KHADRA Stop: 07/04/21 08:59 Last Admin: 06/04/21 07:55 Dose: 40 mg Documented by: [id number] Venlafaxine HCl (Venlafaxine Hcl Xr 150 Mg Capxr) 150 mg PO DAILY KHADRA Stop: 07/04/21 08:59 Last Admin: 06/04/21 07:55 Dose: 150 mg Documented by: [id number] Discontinued Medications Cephalexin HCl (Cephalexin 500 Mg Cap) 500 mg PO BID KHADRA Stop: 06/14/21 08:59 Last Admin: 06/04/21 07:55 Dose: 500 mg Documented by: [id number] Fentanyl Citrate (Fentanyl Citrate 100 Mcg/2 Ml Vial) 25 mcg IV Q5M PRN PRN Reason: PACU Use Only-Pain Stop: 06/04/21 18:10 Last Admin: 06/04/21 13:40 Dose: 25 mcg Documented by: [id number] Admin: 06/04/21 13:35 Dose: 25 mcg Documented by: [id number] Admin: 06/04/21 13:30 Dose: 25 mcg Documented by: [id number] Admin: 06/04/21 13:25 Dose: 25 mcg Documented by: [id number] Admin: 06/04/21 13:15 Dose: 25 mcg Documented by: [id number] Admin: 06/04/21 13:10 Dose: 25 mcg Documented by: [id number] Admin: 06/04/21 13:05 Dose: 25 mcg Documented by: [id number] Hydromorphone HCl (Hydromorphone Inj 0.5 Mg/0.5 Ml Syr) 0.5 mg IV NOW STA Stop: 06/03/21 19:05 Last Admin: 06/03/21 19:25 Dose: 0.5 mg Documented by: [id number] Sodium Chloride (Nss 1000ml) 1,000 mls @ 999 mls/hr IV .Q1H1M STA Stop: 06/03/21 20:04 Last Infusion: 06/03/21 22:41 Dose: 0 mls/hr Documented by: [id number] Admin: 06/03/21 19:25 Dose: 999 mls/hr Documented by: [id number] Lactated Ringer's (Lr) 1,000 mls @ 100 mls/hr IV .Q10H KHADRA Stop: 06/04/21 07:59 Last Infusion: 06/04/21 15:35 Dose: 0 mls/hr Documented by: [id number] Infusion: 06/04/21 15:33 Dose: 0 mls/hr Documented by: [id number] Admin: 06/04/21 09:18 Dose: 100 mls/hr Documented by: [id number] Infusion: 06/04/21 08:41 Dose: 100 mls/hr Documented by: [id number] Admin: 06/03/21 22:41 Dose: 100 mls/hr Documented by: [id number] Ketorolac Tromethamine (Ketorolac Tromethamine 15 Mg/Ml Vial) 10 mg IV NOW STA Stop: 06/03/21 19:05 Last Admin: 06/03/21 19:25 Dose: 10 mg Documented by: [id number] Ondansetron HCl (Ondansetron Inj 2 Mg/Ml 2 Ml Vial) 4 mg IV NOW STA Stop: 06/03/21 19:05 Last Admin: 06/03/21 19:25 Dose: 4 mg Documented by: [id number] Ondansetron HCl (Ondansetron Inj 2 Mg/Ml 2 Ml Vial) 4 mg IV ONCE PRN PRN Reason: PACU Use Only-Nausea/Vomiting Stop: 06/04/21 18:10 Last Admin: 06/04/21 13:00 Dose: 4 mg Documented by: [id number] Imaging Data Radiologist's Impression: KUB X-Ray 06/03/21 19:09 KUB HISTORY: Acute left-sided flank pain L flank pain, stone on CT COMPARISON: CT abdomen and pelvis 05/28/2021 and 05/25/2021. FINDINGS: Limited exam secondary to patient body habitus. Surgical suture material related to gastric bypass. Unchanged right hemidiaphragmatic elevation. Moderate fecal retention. Renal shadows are obscured by bowel gas. 5 mm right renal calculus redemonstrated. The patient's known left nephrolithiasis is not identified. 4 mm calculus of the left ureter is noted at the level of L3-L4, not significantly changed in positioning from prior studies. No pneumoperitoneum or pneumatosis. Degenerative changes of the spine, pelvis and hips. Mid lumbar dextroscoliosis. No fracture. IMPRESSION: 1. Unchanged positioning of the 4 mm left ureteral calculus at the level of L4. 2. Right nephrolithiasis redemonstrated. 3. Limited study secondary to patient body habitus and obscuring bowel gas. ACT 112: Negative or not required by law. The above report was generated using voice recognition software. It may contain grammatical, syntax or spelling errors. Electronically signed by: Michael Abebe M.D. 06/03/2021 8:02 PM Blood Pressure Blood Pressure Findings: Normal blood pressure Blood Pressure Disposition: did not require urgent referral Discharge Plan Visit Data Chief Complaint: Kidney Stone Stated Complaint: KIDNEY STONE PAIN ED Provider: Sonya Baca Discharge Problem: Intractable abdominal pain, Left ureteral calculus, Kidney stone Patient Disposition: Admitted As Inpatient Discharge Instructions Interventions: ED Discharge Assessment Last Done: 06/04/21 01:53
[2021-06-04] MEDS ORDERED: SUMAtriptan succinate 100 MG TAB PO PRN (02:41)
[2021-06-04] MEDS: MoRPHine SULFATE 4 MG/ML 1 ML CARP\\VIAL IV PRN ×6 (02:42→21:30)
[2021-06-04] MEDS ORDERED: FLUARIX QUADRIVALENT 0.5 ML SYR IM ONE (03:02)
[2021-06-04] MEDS: LEVOTHYROXINE SODIUM 25 MCG TABLET PO SCH (06:39)
[2021-06-04] MEDS: VENLAFAXINE HCL XR 150 MG CAPXR PO SCH (07:55)
[2021-06-04] MEDS: ESCITALOPRAM OXALATE 20 MG TAB PO SCH (07:55)
[2021-06-04] MEDS: GABAPENTIN 800 MG TAB PO SCH ×3 (07:55→21:31)
[2021-06-04] MEDS: PANTOprazole 40 MG TAB PO SCH (07:55)
[2021-06-04] MEDS: ONDANSETRON INJ 2 MG/ML 2 ML VIAL IV PRN (08:04)
[2021-06-04 08:47] LABS: Basophils # (auto) 0.03 K/uL (0-0.2); Basophils % (auto) 0.4 %; Eosinophils # (auto) 0.18 K/uL (0-0.5); Eosinophils % (auto) 2.4 %; Hematocrit (blood only) 39.3 % (37-47); Hemoglobin 12.4 g/dL (12.0-16.0); Immature Granulocytes # (auto) 0.01 K/uL (0.00-0.02); Immature Granulocytes % (auto) 0.1 %; Lymphocytes # (auto) 1.43 K/uL (1.2-3.4); Mean Corpuscular Hemoglobin 28.8 pg (25-34); Mean Corpuscular Hgb Conc 31.6 g/dL (32-36); Mean Corpuscular Volume 91.4 fL (80-100); Mean Platelet Volume 10.3 fL (7.4-10.4); Monocytes # (auto) 0.49 K/uL (0.11-0.59); Monocytes % (auto) 6.5 %; Neutrophils # (auto) 5.37 K/uL (1.4-6.5); Neutrophils % (auto) 71.6 %; Platelet Count 341 K/uL (130-400); RDW Coefficient of Variation 14.5 % (11.5-14.5); RDW Standard Deviation 48.5 fL (36.4-46.3); White Blood Count 7.51 K/uL (4.8-10.8)
[2021-06-04] MEDS ORDERED: cephALEXin 500 MG CAP PO SCH (09:00)
[2021-06-04 09:16] LABS: BUN Creatinine Ratio 8.6 (10-20); Calcium 8.5 mg/dl (8.5-10.1); Creatinine Clr Calc Pharmacy 77.6 ml/min; Est GFR (African American) 54.8 ml/min; Est GFR (Non-African American) 47.3 ml/min; Potassium 3.9 mmol/L (3.5-5.1)
[2021-06-04] MEDS: LACTATED RINGER'S 1,000 ML IV SCH (09:18)
--- NOTE | 2021-06-04 09:26 | Urology Progress Note ---
Date of Service June 04, 2021 Assessment & Plan (1) Renal colic on left side: (2) Left ureteral calculus: Plan: 45yo F admitted with intractable left flank pain secondary to an obstructing 4mm left ureteral stone - Still with persistent left flank pain this morning, no stone passage noted overnight. - Afebrile, VSS, non-toxic appearing. - Labs reviewed - Wbc 7.51, Creatinine 1.35 (1.43 yesterday) - Urine culture pending - On PO Cephalexin - Findings reviewed with Dr. Bryan. - Given her intractable left flank pain in the context of an obstructing 4mm left ureteral stone, will proceed with OR for cystoscopy, left retrograde pyelogram, left ureteral stent placement depending on findings. Risks and benefits to be reviewed with patient by Dr. Bryan. OR notified. Covid test negative. On PO Cephalexin. - Patient agreeable to plan, all questions were answered. - Keep NPO. - Strain all urine. - Continue supportive care, antibiotic therapy, and pain management. - Will continue to follow. Admission and Anticipated Discharge Date Admission Date: June 03, 2021 Supervising Physician Co-Signing Physician Notes agree with above. imaging (CT) continues to show a prox left ureteral calc. plan for cysto and stent now. Subjective Pt examined at bedside this AM. Awake, resting in bed on arrival. No acute distress. No fevers. Denies any stone passage overnight. Still with left flank pain, currently rates 8/10. Denies nausea or vomiting this morning. Voiding without issue, though feels she is going less frequently. No hematuria. Some mild dysuria. Has been NPO. Review of Systems Constitutional: as per Subjective / HPI Genitourinary: as per Subjective / HPI Physical Exam Constitutional: well developed, well nourished and + obese Respiratory: normal respiratory effort; no respiratory distress and no labored breathing Gastrointestinal (Abdomen): Inspection/Auscultation: abdomen normal to inspection Musculoskeletal: No calf tenderness Skin: no rashes Neurologic: moves all extremities Psychiatric: Orientation: alert, oriented x 3 and cooperative Genitourinary: + CVA tenderness (Left-sided) Results & Data ([facility]) Vital Signs (Past 12 Hours) Vital Signs Temp Pulse Pulse Resp BP Pulse Ox 06/04/21 07:43 36.5 C 83 16 116/76 98 06/04/21 02:13 36.7 C 79 16 132/86 99 06/04/21 01:48 73 16 130/79 98 06/03/21 23:26 80 78 17 117/85 97 PG Care Time/CCT Total # of Minutes Spent Total Time Spent with Patient: Total time spent is greater than 50% in coordination of care (as documented) at patient's floor/unit and/or counseling patient: Coding Level of Care Code 62759 Subseq Hosp Care Lvl 2 Diagnoses Renal colic on left side N23 Left ureteral calculus N20.1
--- NOTE | 2021-06-04 10:08 | Anesthesiology Consultation ---
Date of Service June 04, 2021 Assessment & Plan (1) Encounter for pre-operative examination: Chart Review Chart Review: Acceptable Risk for Surgery Consults Requested none ASA ASA3 Proposed Anesthesia Anesthesia Type: MAC Risk / Benefits Reviewed With: PT / POA / Parent / Guardian, Accepts Plan and Informed Consent Obtained History Surgery Operation Date: 06/04/21 11:30 Proposed Procedures p Cystoscopy Retrograde Pyelogram, Left Stent Placement - Bang Bryan MD Height/Weight Height: 5 ft 3 in Weight: 155 kg Allergies Allergy/AdvReac Type Severity Reaction Status Date / Time tamsulosin [From Flomax] Allergy Severe angioedema Verified 06/01/21 08:02 Medications Home Medications Medication Instructions Recorded Confirmed Last Taken omeprazole 20 mg capsule,delayed 20 mg PO QAM 05/20/19 06/01/21 05/25/21 release phytonadione (vitamin K1) 100 mcg 100 mcg PO QAM 08/03/19 06/01/21 05/25/21 tablet levothyroxine 25 mcg tablet 25 mcg PO DAILY #30 tab 09/29/20 06/03/21 05/25/21 (Synthroid) sumatriptan succinate 100 mg tablet See Rx Instructions PO .COMPLEX 90 03/20/21 06/03/21 Unknown Days #27 tab ondansetron 4 mg disintegrating 4 mg PO Q8H PRN #30 tab 03/23/21 06/03/21 Unknown tablet gabapentin 800 mg tablet 800 mg PO TID #270 tab 03/24/21 06/03/21 05/25/21 hydroxyzine HCl 25 mg tablet 25 mg PO HS #30 tab 05/18/21 06/03/21 05/24/21 levonorgestrel 0.15 mg-ethinyl 1 tab PO QAM #84 tab 05/21/21 06/03/21 05/25/21 estradiol 0.03 mg tablet (Jennivelo (28)) cephalexin 500 mg capsule 500 mg PO BID 14 Days #28 cap 05/25/21 06/03/21 Unknown oxycodone-acetaminophen 5 mg-325 1 tab PO Q8H PRN #14 tab 05/25/21 06/01/21 Unknown mg tablet (Percocet) vitamin A 10,000 unit capsule 10,000 unit PO DAILY 05/25/21 06/01/21 05/25/21 vitamin E 400 unit capsule 400 unit PO QAM 05/25/21 06/01/21 05/25/21 oxycodone 10 mg tablet 10 mg PO BID PRN #10 tab 05/29/21 06/03/21 Unknown venlafaxine 150 mg 150 mg PO DAILY #30 cap 06/02/21 06/03/21 Unknown capsule,extended release 24 hr escitalopram oxalate 20 mg tablet 20 mg PO DAILY 06/03/21 06/03/21 Unknown Active Medications Generic Name Dose Route Start Last Admin Trade Name Freq PRN Reason Stop Dose Admin Cephalexin HCl 500 mg 06/04/21 09:00 06/04/21 07:55 Cephalexin 500 Mg Cap PO 06/14/21 08:59 500 mg BID KHADRA Administration Escitalopram Oxalate 20 mg 06/04/21 09:00 06/04/21 07:55 Escitalopram Oxalate 20 Mg Tab PO 07/04/21 08:59 20 mg DAILY KHADRA Administration Gabapentin 800 mg 06/04/21 09:00 06/04/21 07:55 Gabapentin 800 Mg Tab PO 07/04/21 08:59 800 mg TID KHADRA Administration Lactated Ringer's 1,000 mls @ 100 mls/hr 06/03/21 22:00 06/04/21 09:18 Lr IV 07/03/21 21:59 100 mls/hr .Q10H KHADRA Administration Acetaminophen 1,000 mg in 100 mls @ 400 mls/hr 06/03/21 21:52 06/04/21 00:45 Ofirmev IV 06/06/21 21:51 Infused Q8H PRN Infusion Pain or Agitation Levothyroxine Sodium 25 mcg 06/04/21 06:30 06/04/21 06:39 Levothyroxine Sodium 25 Mcg Tablet PO 07/04/21 06:29 25 mcg DAILYBB KHADRA Administration Miscellaneous 1 ea 06/04/21 08:00 06/04/21 07:54 Oral Contraceptive: Order Awaiting Action N/A 07/04/21 07:59 Not Given QS KHADRA Morphine Sulfate 3 mg 06/03/21 21:52 06/04/21 09:17 Morphine Sulfate 4 Mg/Ml 1 Ml Carp\Vial IV 06/17/21 21:51 3 mg Q3H PRN Administration Pain Ondansetron HCl 4 mg 06/03/21 21:52 12/23/21 08:04 Ondansetron Inj 2 Mg/Ml 2 Ml Vial IV 07/03/21 21:51 4 mg Q6H PRN Administration Nausea And Vomiting Oxycodone HCl 5 mg 06/03/21 21:52 06/04/21 01:19 Oxycodone Hcl Ir 5 Mg Tab (Immediate Release) PO 06/17/21 21:51 5 mg Q6H PRN Administration Pain Pantoprazole Sodium 40 mg 06/04/21 09:00 06/04/21 07:55 Pantoprazole 40 Mg Tab PO 07/04/21 08:59 40 mg QAM KHADRA Administration Venlafaxine HCl 150 mg 06/04/21 09:00 06/04/21 07:55 Venlafaxine Hcl Xr 150 Mg Capxr PO 07/04/21 08:59 150 mg DAILY KHADRA Administration NPO Date Last Intake of Fluids: 06/03/21 Time Last Intake of Fluids: 15:00 Last Intake of Fluids Comment: sips with meds this AM Date Last Intake of Solids: 06/03/21 Time Last Intake of Solids: 15:00 Past Medical History Medical History Abdominal pain Anemia Depression with anxiety Disc disease, degenerative, lumbar or lumbosacral GERD (gastroesophageal reflux disease) H/O female hirsutism History of small bowel obstruction Insomnia Leukocytosis Lumbar radiculopathy Osteoarthritis Syncope Exercise / Class Metabolic Activity II 4-5 Yardwork/Stairs/Walk up hill Past Family History Family History Mother Family history of diabetes mellitus Pancreatic cancer Aunt Breast cancer Denies family history of Ovarian cancer Prostate cancer Lung cancer Colorectal cancer Past Surgical History Surgical History History of adenoidectomy History of appendectomy Removed during bowel resection surgery History of bariatric surgery 05/14/2019 at [facility], Dr. Young - Laproscopic converted to Open biliopancreatic diversion with duodenal switch History of bowel resection D/T SCAR TISSUE History of cardiac cath VERTIGO>OCTOBER 2017 (NO PROBLEMS) History of cholecystectomy History of colonoscopy History of esophagogastroduodenoscopy (EGD) Hx of cholecystectomy S/P biliopancreatic diversion with duodenal switch S/P gastric bypass Past Anesthesia History No Hx of Anesthesia Complications and No Family Hx of Anesthesia Complications History of PONV No Hx of PONV and No Hx of Motion Sickness Social History Smoking Status: Never smoker Do You Dip or Chew Tobacco: No Hx Alcohol Use: No Hx Substance Use: No substance use type: does not use Physical Exam Vital Signs Last Vital Signs Temp 98.1 F 06/04/21 09:49 Pulse 88 06/04/21 09:49 Resp 18 06/04/21 09:49 BP 125/85 06/04/21 09:49 Pulse Ox 98 06/04/21 09:49 ENMT Mouth: no dentition abnormality Thyromental Distance: > or= 3.5 Finger Breadths Mallampati Class: II Neck normal visual inspection Respiratory normal respiratory effort Auscultation: lungs clear to auscultation bilaterally Cardiovascular Rate/Rhythm: regular rate and regular rhythm Testing Laboratory Results 06/04/21 08:00 06/04/21 08:00 Urine Color Dark Yellow 06/03/21 23:14 Urine Appearance Clear (Clear) 06/03/21 23:14 Urine pH 5.5 (4.5-7.5) 06/03/21 23:14 Ur Specific [place] 1.037 (1.000-1.030) H 06/03/21 23:14 Urine Protein Negative (Negative) 06/03/21 23:14 Urine Glucose (UA) Negative (Negative) 06/03/21 23:14 Urine Ketones Trace (Negative) H 06/03/21 23:14 Urine Nitrite Negative (Negative) 06/03/21 23:14 Ur Leukocyte Esterase 1+ (Negative) H 06/03/21 23:14 Urine WBC (Auto) 10-30 /hpf (0-5) H 06/03/21 23:14 Urine RBC (Auto) 0-4 /hpf (0-4) 06/03/21 23:14 U Hyaline Cast (Auto) 1-5 /lpf (0-5) 06/03/21 23:14 U Epithel Cells (Auto) >30 /lpf (0-5) H 06/03/21 23:14 Urine Bacteria (Auto) Negative (Negative) 06/03/21 23:14 06/04/21 10:04 POC Ur Test Pending
[2021-06-04] MEDS ORDERED: ATROPINE SULFATE 0.1 MG/ML 10ML SYR IV PRN (10:10)
[2021-06-04] MEDS ORDERED: ONDANSETRON INJ 2 MG/ML 2 ML VIAL IV PRN (10:10)
[2021-06-04] MEDS ORDERED: ePHEDrine sulfate 50 MG/ML AMP IV PRN (10:10)
[2021-06-04] MEDS ORDERED: MIDAZOLAM HCL 1 MG/ML 2ML VIAL ONE (10:38)
[2021-06-04] MEDS ORDERED: LIDOCAINE 2% 2 ML VIAL/AMP(20MG/ML) INFIL ONE (10:38)
[2021-06-04] MEDS ORDERED: ONDANSETRON INJ 2 MG/ML 2 ML VIAL ONE (10:38)
[2021-06-04] MEDS ORDERED: PROPOFOL IV EMULSION 10 MG/ML 20 ML VIAL IV ONE (10:38)
[2021-06-04] MEDS ORDERED: fentaNYL citrate 100 MCG/2 ML VIAL ONE (10:38)
--- NOTE | 2021-06-04 12:33 | Operative Report ---
PG Post Operative Report Pre & Post Diagnosis Operation Date: 06/04/21 11:30 Pre-Op Diagnosis: left ureteral stone Post-Op Diagnosis: left ureteral stone I identified the patient and participated in the time-out.: Yes Procedure Operation Date: 06/04/21 11:30 Actual Procedures p Cystoscopy Left Stent Placement(Left) - Bang Bryan MD Surgeon Joe Bryan MD Service Employee none Estimated Blood Loss 0 Findings Consistent with Post-Op Diagnosis Specimens none Description of Procedure The patient was identified in the preoperative holding area, appropriate informed consents were reviewed and completed and the patient was transferred to the operative suite. Upon arrival, appropriate antibiotics and anesthesia were administered and the patient was placed in dorsal lithotomy position and prepped and draped in sterile fashion. To begin the case to pass a 22 Norwegian cystoscope with 30 degree lens. Full inspection of the bladder was conducted and revealed a healthy-appearing bladder without mucosal abnormalities. Ureteral orifices were in orthotopic position. I turned my attention to the left UO and cannulated with a sensor wire and a 5 Norwegian open-ended catheter. Wire advanced the kidney without difficulty and I subsequently placed a 6 Norwegian by 24 cm double-J stent. My first attempted placement I thought was slightly low so I repositioned this into the upper pole. There was not a full curl in the upper pole but it was very well position. There was good curl in the bladder. I emptied her bladder and concluded the case. She was reversed of anesthesia and taken to the recovery room in stable condition. I attest to the content of the Intraoperative Record and any orders documented therein. Any exceptions are noted below.
[2021-06-04] MEDS: fentaNYL citrate 100 MCG/2 ML VIAL IV PRN ×7 (13:05→13:40)
--- NOTE | 2021-06-04 13:09 | Anesthesiology Progress Note ---
Date of Service June 04, 2021 Anesthesia Post Procedure Vital Signs Vital Signs: Temp Pulse Pulse Pulse Resp BP BP 06/04/21 12:55 90 11 L 136/90 06/04/21 12:45 90 11 L 121/86 06/04/21 12:36 97.5 F L 97 H 17 117/94 06/04/21 09:49 98.1 F 88 18 125/85 06/04/21 07:43 97.7 F 83 16 116/76 06/04/21 02:13 98.1 F 79 16 132/86 06/04/21 01:48 73 16 130/79 06/03/21 23:26 80 78 17 117/85 06/03/21 19:29 98 H 20 130/75 06/03/21 16:44 97.9 F 96 H 20 127/90 Pulse Ox 06/04/21 12:55 100 06/04/21 12:45 100 06/04/21 12:36 99 06/04/21 09:49 98 06/04/21 07:43 98 06/04/21 02:13 99 06/04/21 01:48 98 06/03/21 23:26 97 06/03/21 19:29 97 06/03/21 16:44 99 Pain Intensity Left Flank: Pain Intensity: 0 Transfer of Care Handoff Completed per policy Notes Mental Status: alert / awake / arousable and participated in evaluation Patient Amnestic to Procedure: Yes Nausea / Vomiting: adequately controlled Pain: adequately controlled Airway Patency, RR, SpO2: stable & adequate BP & HR: stable & adequate Hydration State: stable & adequate Anesthetic Complications: no major complications apparent and Pt Satisfied with anesthetic care
--- NOTE | 2021-06-04 13:17 | Fluoroscopy Report ---
FL KUB CLINICAL HISTORY: LT RETROGRADE/STENT COMPARISON STUDY: CT of the abdomen and pelvis May 28, 2021. KUB June 03, 2021. FLUOROSCOPY TIME: 14 seconds. FLUOROSCOPIC IMAGES: 2 FINDINGS: Fluoroscopy was provided during cystoscopy and left ureteral stent insertion. Proximal aspe ct of stent projects over the left renal pelvis. Distal aspect of stent projects over the bladder. IMPRESSION: Fluoroscopy provided during cystoscopy and left ureteral stent insertion. ACT 112: Negative or not required by law. Electronically signed by: Boom Joseph M.D. 06/04/2021 1:16 PM
[2021-06-04] MEDS: CIPROFLOXACIN / D5W 400 MG/200 ML BAG IV SCH (14:22)
--- NOTE | 2021-06-04 17:22 | Hospitalist Progress Note ---
Date of Service June 04, 2021 Assessment & Plan (1) Left ureteral calculus: Plan: Amparo Álvarez is a 45-year-old morbidly obese white female with a past medical history of depression and hypothyroidism �Presented to the ED on 05/25 with left-sided flank pain. CT showed radiographic evidence of a 4 mm obstructing stone with hydronephrosis and associated leukocytosis of 18,000. UA was grossly infected. Discharged home on Keflex �Return to the ED on 05/[address] showed persistent left hydronephrosis but no obvious obstructing calculi characteristic of recent passage of stone �Back to the ED on 06/03 with continued and persistent flank pain. Repeat KUB did show persistent 4 mm stone for which she was subsequently hospitalized �Treated with IV fluids, continued on empiric Keflex which was started 05/25, provided IV pain control, antiemetics and urology consulted. Flomax was avoided given reported allergy �Patient is s/p cystoscopy with ureteral stent insertion. Plan is for outpatient lithotripsy �Agree with admitting orders but will transition Keflex to Cipro X 3 days perioperatively due to risk of infection. Urine culture reviewed that was obtained on 05/25 and it appears to be a contaminated specimen; however, with procedure today she is at risk for infection. Cipro will provide added gram- negative coverage �Pending pain control, can likely discharge tomorrow with outpatient plan for lithotripsy (2) Hypothyroidism: Plan: �Continue Synthroid (3) Depression with anxiety: Plan: �Continue Effexor Plan: Plan of care discussed with Dr. Andrews Admission and Anticipated Discharge Date Admission Date: June 03, 2021 Subjective Patient seen on daily rounds today. Is s/p cystoscopy with ureteral stent insertion. Still reports some mild flank pain but otherwise denies fevers, chills, chest pain, shortness of breath, abdominal pain, nausea or vomiting. Is having some dysuria of menses was experiencing this even prior to this hospital stay) Review of Systems Review of Systems: All systems reviewed and are unremarkable except as noted in HPI and below Denies fevers, chills, headache, nasal congestion, sore throat, cough, chest pain, shortness of breath, palpitations, orthopnea, PND, abdominal pain, nausea, vomiting, diarrhea, constipation, dysuria, hematuria, frequency, back pain, joint pain or swelling, easy bruising or bleeding, skin lesions or rashes. Physical Exam Physical Exam: General: Resting comfortably in her hospital bed. She does not appear ill or toxic. Mild NAD. HEENT: Head is AT/NC buccal mucosa is moist and pink Neck: No JVD. Negative hepatojugular reflex Cardiac: RRR without M/G/R Lungs: CTA without W/R/R Abdomen: Normoactive X4. Soft and nontender in all quadrants. Mild left sided CVA tenderness extremities: + adiposity without true edema Neuro: A&O X4 cranial nerves II through XII are grossly intact no focal neuro deficits Skin: No obvious skin lesions or rashes Psych: Appropriate affect pleasant and cooperative Results & Data Results & Data ([facility]) Vital Signs (Past 12 Hours) Vital Signs Temp Pulse Pulse Resp BP Pulse Ox 06/04/21 16:00 36.6 C 96 H 18 119/81 98 06/04/21 14:56 36.5 C 104 H 16 127/83 93 06/04/21 14:25 36.4 C L 100 H 18 135/93 95 06/04/21 14:00 36.4 C L 95 H 16 129/79 96 06/04/21 13:55 36.6 C 85 16 135/81 99 06/04/21 13:45 36.6 C 84 13 121/94 94 06/04/21 13:25 36.6 C 90 14 136/88 96 06/04/21 13:15 95 H 14 115/96 98 06/04/21 13:05 95 H 15 127/97 98 06/04/21 12:55 90 11 L 136/90 100 06/04/21 12:45 90 11 L 121/86 100 06/04/21 12:36 36.4 C L 97 H 17 117/94 99 06/04/21 12:35 36.6 C 99 H 11 L 119/91 91 06/04/21 09:49 36.7 C 88 18 125/85 98 06/04/21 07:43 36.5 C 83 16 116/76 98 Laboratory Results 06/04/21 08:00 06/04/21 08:00 PG Care Time/CCT Total # of Minutes Spent Total Time Spent with Patient: Total time spent is greater than 50% in coordination of care (as documented) at patient's floor/unit and/or counseling patient: Coding Level of Care Code 00628 Subseq Hosp Care Lvl 2 Diagnoses Left ureteral calculus N20.1 Hypothyroidism E03.9 Depression with anxiety F41.8
[2021-06-04] MEDS ORDERED: hydrOXYzine HCl 25 MG TAB PO SCH (21:00)
[2021-06-05] MEDS: MoRPHine SULFATE 4 MG/ML 1 ML CARP\\VIAL IV PRN ×4 (01:16→05:34)
[2021-06-05] MEDS: CIPROFLOXACIN / D5W 400 MG/200 ML BAG IV SCH (01:17)
[2021-06-05] MEDS: ONDANSETRON INJ 2 MG/ML 2 ML VIAL IV PRN (04:20)
[2021-06-05] MEDS: LEVOTHYROXINE SODIUM 25 MCG TABLET PO SCH (06:09)
[2021-06-05 06:30] LABS: Basophils # (auto) 0.04 K/uL (0-0.2); Basophils % (auto) 0.7 %; Eosinophils # (auto) 0.17 K/uL (0-0.5); Hematocrit (blood only) 39.3 % (37-47); Hemoglobin 12.4 g/dL (12.0-16.0); Immature Granulocytes # (auto) 0.01 K/uL (0.00-0.02); Immature Granulocytes % (auto) 0.2 %; Lymphocytes # (auto) 1.21 K/uL (1.2-3.4); Lymphocytes % (auto) 21.5 %; Mean Corpuscular Hemoglobin 28.6 pg (25-34); Mean Corpuscular Hgb Conc 31.6 g/dL (32-36); Mean Corpuscular Volume 90.6 fL (80-100); Mean Platelet Volume 9.7 fL (7.4-10.4); Monocytes # (auto) 0.36 K/uL (0.11-0.59); Monocytes % (auto) 6.4 %; Neutrophils # (auto) 3.84 K/uL (1.4-6.5); Neutrophils % (auto) 68.2 %; Platelet Count 323 K/uL (130-400); RDW Coefficient of Variation 14.2 % (11.5-14.5); RDW Standard Deviation 47.4 fL (36.4-46.3); Red Blood Count 4.34 M/uL (4.2-5.4); White Blood Count 5.63 K/uL (4.8-10.8)
[2021-06-05 07:06] LABS: BUN Creatinine Ratio 7.5 (10-20); Calcium 8.7 mg/dl (8.5-10.1); Creatinine Clr Calc Pharmacy 83.2 ml/min; Est GFR (African American) 59.6 ml/min; Est GFR (Non-African American) 51.4 ml/min; Magnesium 1.7 mg/dl (1.8-2.4); Potassium 3.9 mmol/L (3.5-5.1)
[2021-06-05] MEDS: VENLAFAXINE HCL XR 150 MG CAPXR PO SCH (07:11)
[2021-06-05] MEDS: GABAPENTIN 800 MG TAB PO SCH (07:11)
[2021-06-05] MEDS: PANTOprazole 40 MG TAB PO SCH (07:11)
[2021-06-05] MEDS: ESCITALOPRAM OXALATE 20 MG TAB PO SCH (07:12)
[2021-06-05] MEDS: oxyCODONE HCL IR 5 MG TAB (IMMEDIATE RELEASE) PO PRN (08:27)
--- NOTE | 2021-06-05 09:21 | Urology Progress Note ---
Date of Service June 05, 2021 Assessment & Plan (1) Left ureteral calculus: Plan: stent placed yesterday cont oral abx x 3 more days we will arrange for outpt f/u Admission and Anticipated Discharge Date Admission Date: June 03, 2021 Subjective improved today still with some flank pain, but much less severe than yesterday anxious to go home Physical Exam Constitutional: well developed and well nourished Respiratory: no respiratory distress Cardiovascular: Extremities: no pedal edema Gastrointestinal (Abdomen): Inspection/Auscultation: abdomen normal to inspection Results & Data ([facility]) Vital Signs (Past 12 Hours) Vital Signs Temp Pulse Resp BP BP Pulse Ox 06/05/21 07:03 36.4 C L 83 18 136/85 98 06/05/21 04:17 36.8 C 94 H 16 133/88 98 06/04/21 23:05 36.3 C L 90 20 124/88 98 PG Care Time/CCT Total # of Minutes Spent Total Time Spent with Patient: Total time spent is greater than 50% in coordination of care (as documented) at patient's floor/unit and/or counseling patient: Coding Level of Care Code 16039 Subseq Hosp Care Lvl 2 Diagnoses Left ureteral calculus N20.1
--- NOTE | 2021-06-05 18:23 | Discharge Summary ---
Date of Service June 05, 2021 Admission HPI Per Admitting Provider This a 45-year-old female who presents [facility] secondary to ongoing left flank pain. Patient notes that she was in her usual state of health until approximately May 25 of this year when she developed some left-sided flank pain. She notes that the pain in addition to being in the left flank radiates to the front of her abdomen into her left groin somewhat. She denies any hematuria but does note some dysuria along with urinary frequency. In addition she has had nausea vomiting with limited oral intake. She denies any fevers, shakes, chills. Patient denies any shortness of breath or chest pain. She does note a past history of kidney stones but has never required any cystoscopy or lithotripsy and has always been able to pass the stones on her own. Patient initially presented to [facility] emergency department on 05/25/2021. On this date patient had a CT scan of the abdomen and pelvis that showed an obstructive stone in the proximal ureter measuring 4 mm. There was some associated left hydronephrosis noted on the study. On this date the patient had a CBC where her white blood cell count was elevated 18.5. Her hemoglobin, hematocrit, and platelet count were noted to be within normal range. A chemistry profile in the states showed her sodium and potassium were both normal. Her BUN and creatinine were also noted to be normal at this time. Urin alysis on this date showed 1+ blood and was negative for nitrite. She was noted to have 10-30 white blood cells per high-power field and 1+ leukocyte esterase. Bacteria was negative. Urine culture from this date was reviewed and grew out lactobacillus. She can presented to [facility] emergency department on 05/28/2021. She had another CAT scan of the abdomen and pelvis which showed some persistent left hydronephrosis but there was no evidence of obstructing ureteral calculi, and was felt that this CAT scan finding represented the recent passage of a kidney stone. She was however noted to have a nonobstructing left upper pole renal stone. On this date the patient had a repeat CBC where her white blood cell count, hemoglobin, and hematocrit were normal. Her platelet count was 404K. Chemistry profile on this date showed sodium and potassium remain normal, as did her BUN and creatinine. Urinalysis on this date was negative for blood and nitrite. She was noted to have trace leukocyte esterase and only 5-10 white blood cells per high-power field. Bacteria was again noted to be negative. A urine culture on this date was not performed. Today in the emergency department the patient did have a KUB that showed a 4 mm left ureteral calculi at the level of L4. Laboratories today include a CBC were white blood cell count, hemoglobin, hematocrit, and platelet count are all within normal range. Chemistry profile today shows sodium and potassium remain normal. Her BUN is normal but her creatinine had a slight elevation to 1.4. Since arrival today the patient has been unable to produce a urine specimen. At the time of my interview the patient was sitting comfortably in a wheelchair. She was in no distress. Principal Diagnosis left renal colic s/p ureteral stent Discharge Exam The patient appeared well Vital signs as documented. Lungs are clear to auscultation and appear unlabored Cardiac exam, Rhythm is regular.. No murmurs, rubs or gallops. Abdominal exam reveals normal bowel sounds, soft non tender, no masses Extremities are nonedematous and both pedal pulses are normal. Neurologic exam is alert and oriented, no focal loss of strength or sensation Skin is without bruises or rashes Psychologically is without concerns for anxiety or depression. Discharge Data Allergies Allergy/AdvReac Type Severity Reaction Status Date / Time tamsulosin [From Flomax] Allergy Severe angioedema Verified 06/01/21 08:02 Consultations 06/03/21 21:49 ED Decision to Admit Stat 06/04/21 02:41 Consult Urology Routine Procedures Performed Operation Date: 06/04/21 11:30 Actual Procedures p Cystoscopy Left Stent Placement(Left) - Bang Bryan MD Ordered Studies 06/04/21 12:30 FL KUB Routine Hospital Course (1) Left ureteral calculus: Amparo lÁvarez is a 45-year-old morbidly obese white female with a past medical history of depression and hypothyroidism �Presented to the ED on 05/25 with left-sided flank pain. CT showed radiographic evidence of a 4 mm obstructing stone with hydronephrosis and associated leukocytosis of 18,000. UA was grossly abnormal. Discharged home on Keflex, will continue this �Return to the ED on 05/[address] showed persistent left hydronephrosis but no obvious obstructing calculi characteristic of recent pas rosita of stone �Back to the ED on 06/03 with continued and persistent flank pain. Repeat KUB did show persistent 4 mm stone for which she was subsequently hospitalized and had a ureteral stent - Flomax was avoided given reported allergy �Patient is s/p cystoscopy with ureteral stent insertion. Plan is for outpatient lithotripsy will follow up with �did have Cipro 06/03,, (2) Hypothyroidism: �Continue Synthroid (3) Depression with anxiety: �Continue Effexor Total Time Total Time Spent Total Time Spent (In Minutes): It required greater than 30 minutes to prepare this patient for discharge Discharge Plan Discharge Items Patient Disposition: Home - Self-Care Reason For Visit: RENAL COLIC Discharge Diagnosis: kidney stone with stent placed to relieve obstruction need to follow up as an outpt Activity: Resume your previous activity Non-emergency contact: Primary Care Provider and Urologist Call non-emergency contact if: your symptoms worsen and you have a fever Follow-up/Referrals: Bang Bryan MD [Physician] - Carmella Ortiz MD [Primary Care Provider] - Diet: Regular Addtl Attending Provider Instructions: He presented for care of a left-sided kidney stone. A stent was placed by Dr. Bryan to relieve the irritated obstruction of the tube that drains your kidney to your bladder. You may have occasional discomfort over next few days. It is recommended you definitely follow-up with Dr. Bryan for further attention to the stent and removal. Pending Studies at Discharge: Yes Studies:: Urine culture is pending Stand-Alone Forms: My [facility], Smoking Cessation Medications and DC Order Prescriptions: Continued levothyroxine [Synthroid] 25 mcg tablet 25 mcg PO DAILY Qty: 30 RF: 2 sumatriptan succinate 100 mg tablet See Rx Instructions PO .COMPLEX 90 Days Qty: 27 RF: 4 ondansetron 4 mg tablet,disintegrating 4 mg PO Q8H PRN (Reason: nausea and vomiting) Qty: 30 RF: 1 gabapentin 800 mg tablet 800 mg PO TID Qty: 270 RF: 3 hydroxyzine HCl 25 mg tablet 25 mg PO HS Qty: 30 RF: 2 levonorgestrel-ethinyl estrad [[place] (28)] 0.15-0.03 mg tablet 1 tab PO QAM Qty: 84 RF: 11 venlafaxine 150 mg capsule,extended release 24hr 150 mg PO DAILY Qty: 30 RF: 2 phytonadione (vitamin K1) 100 mcg tablet 100 mcg PO QAM RF: 0 omeprazole 20 mg capsule,delayed release(DR/EC) 20 mg PO QAM RF: 0 vitamin E 400 unit Capsule 400 unit PO QAM RF: 0 vitamin A 10,000 unit Capsule 10,000 unit PO DAILY RF: 0 escitalopram oxalate 20 mg tablet 20 mg PO DAILY RF: 0 cephalexin 500 mg capsule 500 mg PO BID 14 Days Qty: 10 RF: 0 oxycodone 10 mg tablet 10 mg PO BID PRN (Reason: pain) Qty: 10 RF: 0 Discontinued oxycodone-acetaminophen [Percocet] 5-325 mg tablet 1 tab PO Q8H PRN (Reason: pain) Qty: 14 RF: 0 Discharge Orders: Discharge Order (Routine); Ordered 06/05/21 Ordered By: Chintan Rai Admission Data Admit Date/Time: 06/03/21 21:52 Attending Provider: Chintan Rai Admit Provider: Cleve Justice Primary Care Provider: Carmella Ortiz Other Providers: Ezra Andrews ; Mumtaz Patterson ; Bereket Chandler Other Interventions: Discharge Summary Assessment (RN) Last Done: 06/05/21 11:17 Coding Level of Care Code D/C DAY MANAGEMENT >30 MINS Diagnoses Left ureteral calculus N20.1 Hypothyroidism E03.9 Depression with anxiety F41.8
--- NOTE | 2021-06-06 06:08 | Billing Data ---
Date of Service June 06, 2021 Coding Level of Care Code 32828 Initial Inpt Care Lvl 2
== END 2021-06-05 11:59 | disposition home or self-care (01) ==
LOC: 3E 16:37 → ED 16:37 → SUATTDRO 21:52 → 3E 06-04 01:53
DX: Z79.899 Other long term (current) drug therapy; K21.9 Gastro-esophageal reflux disease without esophagitis; Z88.8 Allergy status to other drugs, medicaments and biological substances; Z79.890 Hormone replacement therapy; E03.9 Hypothyroidism, unspecified; E66.01 Morbid (severe) obesity due to excess calories; Z98.84 Bariatric surgery status; F41.8 Other specified anxiety disorders; Z68.44 Body mass index [BMI] 60.0-69.9, adult; N20.0 Calculus of kidney

== ENCOUNTER 2022-01-27 22:24 | Observation (INO) ==
[2022-01-27] MEDS ORDERED: ONDANSETRON INJ 2 MG/ML 2 ML VIAL IV STA (23:12)
[2022-01-27] MEDS ORDERED: KETOROLAC 30 MG/ML VIAL IV ONE (23:12)
[2022-01-27] MEDS ORDERED: SODIUM CHLORIDE 0.9% 1000ML 1,000 ML IV ONE (23:12)
[2022-01-27 23:29] LABS: Basophils # (auto) 0.01 K/uL (0-0.2); Basophils % (auto) 0.2 %; Eosinophils # (auto) 0.04 K/uL (0-0.50); Eosinophils % (auto) 0.7 %; Hematocrit (blood only) 36.4 % (34.1-44.9); Hemoglobin 11.7 g/dl (12.0-16.0); Immature Granulocytes # (auto) 0.02 K/uL (0.00-0.02); Immature Granulocytes % (auto) 0.4 %; Lymphocytes # (auto) 0.59 K/uL (1.2-3.4); Lymphocytes % (auto) 10.8 %; Mean Corpuscular Hemoglobin 29.3 pg (25.0-34.0); Mean Corpuscular Hgb Conc 32.1 g/dL (32.0-36.0); Monocytes # (auto) 0.21 K/uL (0.24-0.82); Monocytes % (auto) 3.8 %; Neutrophils % (auto) 84.1 %; Platelet Count 198 K/uL (130-400); RDW Coefficient of Variation 14.2 % (11.5-14.5); RDW Standard Deviation 47.6 fL (36.4-46.3); White Blood Count 5.47 K/ul (4.8-10.8)
[2022-01-27 23:34] LABS: Appearance Urine Cloudy (Clear); Bacteria Urine Automated Negative (Negative); Bilirubin Urine Negative (Negative); Blood Urine 2+ (Negative); Color Urine Yellow; Epithelial Cell Urine Auto >30 /lpf (0-5); Glucose Urine UA Negative (Negative); Ketones Urine Trace (Negative); Leukocyte Esterase Urine Trace (Negative); Nitrite Urine Negative (Negative); Protein Urine 1+ (Negative); RBC Urine Automated 0-4 /hpf (0-4); Specific Gravity Urine 1.018 (1.000-1.030); Urobilinogen Urine Negative (Negative)
[2022-01-27 23:51] LABS: Calcium Oxalate Crystals Urine Present (None Prsent); Cast Urine Automated 0 /lpf (0-5); Mucus Urine Present (None Prsent)
[2022-01-27 23:53] LABS: Alanine Aminotransferase 11 U/L (7-52); Albumin Level 3.2 gm/dl (3.4-5.0); Alkaline Phosphatase 70 U/L (34-104); Anion Gap 6 (3-11); Aspartate Aminotransferase 12 U/L (13-39); BUN Creatinine Ratio 10.7 (10-20); Bilirubin,Total 0.4 mg/dl (0.2-1.0); Blood Urea Nitrogen 9 mg/dl (6-23); Calcium 8.4 mg/dl (8.5-10.1); Carbon Dioxide 26 mmol/L (21-32); Chloride 104 mmol/L (98-107); Est GFR (African American) 96.6 ml/min; Est GFR (Non-African American) 83.3 ml/min; Globulin 3.3 gm/dl (2.5-4.0); Glucose 118 mg/dl (70-99(Fasting)); Lipase 24 U/L (11-82); Potassium 3.5 mmol/L (3.5-5.1); Sodium 136 mmol/L (136-145); Total Protein 6.5 gm/dl (6.0-8.3)
--- NOTE | 2022-01-27 23:53 | Emergency Department Note ---
Impression & Plan [facility] Provider Note NAME: CAMDEN MORA AGE: 46 SEX: F ARRIVES VIA: Walk-In INFORMANT: Patient ED PROVIDER(S): Viki Frias DO CHIEF COMPLAINT: Abdominal pain and nausea PLAN: Disposition: Admit to the [facility] for IV antibiotic therapy Condition: Fair MEDICAL DECISION MAKING: This is a 46-year-old female patient with a history of previous urinary tract infections who presents to the emergency department complaining of abdominal pain, nausea and back pain despite being on antibiotics for this urinary tract infection. The patient states this is the worst she has ever felt having a UTI. The patient has been taking cefdinir for the past 2 days but describes worsening symptoms. Urine culture was pansensitive from 2 days ago but symptoms continue to worsen. CT scan from 2 days ago showed evidence of cystitis with a sending findings in the right ureter. The patient was noted to be hypotensive here in the emergency department and was given IV crystalloid therapy and started on IV Zosyn. There was no significant leukocytosis and lactate/procalcitonin were both normal. [facility] and [facility] will evaluate for further management. Patient has failed outpatient therapy on cefdinir and will require IV antibiotic therapy as an inpatient. Triage Nursing notes reviewed and agree with them. Prior medical records reviewed Vital Signs: reviewed and unremarkable Differential diagnosis: Pyelonephritis, sepsis, cystitis, infected kidney stone ER treatment provided: IV normal saline bolus IV Toradol IV Zofran x2 IV Zosyn Diagnostics interpreted by me: Cardiac Monitoring: Normal Sinus rhythm at a rate of 86 Laboratory studies: See below HPI: 46/F arrives for evaluation of abdominal pain and nausea. Patient was diagnosed with UTI 2 days ago and started on cefdinir. Patient states that she is not getting any better, in fact, she is getting worse. She has developed hot and cold spells, increased thirst, decreased urination worsening abdominal pain and back pain. The patient has an extensive history of urinary tract infections and has been previously evaluated by urology and nephrology. ROS: See above HPI for pertinent positives & negatives. A total of 10 systems reviewed and were otherwise negative. PAST MEDICAL HISTORY:See Below PAST SURGICAL HISTORY:See Below FAMILY HISTORY:See Below SOCIAL HISTORY:Patient lives with her family; she does not smoke or drink alcohol. HOME MEDICATIONS:See list ALLERGIES:See list VITALS:See Below PHYSICAL EXAMINATION: HEENT: Head - normocephalic and atraumatic. Pupils are equal, round, and reactive to light. Extraocular eye muscles are intact, and sclera are anicteric. Nose - moist nasal mucosa without discharge. Mouth - moist buccal mucosa. Oropharynx is nonerythematous and there is no tonsillar exudate or edema noted. Neck: Supple; no cervical lymphadenopathy noted Heart: Regular rate and rhythm. There is a normal S1 and S2 with no murmurs, clicks, or gallops appreciated. Lungs: Clear to auscultation bilaterally with no wheezes, rales, or rhonchi. Abdomen: Soft, distended with diffuse abdominal pain that seems to be worse in the left upper and lower quadrants with good bowel sounds. There are no palpable pulsatile masses or hepatosplenomegaly. There is no guarding, rigidity, or rebound noted. Extremities: No evidence of cyanosis, clubbing, or edema. There are easily palpable peripheral pulses. Skin: warm and dry with good turgor and no rashes. ED COURSE: Times/Reassessments: 2304: Patient was evaluated in room B 10. A complete history and physical was performed. An IV lock was initiated and labs were drawn as above. A urine specimen was collected. An order was placed for continuous cardiac monitoring. She was in a normal sinus rhythm at a rate of 86. Patient was given 30 mg of IV Toradol, 4 mg of IV Zofran, and a liter of normal saline solution. Reviewed urine culture from just 2 days ago and it grew out E. coli which was pansensitive. Patient was given a dose of IV Zosyn. She continued to complain of significant nausea and was given a second dose of IV Zofran. I discussed the case with the [facility] Hospitalist and they will evaluate for further management. Viki Frias DO Past Med/Surg History Medical History Anemia hx iron infusions Depression with anxiety Disc disease, degenerative, lumbar or lumbosacral GERD (gastroesophageal reflux disease) History of kidney stones History of migraine History of small bowel obstruction History of syncope hx (pt states r/t to severe back pain) - last syncopal episode 1+ years ago Hypothyroidism Insomnia Lumbar radiculopathy Morbid obesity with BMI of 50.0-59.9, adult Neuropathy Osteoarthritis Sleep apnea CPAP Vitamin D deficiency Surgical History History of adenoidectomy History of appendectomy Removed during bowel resection surgery History of bariat[place] [facility] [place] Laproscopic converted to Open biliopancreatic diversion with duodenal switch History of bowel resection D/T SCAR TISSUE History of cardiac cath VERTIGO>OCTOBER 2017 (NO PROBLEMS) History of cholecystectomy History of colonoscopy History of cystoscopy History of esophagogastroduodenoscopy (EGD) History of lithotripsy S/P ureteral stent placement 06/04/2021: MAC. No issues per anesthesia postop progress note. 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 Beliefs That Will Affect Care: None marital status: Current Living Situation: Spouse current occupational status: employed current occupation: works at [email or web address] Other Information That Helps Us Care for You: No Feels Safe at Home: Yes Safety Concerns: Feels Safe At This Time Childhood Exposure to Second-Hand Smoke: Yes caffeine: No Dental Care, Regularly: Yes Physical Activity Frequency: 3-4 Times per Week Seatbelt Use: always Sunscreen Use: Yes Assistive Devices: CPAP and Wheelchair Allergies Allergies Allergy/AdvReac Type Severity Reaction Status Date / Time tamsulosin [From Flomax] Allergy Severe angioedema Verified 01/22/22 10:20 Home Meds Home Medications Medication Instructions Recorded Confirmed phytonadione (vitamin K1) 100 mcg 100 mcg PO QAM 08/03/19 01/22/22 tablet vitamin A 10,000 unit capsule 10,000 unit PO QAM 05/25/21 01/22/22 vitamin E 268 mg (400 unit) capsule 400 unit PO QAM 05/25/21 01/22/22 levothyroxine 25 mcg tablet 25 mcg PO QAM 06/29/21 01/22/22 (Synthroid) venlafaxine 150 mg 150 mg PO QAM 06/29/21 01/22/22 capsule,extended release 24 hr (Effexor XR) hydroxyzine HCl 25 mg tablet 25 mg PO HS PRN Insomnia 07/02/21 01/22/22 sumatriptan succinate 100 mg tablet See Rx Instructions PO .COMPLEX 07/02/21 01/22/22 PRN Migraine Headache mecobalamin (vitamin B12) 1,000 1,000 mcg sublingual QAM 10/27/21 01/22/22 mcg disintegrating tablet,sublingual Previous Rx's Medication Instructions Recorded levonorgestrel 0.15 mg-ethinyl 1 tab PO QAM #84 tabs 05/21/21 estradiol 0.03 mg tablet (Barb (28)) ondansetron 4 mg disintegrating See Rx Instructions .Route 11/05/21 tablet .COMPLEX #30 tabs cholecalciferol (vitamin D3) 1,250 50,000 unit PO WEEKLY 8 weeks #8 12/22/21 mcg (50,000 unit) capsule caps oxycodone 10 mg tablet 10 mg PO BID PRN pain #20 tabs 01/06/22 pantoprazole 40 mg tablet,delayed 40 mg PO DAILY #90 tabs 01/13/22 release (Protonix) pregabalin 200 mg capsule (Lyrica) 200 mg PO BID #60 caps 01/20/22 diclofenac sodium 1 % topical gel 2 g topical QID #100 grams 01/21/22 (Voltaren Arthritis Pain) cefdinir 300 mg capsule 300 mg PO BID #14 caps 01/25/22 fluconazole 150 mg tablet 150 mg PO ONCE PRN yeast infection 01/25/22 (Diflucan) #1 tab Results & Data (ED) Vital Signs Vital Signs - 24 hr 01/27/22 22:27 01/27/22 22:52 01/27/22 22:54 Temperature 36.1 C L 37.0 C Temperature Source Temporal Artery Scan Oral Pulse Rate 95 H 83 Pulse Rate from SpO2 Sensor Respiratory Rate 16 20 Respiratory Effort / Characteristics Non-Labored Spontaneous Respiratory Depth Normal Blood Pressure 121/77 Blood Pressure Mean 91 Blood Pressure Position Sitting Pulse Oximetry 97 Oxygen Delivery Method Room Air Sepsis Recent Fever Within 48 Hours No Sepsis New/Unexplained Change in Mental Status N/A Sepsis Action Taken by Nursing No Action Required 01/27/22 23:00 01/27/22 23:30 01/27/22 23:36 Temperature Temperature Source Pulse Rate 86 86 Pulse Rate from SpO2 Sensor Respiratory Rate 19 28 H Respiratory Effort / Characteristics Respiratory Depth Blood Pressure 92/70 L Blood Pressure Mean 77 Blood Pressure Position Pulse Oximetry Oxygen Delivery Method Sepsis Recent Fever Within 48 Hours Sepsis New/Unexplained Change in Mental Status Sepsis Action Taken by Nursing 01/27/22 23:36 01/28/22 00:31 01/28/22 01:01 Temperature Temperature Source Pulse Rate 86 80 81 Pulse Rate from SpO2 Sensor 85 80 79 Respiratory Rate 22 18 17 Respiratory Effort / Characteristics Respiratory Depth Blood Pressure 92/70 L 99/60 L 105/68 Blood Pressure Mean 77 73 80 Blood Pressure Position Pulse Oximetry 96 96 96 Oxygen Delivery Method Sepsis Recent Fever Within 48 Hours Sepsis New/Unexplained Change in Mental Status Sepsis Action Taken by Nursing 01/28/22 01:30 01/28/22 02:00 Temperature Temperature Source Pulse Rate 86 69 Pulse Rate from SpO2 Sensor 86 Respiratory Rate 15 20 Respiratory Effort / Characteristics Respiratory Depth Blood Pressure 108/73 Blood Pressure Mean 84 Blood Pressure Position Pulse Oximetry 97 Oxygen Delivery Method Sepsis Recent Fever Within 48 Hours Sepsis New/Unexplained Change in Mental Status Sepsis Action Taken by Nursing Laboratory Data Result diagrams: 01/27/22 22:52 01/27/22 22:52 Lab Results 01/27/22 01/27/22 01/27/22 Range/Units 22:52 22:52 22:52 WBC 5.47 (4.8-10.8) K/ul RBC 4.00 (3.93-5.22) M/uL Hgb 11.7 L (12.0-16.0) g/dl Hct 36.4 (34.1-44.9) % MCV 91.0 (80.0-100.0) fL MCH 29.3 (25.0-34.0) pg MCHC 32.1 (32.0-36.0) g/dL RDW Std Deviation 47.6 H (36.4-46.3) fL RDW Coeff of [place] 14.2 (11.5-14.5) % Plt Count 198 (130-400) K/uL MPV 11.0 (9.4-12.3) fL Immature Gran % (Auto) 0.4 % Neut % (Auto) 84.1 % Lymph % (Auto) 10.8 % [place] % (Auto) 3.8 % Eos % (Auto) 0.7 % Baso % (Auto) 0.2 % Neut # (Auto) 4.60 (1.4-6.5) K/uL Lymph # (Auto) 0.59 L (1.2-3.4) K/uL [place] # (Auto) 0.21 L (0.24-0.82) K/uL Eos # (Auto) 0.04 (0-0.50) K/uL Baso # (Auto) 0.01 (0-0.2) K/uL Immature Gran # (Auto) 0.02 (0.00-0.02) K/uL Sodium 136 (136-145) mmol/L Potassium 3.5 (3.5-5.1) mmol/L Chloride 104 (98-107) mmol/L Carbon Dioxide 26 (21-32) mmol/L Anion Gap 6 (3-11) BUN 9 (6-23) mg/dl Creatinine 0.84 (0.6-1.2) mg/dl Est Cr Clr Drug Dosing Not Reportable Est GFR ( Amer) 96.6 ml/min Est GFR (Non-Af Amer) 83.3 ml/min BUN/Creatinine Ratio 10.7 (10-20) Glucose 118 H (70-99(Fasting)) mg/dl Lactate (0.4-2.0) mmol/L Calcium 8.4 L (8.5-10.1) mg/dl Total Bilirubin 0.4 (0.2-1.0) mg/dl AST 12 L (13-39) U/L ALT 11 (7-52) U/L Alkaline Phosphatase 70 (34-104) U/L Total Protein 6.5 (6.0-8.3) gm/dl Albumin 3.2 L (3.4-5.0) gm/dl Globulin 3.3 (2.5-4.0) gm/dl Albumin/Globulin Ratio 1.0 (0.9-2) Lipase 24 (11-82) U/L Procalcitonin (0-0.5) ng/ml Urine Color Yellow Urine Appearance Cloudy A (Clear) Urine pH 6.0 (4.5-7.5) Ur Specific [place] 1.018 (1.000-1.030) Urine Protein 1+ H (Negative) Urine Glucose (UA) Negative (Negative) Urine Ketones Trace H (Negative) Urine Blood 2+ H (Negative) Urine Nitrite Negative (Negative) Urine Bilirubin Negative (Negative) Urine Urobilinogen Negative (Negative) Ur Leukocyte Esterase Trace H (Negative) Urine WBC (Auto) 10-30 H (0-5) /hpf Urine RBC (Auto) 0-4 (0-4) /hpf U Hyaline Cast (Auto) 0 (0-5) /lpf U Epithel Cells (Auto) >30 H (0-5) /lpf Urine Bacteria (Auto) Negative (Negative) Ur Renal Epithelial Cell Not Reportable Urine Crystals Not Reportable Calcium Oxalate Crystal Present A (None Prsent) Urine Mucus Present A (None Prsent) Urine Yeast Not Reportable SARS-CoV-2, RNA, NAAT (NEGATIVE) 01/27/22 01/27/22 01/28/22 Range/Units 22:52 23:50 00:14 WBC (4.8-10.8) K/ul RBC (3.93-5.22) M/uL Hgb (12.0-16.0) g/dl Hct (34.1-44.9) % MCV (80.0-100.0) fL MCH (25.0-34.0) pg MCHC (32.0-36.0) g/dL RDW Std Deviation (36.4-46.3) fL RDW Coeff of [place] (11.5-14.5) % Plt Count (130-400) K/uL MPV (9.4-12.3) fL Immature Gran % (Auto) % Neut % (Auto) % Lymph % (Auto) % [place] % (Auto) % Eos % (Auto) % Baso % (Auto) % Neut # (Auto) (1.4-6.5) K/uL Lymph # (Auto) (1.2-3.4) K/uL [place] # (Auto) (0.24-0.82) K/uL Eos # (Auto) (0-0.50) K/uL Baso # (Auto) (0-0.2) K/uL Immature Gran # (Auto) (0.00-0.02) K/uL Sodium (136-145) mmol/L Potassium (3.5-5.1) mmol/L Chloride (98-107) mmol/L Carbon Dioxide (21-32) mmol/L Anion Gap (3-11) BUN (6-23) mg/dl Creatinine (0.6-1.2) mg/dl Est Cr Clr Drug Dosing Est GFR ( Amer) ml/min Est GFR (Non-Af Amer) ml/min BUN/Creatinine Ratio (10-20) Glucose (70-99(Fasting)) mg/dl Lactate 0.6 (0.4-2.0) mmol/L Calcium (8.5-10.1) mg/dl Total Bilirubin (0.2-1.0) mg/dl AST (13-39) U/L ALT (7-52) U/L Alkaline Phosphatase (34-104) U/L Total Protein (6.0-8.3) gm/dl Albumin (3.4-5.0) gm/dl Globulin (2.5-4.0) gm/dl Albumin/Globulin Ratio (0.9-2) Lipase (11-82) U/L Procalcitonin 0.15 (0-0.5) ng/ml Urine Color Urine Appearance (Clear) Urine pH (4.5-7.5) Ur Specific [place] (1.000-1.030) Urine Protein (Negative) Urine Glucose (UA) (Negative) Urine Ketones (Negative) Urine Blood (Negative) Urine Nitrite (Negative) Urine Bilirubin (Negative) Urine Urobilinogen (Negative) Ur Leukocyte Esterase (Negative) Urine WBC (Auto) (0-5) /hpf Urine RBC (Auto) (0-4) /hpf U Hyaline Cast (Auto) (0-5) /lpf U Epithel Cells (Auto) (0-5) /lpf Urine Bacteria (Auto) (Negative) Ur Renal Epithelial Cell Urine Crystals Calcium Oxalate Crystal (None Prsent) Urine Mucus (None Prsent) Urine Yeast SARS-CoV-2, RNA, NAAT NEGATIVE (NEGATIVE) Administered Medications Sodium Chloride (Nss 1000ml) 1,000 mls @ 125 mls/hr IV .Q8H KHADRA Stop: 01/28/22 11:33 Last Admin: 01/28/22 04:01 Dose: 125 mls/hr Documented By: BCM Discontinued Medications Sodium Chloride (Nss 1000ml) 1,000 mls @ 999 mls/hr IV .Q1H1M ONE Stop: 01/28/22 00:12 Last Infusion: 01/28/22 00:46 Dose: 0 mls/hr Documented By: Admin: 01/27/22 23:24 Dose: 999 mls/hr Documented By: BS Piperacillin Sod/Tazobactam Sod (Zosyn) 4.5 gm in 120 mls @ 240 mls/hr IV NOW ONE Stop: 01/28/22 00:32 Last Infusion: 01/28/22 00:46 Dose: 0 mls/hr Documented By: Admin: 01/28/22 00:16 Dose: 240 mls/hr Documented By: RASHEED Ketorolac Tromethamine (Ketorolac 30 Mg/Ml Vial) 30 mg IV NOW ONE Stop: 01/27/22 23:13 Last Admin: 01/27/22 23:24 Dose: 30 mg Documented By: BS Morphine Sulfate (Morphine Sulfate 2 Mg/Ml Carp) 1 mg IV NOW STA Stop: 01/28/22 01:36 Last Admin: 01/28/22 02:03 Dose: 1 mg Documented By: RASHEED Ondansetron HCl (Ondansetron Inj 2 Mg/Ml 2 Ml Vial) 4 mg IV NOW STA Stop: 01/27/22 23:13 Last Admin: 01/27/22 23:24 Dose: 4 mg Documented By: RASHEED Ondansetron HCl (Ondansetron Inj 2 Mg/Ml 2 Ml Vial) 4 mg IV NOW STA Stop: 01/28/22 00:56 Last Admin: 01/28/22 01:23 Dose: 4 mg Documented By: BS Discharge Plan Visit Data Chief Complaint: Urinary Symptoms Stated Complaint: UTI, CHILLS, SWEATS, NAUSEA ED Provider: Viki Frias Discharge Problem: Pyelonephritis Patient Disposition: Admitted As Inpatient Discharge Instructions Interventions: ED Discharge Assessment Last Done: 01/28/22 03:09
[2022-01-28] MEDS ORDERED: PIPERACILLIN/TAZOBACTAM 4.5 GM/120 ML BAG IV ONE (00:03)
--- NOTE | 2022-01-28 00:32 | History & Physical Report ---
Date of Service January 28, 2022 Assessment & Plan (1) UTI (urinary tract infection): Plan: 46yo female with a history of nephrolithiasis, hypothyroidism, STEPHEN, back pain, MDD, and frequent UTIs presents with a one-week history of pain with urination, urinary frequency, and a two-day history of right-sided flank pain. UTI Patient with UTI diagnosed earlier this week, unimproved on cefdinir on an outpatient basis UA consistent with UTI Zosyn given in ED (x1 dose); continue until urine culture/sensitivities result Blood, urine cultures pending NSS @ 125mL/hr (x1 bag ordered) Antiemetics as-needed, pain control as-needed Trend CBC, BMP Back pain: continue home regimen Hypothyroidism: continue home regimen MDD: continue home regimen Migraine: continue home regimen FEN: HH diet, NSS @ 125mL/hr (x1 bag ordered) Code status: full code DVT ppx: SCDs Dispo: med/surg (2) Migraines: (3) Hypothyroidism: (4) Depression with anxiety: (5) Disc disease, degenerative, lumbar or lumbosacral: (6) Nausea & vomiting: (7) STEPHEN (obstructive sleep apnea): History of Present Illness Primary Care Provider: Armando Holder DO 46yo female with a history of nephrolithiasis, hypothyroidism, STEPHEN, back pain, MDD, and frequent UTIs presents with a one-week history of pain with urination, urinary frequency, and a two-day history of right-sided flank pain. Patient also reports associated nausea, five episodes of nonbloody nonbilious vomiting, and hot/cold spells. Patient presented to the ED two days ago with urinary symptoms and was discharged with a prescription for oral cefdinir. Unfortunately, patient's symptoms continued to worsen. Patient has since developed mild right flank tenderness. No other new symptoms. Patient denies vision changes, CP, palpitations, SOB, edema, hematochezia, melena, lightheadedness, numbness, tingling, weakness, or other symptoms. Denies and recent travel. Upon arrival, vitals were notable for mildly soft BP (99/60 which has since improved to 100s/70s); no tachycardia, no tachypnea, patient afebrile, spO2 adequate on room air. UA was notable for cloudy appearance, 1+ protein, trace ketones, 2+ blood, trace leuk esterase, 10-30 WBCs, calcium oxalate crystals, and mucus. Covid PCR was negative. In the ED, patient received an NSS 1L bolus (x1), zosyn (x1 dose), ketorolac 30mg IV (x1), and zofran 4mg IV (x2). Surrogate decision-maker in case of an emergency: Crispin Álvarez (cell: [phone]) Allergies Allergy/AdvReac Type Severity Reaction Status Date / Time tamsulosin [From Flomax] Allergy Severe angioedema Verified 01/22/22 10:20 Home Medications Medication Instructions Recorded Confirmed Type phytonadione (vitamin K1) 100 mcg 100 mcg PO QAM 08/03/19 01/22/22 History tablet levonorgestrel 0.15 mg-ethinyl 1 tab PO QAM #84 tabs 05/21/21 01/22/22 Rx estradiol 0.03 mg tablet (Barb (28)) vitamin A 10,000 unit capsule 10,000 unit PO QAM 05/25/21 01/22/22 History vitamin E 268 mg (400 unit) capsule 400 unit PO QAM 05/25/21 01/22/22 History levothyroxine 25 mcg tablet 25 mcg PO QAM 06/29/21 01/22/22 History (Synthroid) venlafaxine 150 mg 150 mg PO QAM 06/29/21 01/22/22 History capsule,extended release 24 hr (Effexor XR) hydroxyzine HCl 25 mg tablet 25 mg PO HS PRN Insomnia 07/02/21 01/22/22 History sumatriptan succinate 100 mg tablet See Rx Instructions PO .COMPLEX 07/02/21 01/22/22 History PRN Migraine Headache mecobalamin (vitamin B12) 1,000 1,000 mcg sublingual QAM 10/27/21 01/22/22 History mcg disintegrating tablet,sublingual ondansetron 4 mg disintegrating See Rx Instructions .Route 11/05/21 01/22/22 Rx tablet .COMPLEX #30 tabs cholecalciferol (vitamin D3) 1,250 50,000 unit PO WEEKLY 8 weeks #8 12/22/21 01/22/22 Rx mcg (50,000 unit) capsule caps oxycodone 10 mg tablet 10 mg PO BID PRN pain #20 tabs 01/06/22 01/22/22 Rx pantoprazole 40 mg tablet,delayed 40 mg PO DAILY #90 tabs 01/13/22 01/22/22 Rx release (Protonix) pregabalin 200 mg capsule (Lyrica) 200 mg PO BID #60 caps 01/20/22 01/22/22 Rx diclofenac sodium 1 % topical gel 2 g topical QID #100 grams 01/21/22 01/22/22 Rx (Voltaren Arthritis Pain) cefdinir 300 mg capsule 300 mg PO BID #14 caps 01/25/22 Rx fluconazole 150 mg tablet 150 mg PO ONCE PRN yeast infection 01/25/22 Rx (Diflucan) #1 tab Past Med/Surg History Medical History Anemia hx iron infusions Depression with anxiety Disc disease, degenerative, lumbar or lumbosacral GERD (gastroesophageal reflux disease) History of kidney stones History of migraine History of small bowel obstruction History of syncope hx (pt states r/t to severe back pain) - last syncopal episode 1+ years ago Hypothyroidism Insomnia Lumbar radiculopathy Morbid obesity with BMI of 50.0-59.9, adult Neuropathy Osteoarthritis Sleep apnea CPAP Vitamin D deficiency Surgical History History of adenoidectomy History of appendectomy Removed during bowel resection surgery History of bariatric surgery 05/14/2019 at [facility], Dr. Young - Laproscopic converted to Open biliopancreatic diversion with duodenal switch History of bowel resection D/T SCAR TISSUE History of cardiac cath VERTIGO>OCTOBER 2017 (NO PROBLEMS) History of cholecystectomy History of colonoscopy History of cystoscopy History of esophagogastroduodenoscopy (EGD) History of lithotripsy S/P ureteral stent placement 06/04/2021: MAC. No issues per anesthesia postop progress note. 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 Beliefs That Will Affect Care: None marital status: Current Living Situation: Spouse current occupational status: employed current occupation: works at [employer] Other Information That Helps Us Care for You: No Feels Safe at Home: Yes Safety Concerns: Feels Safe At This Time Childhood Exposure to Second-Hand Smoke: Yes caffeine: No Dental Care, Regularly: Yes Physical Activity Frequency: 3-4 Times per Week Seatbelt Use: always Sunscreen Use: Yes Assistive Devices: CPAP, Walker and Wheelchair Assistive Devices Comment: equipment thru [facility] Physical Exam Physical Exam: Constitutional: uncomfortable-appearing, no acute distress HEENT: NCAT, no conjunctival injection CV: regular rhythm, no murmur appreciated, extremities well-perfused, no LE edema Resp: CTABL, no wheezes/rales/rhonchi appreciated, no increased work of breathing GI: soft, nondistended, mild generalized tenderness appreciated, BS normoactive MSK: mild right flank tenderness appreciated Skin: warm, dry, no rash appreciated Neuro: alert, oriented, no focal neurologic deficit appreciated Results & Data Results & Data ([facility]) Vital Signs (Past 12 Hours) Vital Signs Temp Pulse Resp BP Pulse Ox O2 Del Method 01/27/22 23:36 86 22 92/70 L 96 01/27/22 23:36 92/70 L 01/27/22 23:30 86 28 H 01/27/22 23:00 86 19 01/27/22 22:54 83 20 01/27/22 22:52 37.0 C 01/27/22 22:27 36.1 C L 95 H 16 121/77 97 Room Air Supervising Physician Co-Signing Physician Notes Attending addendum: I have physically seen this patient, have supervised the medical residents activities, and agree with the H&P unless as otherwise noted. Assessment and Plan: Right-sided pyelonephritis/cystitis- Failure of outpatient treatment with cefdinir E. coli infection with real sensitivity noted on 01/25 Zosyn IV as noted, due to possible differential between in vitro and in vivo sensitivities IV fluids, NSS at 125 mils per hour x1 L Zofran 4 mg IV every 6 hours as needed Follow serial CBC with differential and BMP Remaining orders and notations as noted Resident Activity Tracking Resident Involvement: Resident Care Provided and Milieu Manager Coverage Note Care Provided: Adult Hospital Medicine
[2022-01-28] MEDS ORDERED: ONDANSETRON INJ 2 MG/ML 2 ML VIAL IV STA (00:55)
[2022-01-28] MEDS ORDERED: MoRPHine SULFATE 2 MG/ML CARP IV STA ×2 (01:35→04:12)
[2022-01-28] MEDS ORDERED: PIPERACILLIN/TAZOBACTAM 3.375 GM in DEXTROSE 5% 100 ML IV SCH (03:00)
[2022-01-28] MEDS ORDERED: MELATONIN 3 MG TAB PO PRN (03:34)
[2022-01-28] MEDS ORDERED: SODIUM CHLORIDE 0.9% 1000ML 1,000 ML IV SCH (03:34)
[2022-01-28] MEDS ORDERED: PROCHLORPERAZINE 10 MG in SYRINGE 8 ML IV ONE (04:12)
[2022-01-28] MEDS: ACETAMINOPHEN 500 MG TAB PO SCH ×4 (04:46→21:06)
[2022-01-28] MEDS: LEVOTHYROXINE SODIUM 25 MCG TABLET PO SCH (04:47)
[2022-01-28] MEDS ORDERED: PIPERACILLIN/TAZOBACTAM 4.5 GM in DEXTROSE 5% 100 ML IV SCH (06:00)
[2022-01-28 07:32] LABS: Basophils # (auto) 0.02 K/uL (0-0.2); Basophils % (auto) 0.4 %; Eosinophils # (auto) 0.05 K/uL (0-0.50); Eosinophils % (auto) 1.1 %; Hematocrit (blood only) 34.9 % (34.1-44.9); Hemoglobin 11.2 g/dl (12.0-16.0); Immature Granulocytes # (auto) 0.02 K/uL (0.00-0.02); Immature Granulocytes % (auto) 0.4 %; Lymphocytes # (auto) 0.47 K/uL (1.2-3.4); Lymphocytes % (auto) 10.4 %; Mean Corpuscular Hemoglobin 29.3 pg (25.0-34.0); Mean Corpuscular Hgb Conc 32.1 g/dL (32.0-36.0); Mean Corpuscular Volume 91.4 fL (80.0-100.0); Mean Platelet Volume 10.4 fL (9.4-12.3); Monocytes # (auto) 0.29 K/uL (0.24-0.82); Monocytes % (auto) 6.4 %; Neutrophils # (auto) 3.69 K/uL (1.4-6.5); Neutrophils % (auto) 81.3 %; Platelet Count 172 K/uL (130-400); RDW Coefficient of Variation 14.1 % (11.5-14.5); RDW Standard Deviation 47.3 fL (36.4-46.3); Red Blood Count 3.82 M/uL (3.93-5.22); White Blood Count 4.54 K/ul (4.8-10.8)
[2022-01-28] MEDS: SODIUM CHLORIDE 0.9% 1000ML 1,000 ML IV SCH ×3 (07:50→22:24)
[2022-01-28] MEDS: VENLAFAXINE HCL XR 150 MG CAPXR PO SCH (07:51)
[2022-01-28] MEDS: PANTOprazole 40 MG TAB PO SCH (07:51)
[2022-01-28 07:57] LABS: BUN Creatinine Ratio 10.4 (10-20); Calcium 7.9 mg/dl (8.5-10.1); Creatinine Clr Calc Pharmacy 131.8 ml/min; Est GFR (African American) 107.3 ml/min; Est GFR (Non-African American) 92.6 ml/min; Magnesium 1.7 mg/dl (1.7-2.4); Potassium 3.4 mmol/L (3.5-5.1)
[2022-01-28 08:33] LABS: Pregnancy Test, Urine Negative (Negative)
[2022-01-28] MEDS ORDERED: POTASSIUM CHLORIDE CRTAB 20 MEQ TABCR PO STA (09:46)
[2022-01-28] MEDS: cefTRIAXone SODIUM 2,000 MG in DEXTROSE 5% 50 ML IV SCH (10:16)
[2022-01-28] MEDS: ONDANSETRON INJ 2 MG/ML 2 ML VIAL IV PRN (11:54)
[2022-01-28] MEDS: MoRPHine SULFATE 2 MG/ML CARP IV PRN ×2 (11:54→18:24)
--- NOTE | 2022-01-28 12:50 | History & Physical Bridge Note ---
Date of Service January 28, 2022 History & Physical Bridge Note I have examined the patient, reviewed the History & Physical and in the interval since the performance of the History & Physical I have noted the following changes of clinical significance: Organism is Rocephin sensitive; switch; has ongoing pain; abdominal hernia appears uncomplicated, abdomen nonsurgicalantibiotics, fluids, supportive treatment; replace potassium
--- NOTE | 2022-01-28 19:55 | Billing Data ---
Date of Service January 28, 2022 Coding Level of Care Code INT OBSERVATION CARE 70M LVL 3
[2022-01-29] MEDS: MoRPHine SULFATE 2 MG/ML CARP IV PRN ×4 (00:26→20:52)
[2022-01-29] MEDS: ONDANSETRON INJ 2 MG/ML 2 ML VIAL IV PRN ×4 (00:30→20:52)
[2022-01-29] MEDS: LEVOTHYROXINE SODIUM 25 MCG TABLET PO SCH (06:03)
[2022-01-29] MEDS: ACETAMINOPHEN 500 MG TAB PO SCH ×3 (06:04→22:32)
[2022-01-29] MEDS: SODIUM CHLORIDE 0.9% 1000ML 1,000 ML IV SCH ×2 (06:05→14:32)
[2022-01-29] MEDS: VENLAFAXINE HCL XR 150 MG CAPXR PO SCH (08:01)
[2022-01-29] MEDS: PANTOprazole 40 MG TAB PO SCH (08:01)
[2022-01-29 08:34] LABS: Basophils # (auto) 0.02 K/uL (0-0.2); Basophils % (auto) 0.5 %; Eosinophils % (auto) 2.5 %; Hematocrit (blood only) 34.9 % (34.1-44.9); Hemoglobin 11.3 g/dl (12.0-16.0); Immature Granulocytes # (auto) 0.02 K/uL (0.00-0.02); Immature Granulocytes % (auto) 0.5 %; Lymphocytes # (auto) 0.67 K/uL (1.2-3.4); Mean Corpuscular Hemoglobin 29.4 pg (25.0-34.0); Mean Corpuscular Hgb Conc 32.4 g/dL (32.0-36.0); Mean Corpuscular Volume 90.9 fL (80.0-100.0); Mean Platelet Volume 10.6 fL (9.4-12.3); Monocytes # (auto) 0.26 K/uL (0.24-0.82); Monocytes % (auto) 6.6 %; Neutrophils # (auto) 2.86 K/uL (1.4-6.5); Neutrophils % (auto) 72.9 %; Platelet Count 174 K/uL (130-400); RDW Coefficient of Variation 13.9 % (11.5-14.5); RDW Standard Deviation 46.4 fL (36.4-46.3); Red Blood Count 3.84 M/uL (3.93-5.22); White Blood Count 3.93 K/ul (4.8-10.8)
[2022-01-29 09:01] LABS: Albumin Globulin Ratio 0.9 (0.9-2); Albumin Level 2.9 gm/dl (3.4-5.0); Bilirubin,Total 0.2 mg/dl (0.2-1.0); Calcium 8.2 mg/dl (8.5-10.1); Creatinine Clr Calc Pharmacy 142.9 ml/min; Est GFR (African American) 118.4 ml/min; Est GFR (Non-African American) 102.1 ml/min; Globulin 3.1 gm/dl (2.5-4.0); Magnesium 1.7 mg/dl (1.7-2.4); Phosphorus 2.9 mg/dl (2.5-4.9); Potassium 3.6 mmol/L (3.5-5.1)
[2022-01-29] MEDS: cefTRIAXone SODIUM 2,000 MG in DEXTROSE 5% 50 ML IV SCH (10:29)
--- NOTE | 2022-01-29 15:39 | Hospitalist Progress Note ---
Date of Service January 29, 2022 Assessment & Plan (1) UTI (urinary tract infection): Plan: Doing better; continue Rocephin, observe 1 more day since the recurrence of symptoms after outpatient treatment Stop IV fluids (2) Migraines: Plan: Home treatment (3) Hypothyroidism: Plan: Home treatment (4) Depression with anxiety: Plan: Home treatmentvery good affect (5) Disc disease, degenerative, lumbar or lumbosacral: Plan: Nonacute issue (6) Morbidly obese: Plan: Contributes to complexitylifestyle modification Plan Follow mild anemia and leukocytopenia Admission and Anticipated Discharge Date Admission Date: January 28, 2022 Subjective Follow-up of presentation with abdominal patientdoing much better Physical Exam Physical Exam: Constitutional and general: No acute distress, looks biologic age Head and face: No puffiness, atraumatic Eyes: No scleral icterus, extraocular movements normal Neck: Supple, no JVD Musculoskeletal: No acute joint swelling, no bony abnormalities Skin/dermatologic/integument: No rash, no purpura Hematologic and lymphatic: pallor +, no petechia Gastrointestinal/abdomen: distended, soft, nonacute; uncomplicated hernia noted Neurologic: Cranial nerves intact, nonfocal Psychiatry: Awake, alert, pleasant, communicative Cardiovascular: Heart rhythm regular, no rub, no murmur, no gallop Respiratory: Chest movements equal, no use of accessory muscles, no adventitious sounds Extremities: No edema, no cyanosis Results & Data Results & Data ([facility]) Vital Signs (Past 12 Hours) Vital Signs Temp Pulse Resp BP BP Pulse Ox O2 Del Method 01/29/22 11:23 36.6 C 95 H 16 149/86 H 92 Room Air 01/29/22 08:45 37.0 C 64 18 130/80 94 Room Air Laboratory Results Laboratory Results - last 24 hr 01/29/22 01/29/22 08:14 08:14 WBC 3.93 L RBC 3.84 L Hgb 11.3 L Hct 34.9 MCV 90.9 MCH 29.4 MCHC 32.4 RDW Std Deviation 46.4 H RDW Coeff of [place] 13.9 Plt Count 174 MPV 10.6 Immature Gran % (Auto) 0.5 Neut % (Auto) 72.9 Lymph % (Auto) 17.0 [place] % (Auto) 6.6 Eos % (Auto) 2.5 Baso % (Auto) 0.5 Neut # (Auto) 2.86 Lymph # (Auto) 0.67 L [place] # (Auto) 0.26 Eos # (Auto) 0.10 Baso # (Auto) 0.02 Immature Gran # (Auto) 0.02 Sodium 138 Potassium 3.6 Chloride 106 Carbon Dioxide 26 Anion Gap 6 BUN 6 Creatinine 0.71 Est Cr Clr Drug Dosing 142.9 Est GFR ( Amer) 118.4 Est GFR (Non-Af Amer) 102.1 Fasting Glucose 124 H Calcium 8.2 L Phosphorus 2.9 Magnesium 1.7 Total Bilirubin 0.2 AST 10 L ALT 9 Alkaline Phosphatase 55 Total Protein 6.0 Albumin 2.9 L Globulin 3.1 Albumin/Globulin Ratio 0.9 PG Care Time/CCT Total # of Minutes Spent Total Time Spent with Patient: Total time spent is greater than 50% in coordination of care (as documented) at patient's floor/unit and/or counseling patient: Coding Level of Care Code 91615 Subseq Obs Care Lvl 2 Diagnoses UTI (urinary tract infection) N39.0 Migraines G43.909 Hypothyroidism E03.9 Depression with anxiety F41.8 Disc disease, degenerative, lumbar or lumbosacral M51.37 Morbidly obese E66.01
[2022-01-29] MEDS: ENOXAPARIN INJ 40 MG/0.4 ML SYR SQ SCH (17:15)
[2022-01-30] MEDS: ONDANSETRON INJ 2 MG/ML 2 ML VIAL IV PRN (03:05)
[2022-01-30] MEDS: MoRPHine SULFATE 2 MG/ML CARP IV PRN (03:05)
[2022-01-30] MEDS: ENOXAPARIN INJ 40 MG/0.4 ML SYR SQ SCH (06:07)
[2022-01-30] MEDS: ACETAMINOPHEN 500 MG TAB PO SCH (06:09)
[2022-01-30] MEDS: LEVOTHYROXINE SODIUM 25 MCG TABLET PO SCH (06:10)
[2022-01-30] MEDS: PANTOprazole 40 MG TAB PO SCH (08:08)
[2022-01-30] MEDS: VENLAFAXINE HCL XR 150 MG CAPXR PO SCH (08:08)
[2022-01-30 08:11] LABS: Basophils # (auto) 0.02 K/uL (0-0.2); Basophils % (auto) 0.5 %; Eosinophils # (auto) 0.13 K/uL (0-0.50); Eosinophils % (auto) 3.1 %; Hemoglobin 11.7 g/dl (12.0-16.0); Immature Granulocytes # (auto) 0.01 K/uL (0.00-0.02); Immature Granulocytes % (auto) 0.2 %; Lymphocytes % (auto) 23.7 %; Mean Corpuscular Hemoglobin 29.3 pg (25.0-34.0); Mean Corpuscular Hgb Conc 31.6 g/dL (32.0-36.0); Mean Corpuscular Volume 92.7 fL (80.0-100.0); Mean Platelet Volume 10.8 fL (9.4-12.3); Monocytes # (auto) 0.31 K/uL (0.24-0.82); Monocytes % (auto) 7.3 %; Neutrophils # (auto) 2.75 K/uL (1.4-6.5); Neutrophils % (auto) 65.2 %; Platelet Count 218 K/uL (130-400); RDW Coefficient of Variation 13.7 % (11.5-14.5); RDW Standard Deviation 46.3 fL (36.4-46.3); Red Blood Count 3.99 M/uL (3.93-5.22); White Blood Count 4.22 K/ul (4.8-10.8)
[2022-01-30 08:53] LABS: Bilirubin,Total 0.2 mg/dl (0.2-1.0); Calcium 8.5 mg/dl (8.5-10.1); Creatinine Clr Calc Pharmacy 122.3 ml/min; Est GFR (Non-African American) 84.6 ml/min; Globulin 3.1 gm/dl (2.5-4.0); Magnesium 1.9 mg/dl (1.7-2.4); Phosphorus 3.1 mg/dl (2.5-4.9); Potassium 3.8 mmol/L (3.5-5.1); Total Protein 6.1 gm/dl (6.0-8.3)
[2022-01-30] MEDS: cefTRIAXone SODIUM 2,000 MG in DEXTROSE 5% 50 ML IV SCH (09:46)
--- NOTE | 2022-01-30 10:21 | Discharge Summary ---
Date of Service January 30, 2022 Admission HPI Per Admitting Provider 46yo female with a history of nephrolithiasis, hypothyroidism, STEPHEN, back pain, MDD, and frequent UTIs presents with a one-week history of pain with urination, urinary frequency, and a two-day history of right-sided flank pain. Patient also reports associated nausea, five episodes of nonbloody nonbilious vomiting, and hot/cold spells. Patient presented to the ED two days ago with urinary symptoms and was discharged with a prescription for oral cefdinir. Unfortunately, patient's symptoms continued to worsen. Patient has since developed mild right flank tenderness. No other new symptoms. Patient denies vision changes, CP, palpitations, SOB, edema, hematochezia, melena, lightheadedness, numbness, tingling, weakness, or other symptoms. Denies and recent travel. Upon arrival, vitals were notable for mildly soft BP (99/60 which has since improved to 100s/70s); no tachycardia, no tachypnea, patient afebrile, spO2 adequate on room air. UA was notable for cloudy appearance, 1+ protein, trace ketones, 2+ blood, trace leuk esterase, 10-30 WBCs, calcium oxalate crystals, and mucus. Covid PCR was negative. In the ED, patient received an NSS 1L bolus (x1), zosyn (x1 dose), ketorolac 30mg IV (x1), and zofran 4mg IV (x2). Surrogate decision-maker in case of an emergency: Crispin Álvarez (cell: [phone]) Principal Diagnosis Pyelonephritis Discharge Exam No acute distress; looks very well Abdomen benign Vital Signs Temp Pulse Pulse Resp BP Pulse Ox O2 Del Method 01/30/22 06:34 36.6 C 72 20 128/84 96 Room Air 01/29/22 23:00 Room Air, CPAP 01/29/22 23:15 66 16 97 01/29/22 23:02 36.5 C 67 20 121/81 93 Room Air 01/29/22 22:37 Room Air 01/29/22 11:23 36.6 C 95 H 16 149/86 H 92 Room Air FiO2 01/30/22 06:34 01/29/22 23:00 01/29/22 23:15 21 01/29/22 23:02 01/29/22 22:37 01/29/22 11:23 Intake and Output 01/29/22 01/30/22 01/30/22 22:59 06:59 14:59 Intake Total 243.75 / 1533.75 220 / 1533.75 Balance 243.75 / 1533.75 220 / 1533.75 Intake: IV 243.75 / 1313.75 Sodium Chloride 0.9% 1000ML 1, 243.75 / 1243.75 000 ml @ 125 mls/hr IV .Q8H [facility] Rx#:[id number] Oral Other: # Unmeasured Voids 1 Discharge Data Allergies Allergy/AdvReac Type Severity Reaction Status Date / Time tamsulosin [From Flomax] Allergy Severe angioedema Verified 01/22/22 10:20 Consultations 01/28/22 00:58 ED Decision to Admit Stat Hospital Course (1) UTI (urinary tract infection): Picture consistent with right-sided pyelonephritis; improved; wants to go home; discharge with Levaquin to complete courseexcellent oral bioavailability (2) Migraines: Home treatment (3) Hypothyroidism: Home treatment (4) Depression with anxiety: Home treatmentvery good affect (5) Disc disease, degenerative, lumbar or lumbosacral: Nonacute issue (6) Morbidly obese: Contributes to complexitylifestyle modification Plan OSAresume home CPAP at discharge should obtain follow-up CBC with PCP to follow mild anemia and mild leukopenia Total Time Total Time Spent Total Time Spent (In Minutes): 32 Discharge Plan Discharge Items Patient Disposition: Home - Self-Care Reason For Visit: URINARY SYMPTOMS Discharge Diagnosis: UTI Activity: Resume your previous activity Non-emergency contact: Primary Care Provider Call non-emergency contact if: your symptoms worsen Follow-up/Referrals: Armando Holder DO [Primary Care Provider] - Diet: Regular Addtl Attending Provider Instructions: Follow-up with your primary care doctor in about a week; follow-up complete blood count with your doctor Pending Studies at Discharge: Yes Studies:: Final blood cultures Stand-Alone Forms: [employer], Smoking Cessation Medications and DC Order Prescriptions: New levofloxacin 750 mg tablet 750 mg PO DAILY 5 Days Qty: 5 0RF Rx Instructions: Start from 01-31-2022 Continued levonorgestrel-ethinyl estrad [[place] (28)] 0.15-0.03 mg tablet 1 tab PO QAM Qty: 84 11RF ondansetron 4 mg tablet,disintegrating See Rx Instructions .ROUTE .COMPLEX Qty: 30 0RF Dose Instruction: dissolve 1 tablet ON TONGUE every 8 hours if needed for nausea OR vomiting Rx Instructions: dissolve 1 tablet ON TONGUE every 8 hours if needed for nausea OR vomiting oxycodone 10 mg tablet 10 mg PO BID PRN (Reason: pain) Qty: 20 0RF diclofenac sodium [Voltaren Arthritis Pain] 1 % gel 2 g topical QID Qty: 100 2RF Rx Instructions: apply to single elbow, wrist or hand; for hand includes palm/fingers/back of hand pantoprazole [Protonix] 40 mg tablet,delayed release (DR/EC) 40 mg PO DAILY Qty: 90 3RF pregabalin [Lyrica] 200 mg capsule 200 mg PO BID Qty: 60 0RF cholecalciferol (vitamin D3) 1,250 mcg (50,000 unit) capsule 50,000 unit PO WEEKLY 56 Days Qty: 8 0RF Label Comments: TAKES ON SUNDAYS Rx Instructions: Take one capsule once a week for eight weeks phytonadione (vitamin K1) 100 mcg tablet 100 mcg PO QAM vitamin E 400 unit Capsule 400 unit PO QAM vitamin A 10,000 unit Capsule 10,000 unit PO QAM venlafaxine [Effexor XR] 150 mg capsule,extended release 24hr 150 mg PO QAM levothyroxine [Synthroid] 25 mcg tablet 25 mcg PO QAM sumatriptan succinate 100 mg tablet See Rx Instructions PO .COMPLEX PRN (Reason: Migraine Headache) Rx Instructions: take 1 tab at onset of headache; if no relief, may repeat 1 tab after at least 2 hrs; max = 2 tabs/24 hrs PO hydroxyzine HCl 25 mg tablet 25 mg PO HS PRN (Reason: Insomnia) mecobalamin (vitamin B12) 1,000 mcg tablet,disintegrating 1,000 mcg sublingual QAM Rx Instructions: place tablet under tongue and allow to dissolve for at least30 secs before swallowing fluconazole [Diflucan] 150 mg tablet 150 mg PO ONCE PRN (Reason: yeast infection) Qty: 1 0RF Discontinued cefdinir 300 mg capsule 300 mg PO BID Qty: 14 0RF Discharge Orders: Discharge Order (Routine); Ordered 01/30/22 Ordered By: Lolita Gomez Admission Data Admit Date/Time: 01/28/22 02:17 Attending Provider: Lolita Gomez Admit Provider: Domenic Hernandez Primary Care Provider: Armando Holder Other Providers: Mumtaz Patterson Coding Level of Care Code 89971 OBS Care - Discharge Diagnoses UTI (urinary tract infection) N39.0 Migraines G43.909 Hypothyroidism E03.9 Depression with anxiety F41.8 Disc disease, degenerative, lumbar or lumbosacral M51.37 Morbidly obese E66.01
== END 2022-01-30 11:07 | disposition home or self-care (01) ==
LOC: 2N 22:24 → ED 22:24 → SUATTDRO 01-28 02:17 → 2N 01-28 03:09 → 3N 01-29 22:49

== ENCOUNTER 2022-03-26 19:06 | Inpatient (IN) ==
[2022-03-26] MEDS ORDERED: ONDANSETRON INJ 2 MG/ML 2 ML VIAL IV STA (19:22)
[2022-03-26] MEDS ORDERED: SODIUM CHLORIDE 0.9% 500 ML IV STA (19:22)
[2022-03-26] MEDS ORDERED: MoRPHine SULFATE 4 MG/ML 1 ML CARP\\VIAL IV STA (19:22)
--- NOTE | 2022-03-26 19:26 | Emergency Department Note ---
Impression & Plan Diffuse abdominal pain, SBO (small bowel obstruction), UTI (urinary tract infection), History of gastric bypass ED Provider Note NAME: CAMDEN MORA AGE: 46 SEX: F : 1975 ARRIVES VIA: Ambulance INFORMANT: [Patient] ED PROVIDER(S): [Angelito Blanco MD] CHIEF COMPLAINT: Abdominal pain HISTORY OF PRESENT ILLNESS: The patient is a 46-year-old female presents with abdominal pain, distention ongoing for the entire day. She has had nausea without vomiting. The pain is severe and her abdomen is firm/hard. She has a history of small bowel obstruction and she believes she may have another. There has been no fever, no cough or congestion. No diarrhea, no urinary complaints. The patient is to have bowel surgery eventually however, nothing is yet scheduled. Her last hospitalization for small bowel obstruction required transfer to [facility], the bowel obstruction opened with nasogastric tube insertion, no surgery was performed. REVIEW OF SYSTEMS: See HPI for pertinent positives and negatives. A total of ten systems were reviewed and were otherwise negative. PMHx/PSHx: See Below SOCIAL HISTORY: See Below. PHYSICAL EXAM: GENERAL: Patient is in no acute distress. Mild distress from pain. HEENT: No acute trauma, normocephalic atraumatic, mucous membranes moist, no nasal congestion, no scleral icterus. NECK: No stridor, no adenopathy, no meningismus, trachea is midline. LUNGS: Clear to auscultation bilaterally, no wheeze, no rhonchi, breath sounds equal. HEART: Without murmurs gallops or rubs, regular rate and rhythm. ABDOMEN: Firm abdomen with an obvious ventral hernia, distention is noted. Diffusely moderately tender. EXTREMITIES: No cyanosis, full range of motion of all the joints without pain or difficulty, no signs for acute trauma. NEUROLOGIC: Oriented x 3, no acute motor or sensory deficits, no focal weakness. SKIN: No rash, no jaundice, no diaphoresis. DIFFERENTIAL DIAGNOSIS: Appendicitis, ovarian cyst, ovarian torsion, diverticulitis, UTI, obstruction, mesenteric ischemia, aortic pathology, inflammatory bowel disease, renal colic, PUD, pancreatitis, biliary pathology, hernia, volvulus, constipation, as well as other pathologies. EMERGENCY DEPARTMENT COURSE/PROCEDURES: ECG: Indication was abdominal pain. The ECG shows a sinus tachycardia with a rate of 109. There is an old anterior infarct present noted by poor R wave progression. There is no ST elevation, no PVCs. The QTc is 428. Continuous Cardiac Monitoring: An order was placed for continuous cardiac monitoring. The monitor shows a rate of 105 with sinus tachycardia. MEDICAL DECISION MAKING: There is a moderate leukocytosis, this could be consistent with her pain or possibly with infection. There was a normal hemoglobin. There was a normal platelet count. No renal failure or significant electrolyte abnormality. No concerning liver enzyme elevation. No evidence for pancreatitis. Urinalysis does suggest infection. COVID test was negative. Abdominal and pelvis CT does show evidence for a small bowel obstruction as well as a ventral wall abdominal hernia. Patient was given IV ceftriaxone for the UTI. She received IV morphine for pain, IV Zofran for nausea, she was given IV saline. An NG tube was placed to l ow intermittent suction. I did speak with our general surgery physician, Dr. Jasso. He suggested transfer to [facility] in [place]. I spoke with Dr. Kemp of general surgery at [facility] in [place], she did accept the patient. Unfortunately, a bed will not be available until tomorrow. She recommended a hospital stay at our facility until a bed opens, NG tube decompression to continue. The consent for transfer was completed and signed. I spoke with the patient, I talked to case management, the on-call hospitalist was consulted. Past Med/Surg History Medical History Anemia hx iron infusions Depression with anxiety Disc disease, degenerative, lumbar or lumbosacral GERD (gastroesophageal reflux disease) History of kidney stones History of migraine History of small bowel obstruction History of syncope hx (pt states r/t to severe back pain) - last syncopal episode 1+ years ago Hypothyroidism Insomnia Lumbar radiculopathy Migraines Morbid obesity with BMI of 50.0-59.9, adult Nausea & vomiting Neuropathy Osteoarthritis Pyelonephritis Sleep apnea CPAP UTI (urinary tract infection) Vitamin D deficiency Surgical History History of adenoidectomy History of appendectomy Removed during bowel resection surgery History of bariatric surgery 05/14/2019 at [facility] [place], Dr. Young - Laproscopic converted to Open biliopancreatic diversion with duodenal switch History of bowel resection D/T SCAR TISSUE History of cardiac cath VERTIGO>OCTOBER 2017 (NO PROBLEMS) History of cholecystectomy History of colonoscopy History of cystoscopy History of esophagogastroduodenoscopy (EGD) History of lithotripsy S/P ureteral stent placement 06/04/2021: MAC. No issues per anesthesia postop progress note. Family History Mother Pancreatic cancer Family history of diabetes mellitus Aunt Breast cancer Brother Family history of diabetes mellitus Other No family history of adverse response to anesthesia Denies family history of Ovarian cancer Prostate cancer Lung cancer Colorectal cancer Social History Smoking Status: Never smoker Second Hand Exposure: Yes (as a child); Hx Alcohol Use: No Hx Substance Use: No Preferred Language: Kyrgyz Communication Ability: Effective Visual Impairment: No Limitations Hearing Ability: Normal Safety Director Required: No Beliefs That Will Affect Care: None marital status: Current Living Situation: Spouse current occupational status: employed current occupation: works at [employer] Safe at Home: Yes Childhood Exposure to Second-Hand Smoke: Yes caffeine: No Dental Care, Regularly: Yes Physical Activity Frequency: 3-4 Times per Week Seatbelt Use: always Sunscreen Use: Yes Assistive Devices: CPAP, Walker and Wheelchair Allergies Allergies Allergy/AdvReac Type Severity Reaction Status Date / Time tamsulosin [From Flomax] Allergy Severe angioedema Verified 03/03/22 14:57 Home Meds Home Medications Medication Instructions Recorded Confirmed phytonadione (vitamin K1) 100 mcg 100 mcg PO QAM 08/03/19 03/03/22 tablet vitamin A 10,000 unit capsule 10,000 unit PO QAM 05/25/21 03/03/22 vitamin E 268 mg (400 unit) capsule 400 unit PO QAM 05/25/21 03/03/22 levothyroxine 25 mcg tablet 25 mcg PO QAM 06/29/21 03/03/22 (Synthroid) venlafaxine 150 mg 150 mg PO QAM 06/29/21 03/26/22 capsule,extended release 24 hr (Effexor XR) hydroxyzine HCl 25 mg tablet 25 mg PO HS PRN Insomnia 07/02/21 03/26/22 mecobalamin (vitamin B12) 1,000 1,000 mcg sublingual QAM 10/27/21 03/26/22 mcg disintegrating tablet,sublingual ondansetron 4 mg disintegrating 4 mg translingual Q8 PRN nausea or 02/18/22 03/26/22 tablet vomiting diclofenac sodium 1 % topical gel 2 g topical QID PRN Pain 03/03/22 03/26/22 (Voltaren Arthritis Pain) Previous Rx's Medication Instructions Recorded levonorgestrel 0.15 mg-ethinyl 1 tab PO QAM #84 tabs 05/21/21 estradiol 0.03 mg tablet (Kurvelo (28)) cholecalciferol (vitamin D3) 1,250 50,000 unit PO WEEKLY 8 weeks #8 12/22/21 mcg (50,000 unit) capsule caps pantoprazole 40 mg tablet,delayed 40 mg PO DAILY #90 tabs 01/13/22 release (Protonix) oxycodone 10 mg tablet 10 mg PO BID PRN pain #20 tabs 03/03/22 pregabalin 200 mg capsule (Lyrica) 200 mg PO BID #60 caps 03/17/22 sumatriptan succinate 100 mg tablet See Rx Instructions .Route 03/25/22 .COMPLEX #27 tabs Results & Data (ED) Vital Signs Vital Signs - 24 hr 03/26/22 19:15 03/26/22 19:15 03/26/22 21:00 Temperature 36.7 C Temperature Source Oral Pulse Rate 107 H Pulse Rate [Apical] 105 H 96 H Pulse Rhythm Regular Pulse Rhythm [Apical] Regular Regular Pulse Strength Normal Pulse Strength [Apical] Normal Normal Respiratory Rate 20 20 20 Respiratory Effort / Characteristics Non-Labored Non-Labored Non-Labored Respiratory Depth Normal Normal Normal Respiratory Pattern Regular Regular Regular Blood Pressure 138/95 Blood Pressure [Right Arm] 150/100 H Blood Pressure Mean 109 Blood Pressure Mean [Right Arm] 116 Blood Pressure Position Lying Blood Pressure Position [Right Arm] Sitting Pulse Oximetry 99 99 98 Oxygen Delivery Method Room Air Room Air Room Air Sepsis Recent Fever Within 48 Hours No Sepsis New/Unexplained Change in Mental Status No Sepsis Action Taken by Nursing No Action Required Home Medications Current Medication List: was personally reviewed by me Laboratory Data Attestation: I reviewed the patient's lab results. Result diagrams: 03/26/22 19:32 03/26/22 19:32 Lab Results 03/26/22 03/26/22 03/26/22 Range/Units 19:32 19:32 19:58 WBC 16.88 H (4.8-10.8) K/ul RBC 4.62 (3.93-5.22) M/uL Hgb 14.0 (12.0-16.0) g/dl Hct 42.4 (34.1-44.9) % MCV 91.8 (80.0-100.0) fL MCH 30.3 (25.0-34.0) pg MCHC 33.0 (32.0-36.0) g/dL RDW Std Deviation 46.9 H (36.4-46.3) fL RDW Coeff of [place] 14.0 (11.5-14.5) % Plt Count 354 (130-400) K/uL MPV 10.4 (9.4-12.3) fL Immature Gran % (Auto) 0.4 % Neut % (Auto) 87.1 % Lymph % (Auto) 8.1 % [place] % (Auto) 3.0 % Eos % (Auto) 1.0 % Baso % (Auto) 0.4 % Neut # (Auto) 14.73 H (1.4-6.5) K/uL Lymph # (Auto) 1.36 (1.2-3.4) K/uL [place] # (Auto) 0.50 (0.24-0.82) K/uL Eos # (Auto) 0.17 (0-0.50) K/uL Baso # (Auto) 0.06 (0-0.2) K/uL Immature Gran # (Auto) 0.06 H (0.00-0.02) K/uL Sodium 135 L (136-145) mmol/L Potassium 4.2 (3.5-5.1) mmol/L Chloride 105 (98-107) mmol/L Carbon Dioxide 23 (21-32) mmol/L Anion Gap 7 (3-11) BUN 13 (6-23) mg/dl Creatinine 1.04 (0.6-1.2) mg/dl Est Cr Clr Drug Dosing 99.7 ml/min Est GFR ( Amer) 74.6 ml/min Est GFR (Non-Af Amer) 64.4 ml/min BUN/Creatinine Ratio 12.5 (10-20) Glucose 110 H (70-99(Fasting)) mg/dl Calcium 9.1 (8.5-10.1) mg/dl Total Bilirubin 0.4 (0.2-1.0) mg/dl AST 14 (13-39) U/L ALT 14 (7-52) U/L Alkaline Phosphatase 79 (34-104) U/L Total Protein 7.1 (6.0-8.3) gm/dl Albumin 3.8 (3.4-5.0) gm/dl Globulin 3.3 (2.5-4.0) gm/dl Albumin/Globulin Ratio 1.2 (0.9-2) Lipase 13 (11-82) U/L Urine Color Urine Appearance (Clear) Urine pH (4.5-7.5) Ur Specific [place] (1.000-1.030) Urine Protein (Negative) Urine Glucose (UA) (Negative) Urine Ketones (Negative) Urine Blood (Negative) Urine Nitrite (Negative) Urine Bilirubin (Negative) Urine Urobilinogen (Negative) Ur Leukocyte Esterase (Negative) Urine WBC (Auto) (0-5) /hpf Urine RBC (Auto) (0-4) /hpf U Hyaline Cast (Auto) (0-5) /lpf U Epithel Cells (Auto) (0-5) /lpf Urine Bacteria (Auto) (Negative) SARS-CoV-2, RNA, NAAT NEGATIVE (NEGATIVE) 03/26/22 Range/Units 20:45 WBC (4.8-10.8) K/ul RBC (3.93-5.22) M/uL Hgb (12.0-16.0) g/dl Hct (34.1-44.9) % MCV (80.0-100.0) fL MCH (25.0-34.0) pg MCHC (32.0-36.0) g/dL RDW Std Deviation (36.4-46.3) fL RDW Coeff of [place] (11.5-14.5) % Plt Count (130-400) K/uL MPV (9.4-12.3) fL Immature Gran % (Auto) % Neut % (Auto) % Lymph % (Auto) % [place] % (Auto) % Eos % (Auto) % Baso % (Auto) % Neut # (Auto) (1.4-6.5) K/uL Lymph # (Auto) (1.2-3.4) K/uL [place] # (Auto) (0.24-0.82) K/uL Eos # (Auto) (0-0.50) K/uL Baso # (Auto) (0-0.2) K/uL Immature Gran # (Auto) (0.00-0.02) K/uL Sodium (136-145) mmol/L Potassium (3.5-5.1) mmol/L Chloride (98-107) mmol/L Carbon Dioxide (21-32) mmol/L Anion Gap (3-11) BUN (6-23) mg/dl Creatinine (0.6-1.2) mg/dl Est Cr Clr Drug Dosing ml/min Est GFR ( Amer) ml/min Est GFR (Non-Af Amer) ml/min BUN/Creatinine Ratio (10-20) Glucose (70-99(Fasting)) mg/dl Calcium (8.5-10.1) mg/dl Total Bilirubin (0.2-1.0) mg/dl AST (13-39) U/L ALT (7-52) U/L Alkaline Phosphatase (34-104) U/L Total Protein (6.0-8.3) gm/dl Albumin (3.4-5.0) gm/dl Globulin (2.5-4.0) gm/dl Albumin/Globulin Ratio (0.9-2) Lipase (11-82) U/L Urine Color Yellow Urine Appearance Cloudy A (Clear) Urine pH 5.0 (4.5-7.5) Ur Specific [place] 1.019 (1.000-1.030) Urine Protein Negative (Negative) Urine Glucose (UA) Negative (Negative) Urine Ketones Negative (Negative) Urine Blood Trace H (Negative) Urine Nitrite Positive A (Negative) Urine Bilirubin Negative (Negative) Urine Urobilinogen Negative (Negative) Ur Leukocyte Esterase 2+ H (Negative) Urine WBC (Auto) >30 H (0-5) /hpf Urine RBC (Auto) 0-4 (0-4) /hpf U Hyaline Cast (Auto) 1-5 (0-5) /lpf U Epithel Cells (Auto) 20-30 H (0-5) /lpf Urine Bacteria (Auto) 4+ H (Negative) SARS-CoV-2, RNA, NAAT (NEGATIVE) Administered Medications Morphine Sulfate (Morphine Sulfate 4 Mg/Ml 1 Ml Carp\Vial) 4 mg IV Q15M PRN PRN Reason: Pain Stop: 04/09/22 19:21 Last Admin: 03/26/22 21:35 Dose: 4 mg Documented By: Admin: 03/26/22 20:02 Dose: 4 mg Documented By: RSAakash Discontinued Medications Sodium Chloride (Nss) 500 mls @ 999 mls/hr IV .Q31M STA Stop: 03/26/22 19:52 Last Infusion: 03/26/22 20:52 Dose: 0 mls/hr Documented By: Admin: 03/26/22 19:39 Dose: 999 mls/hr Documented By: LEWIS Ceftriaxone Sodium (Rocephin) 2,000 mg in 70 mls @ 140 mls/hr IV NOW STA Stop: 03/26/22 21:50 Last Infusion: 03/26/22 21:56 Dose: 0 mls/hr Documented By: Admin: 03/26/22 21:35 Dose: 140 mls/hr Documented By: NOE Ioversol (Optiray 320 500ml) 115 ml IV ONCE ONE Stop: 03/26/22 20:34 Last Admin: 03/26/22 20:33 Dose: 115 ml Documented By: UNA Morphine Sulfate (Morphine Sulfate 4 Mg/Ml 1 Ml Carp\Vial) 4 mg IV NOW STA Stop: 03/26/22 19:23 Last Admin: 03/26/22 19:38 Dose: 4 mg Documented By: RSAakash Ondansetron HCl (Ondansetron Inj 2 Mg/Ml 2 Ml Vial) 4 mg IV NOW STA Stop: 03/26/22 19:23 Last Admin: 03/26/22 19:38 Dose: 4 mg Documented By: LEWIS Imaging Data Radiologist's Impression: Abdomen/Pelvis CT 03/26/22 19:22 CT abd pelvis IV con only CLINICAL HISTORY: poss obstruc TECHNIQUE: Helical axial images of the abdomen and pelvis were obtained and displayed. Automated dose lowering techniques and/or adjustment according to patient size were utilized for this exam. This exam was performed with intravenous contrast. CT DOSE: 1825.71 mGy.cm COMPARISON: Comparison is made to CT abdomen pelvis 02/18/2022 FINDINGS: Lower chest: No acute abnormality Liver: Unremarkable. No focal lesions are seen. Gallbladder and biliary tree: Patient is status post cholecystectomy. Physiologic prominence of the biliary ducts is noted. Pancreas: Unremarkable, no focal lesions. Spleen: Unremarkable. Adrenals: Unremarkable. Kidneys and ureters: Unremarkable. Bladder: Unremarkable. Reproductive organs: Unremarkable. Bowel: Patient is status post gastric bypass surgery. There are numerous dilated loops of small bowel measuring up to 4.4 cm in diameter. These lie predominantly within a large ventral hernia and do demonstrate surrounding fat stranding and increased vascularity. Although the full extent of these bowel loops are beyond the field of view of this exam, at least one transition point is noted. Lymph nodes Retroperitoneal: Unremarkable. Pelvic: Unremarkable. Mesenteric: Unremarkable. Peritoneum: Normal. Vessels: Unremarkable. Abdominal wall: A large ventral hernia is seen contain multiple loops of bowel.. Bones: Degenerative changes in the visualized spine. Grade 1 anterolisthesis is seen at L4-L5. IMPRESSION: Redemonstration of a moderate to high-grade small bowel obstruction, possibly minimally progressed from prior exam. The loops of bowel or not entirely contained within the field of view. At least one transition point is identified and there is greater inflammatory change about the loops of bowel than in the prior exam. ACT 112: Negative or not required by law. Electronically signed by: Antonio Rosario M.D. 03/26/2022 9:24 PM Discharge Plan Visit Data Chief Complaint: Abdominal Pain Stated Complaint: ABDOMINAL PAIN ED Provider: Angelito Blanco Discharge Problem: Diffuse abdominal pain, SBO (small bowel obstruction), UTI (urinary tract infection), History of gastric bypass Patient Disposition: Admitted As Inpatient Condition: Fair Forms Stand Alone Forms: [facility] Prescriptions Prescriptions: No Action levonorgestrel-ethinyl estrad [Kurvelo (28)] 0.15-0.03 mg tablet 1 tab PO QAM Qty: 84 11RF oxycodone 10 mg tablet 10 mg PO BID PRN (Reason: pain) Qty: 20 0RF pregabalin [Lyrica] 200 mg capsule 200 mg PO BID Qty: 60 2RF sumatriptan succinate 100 mg tablet See Rx Instructions .ROUTE .COMPLEX Qty: 27 0RF Dose Instruction: take 1 tablet by mouth AT ONSET OF HEADACHE may repeat in 2 hours IF headache PERSISTS maximum daily dose of 2 tablets ( 200 milligrams ) every 24 hours Rx Instructions: take 1 tablet by mouth AT ONSET OF HEADACHE may repeat in 2 hours IF headache PERSISTS maximum daily dose of 2 tablets ( 200 milligrams ) every 24 hours pantoprazole [Protonix] 40 mg tablet,delayed release (DR/EC) 40 mg PO DAILY Qty: 90 3RF cholecalciferol (vitamin D3) 1,250 mcg (50,000 unit) capsule 50,000 unit PO WEEKLY 56 Days Qty: 8 0RF Label Comments: TAKES ON SUNDAYS Rx Instructions: Take one capsule once a week for eight weeks phytonadione (vitamin K1) 100 mcg tablet 100 mcg PO QAM diclofenac sodium [Voltaren Arthritis Pain] 1 % gel 2 g topical QID PRN (Reason: Pain) Rx Instructions: apply to single elbow, wrist or hand; for hand includes palm/fingers/back of hand vitamin E 400 unit Capsule 400 unit PO QAM vitamin A 10,000 unit Capsule 10,000 unit PO QAM venlafaxine [Effexor XR] 150 mg capsule,extended release 24hr 150 mg PO QAM levothyroxine [Synthroid] 25 mcg tablet 25 mcg PO QAM hydroxyzine HCl 25 mg tablet 25 mg PO HS PRN (Reason: Insomnia) mecobalamin (vitamin B12) 1,000 mcg tablet,disintegrating 1,000 mcg sublingual QAM Rx Instructions: place tablet under tongue and allow to dissolve for at least30 secs before swallowing ondansetron 4 mg tablet,disintegrating 4 mg translingual Q8 PRN (Reason: nausea or vomiting) Rx Instructions: dissolve 1 tablet ON TONGUE every 8 hours if needed for nausea OR vomiting Referrals Referrals: Armando Holder, [Primary Care Provider] -
[2022-03-26 19:52] LABS: Basophils # (auto) 0.06 K/uL (0-0.2); Basophils % (auto) 0.4 %; Eosinophils # (auto) 0.17 K/uL (0-0.50); Hematocrit (blood only) 42.4 % (34.1-44.9); Immature Granulocytes # (auto) 0.06 K/uL (0.00-0.02); Immature Granulocytes % (auto) 0.4 %; Lymphocytes # (auto) 1.36 K/uL (1.2-3.4); Lymphocytes % (auto) 8.1 %; Mean Corpuscular Hemoglobin 30.3 pg (25.0-34.0); Mean Corpuscular Volume 91.8 fL (80.0-100.0); Mean Platelet Volume 10.4 fL (9.4-12.3); Neutrophils # (auto) 14.73 K/uL (1.4-6.5); Neutrophils % (auto) 87.1 %; Platelet Count 354 K/uL (130-400); RDW Standard Deviation 46.9 fL (36.4-46.3); Red Blood Count 4.62 M/uL (3.93-5.22); White Blood Count 16.88 K/ul (4.8-10.8)
[2022-03-26] MEDS: MoRPHine SULFATE 4 MG/ML 1 ML CARP\\VIAL IV PRN ×2 (20:02→21:35)
[2022-03-26 20:11] LABS: Albumin Globulin Ratio 1.2 (0.9-2); Albumin Level 3.8 gm/dl (3.4-5.0); BUN Creatinine Ratio 12.5 (10-20); Bilirubin,Total 0.4 mg/dl (0.2-1.0); Calcium 9.1 mg/dl (8.5-10.1); Creatinine Clr Calc Pharmacy 99.7 ml/min; Est GFR (African American) 74.6 ml/min; Est GFR (Non-African American) 64.4 ml/min; Globulin 3.3 gm/dl (2.5-4.0); Potassium 4.2 mmol/L (3.5-5.1); Total Protein 7.1 gm/dl (6.0-8.3)
[2022-03-26] MEDS ORDERED: OPTIRAY 320 500ml IV ONE (20:33)
[2022-03-26 21:07] LABS: Appearance Urine Cloudy (Clear); Bacteria Urine Automated 4+ (Negative); Bilirubin Urine Negative (Negative); Blood Urine Trace (Negative); Color Urine Yellow; Epithelial Cell Urine Auto 20-30 /lpf (0-5); Glucose Urine UA Negative (Negative); Ketones Urine Negative (Negative); Leukocyte Esterase Urine 2+ (Negative); Nitrite Urine Positive (Negative); Protein Urine Negative (Negative); RBC Urine Automated 0-4 /hpf (0-4); Specific Gravity Urine 1.019 (1.000-1.030); Urobilinogen Urine Negative (Negative); WBC Urine Automated >30 /hpf (0-5)
[2022-03-26] MEDS ORDERED: cefTRIAXone SODIUM 2,000 MG/70 ML BAG IV STA (21:21)
--- NOTE | 2022-03-26 21:26 | CT Scan Report ---
CT abd pelvis IV con only CLINICAL HISTORY: poss obstruc TECHNIQUE: Helical axial images of the abdomen and pelvis were obtained and displayed. Automated dose lowering techniques and/or adjustment according to patient size were utilized for this exam. This e xam was performed with intravenous contrast. CT DOSE: 1825.71 mGy.cm COMPARISON: Comparison is made to CT abdomen pelvis 02/18/2022 FINDINGS: Lower chest: No acute abnormality Liver: Unremarkable. No focal lesions are seen. Gallbladder and biliary tree: Patient is status post cholecystectomy. Physiologic prominence of the b iliary ducts is noted. Pancreas: Unremarkable, no focal lesions. Spleen: Unremarkable. Adrenals: Unremarkable. Kidneys and ureters: Unremarkable. Bladder: Unremarkable. Reproductive organs: Unremarkable. Bowel: Patient is status post gastric bypass surgery. There are numerous dilated loops of small bowel measuring up to 4.4 cm in diameter. These lie predominantly within a large ventral hernia and do dem onstrate surrounding fat stranding and increased vascularity. Although the full extent of these bowel loops are beyond the field of view of this exam, at least one transition point is noted. Lymph nodes Retroperitoneal: Unremarkable. Pelvic: Unremarkable. Mesenteric: Unremarkable. Peritoneum: Normal. Vessels: Unremarkable. Abdominal wall: A large ventral hernia is seen contain multiple loops of bowel.. Bones: Degenerative changes in the visualized spine. Grade 1 anterolisthesis is seen at L4-L5. IMPRESSION: Redemonstration of a moderate to high-grade small bowel obstruction, possibly minimally progressed fr om prior exam. The loops of bowel or not entirely contained within the field of view. At least one tr ansition point is identified and there is greater inflammatory change about the loops of bowel than i n the prior exam. ACT 112: Negative or not required by law. Electronically signed by: Antonio Rosario M.D. 03/26/2022 9:24 PM
[2022-03-26] MEDS ORDERED: HYDROmorphone INJ 0.5 MG/0.5 ML SYR IV STA (22:33)
--- NOTE | 2022-03-26 23:20 | History & Physical Report ---
Date of Service March 26, 2022 Assessment & Plan (1) SBO (small bowel obstruction): Plan: Moderate to high-grade small bowel obstruction- General surgery, Dr. Jasso, requested transfer to [facility] in [place], where the patient was excepted by Dr. Kemp of General surgery. Since there are no beds available, the patient will be admitted to [facility], and will be transferred when a bed becomes available. NPO NSS + KCl 20 mEq at 100 mils per hour Zosyn 4.5 g IV every 8 hours Famotidine 20 mg IV every 12 hours Zofran 4 mg IV every 6 hours as needed Acetaminophen 1 g IV every 8 hours as needed mild pain or fever Toradol 15 mg IV every 6 hours as needed moderate pain Dilaudid 0.5 mg IV every 4 hours as needed severe pain (2) UTI (urinary tract infection): Plan: Follow urine culture sensitivity Most recent UTI on 02/01/2022 was a pansensitive E. coli Will be covered by Zosyn used above (3) History of gastric bypass: Plan: Hold supportive medications while n.p.o. (4) Hypothyroidism: (5) Depression with anxiety: (6) Morbid obesity with BMI of 50.0-59.9, adult: (7) Sleep apnea: History of Present Illness Chief Complaint: The patient presents to the emergency department with acute onset of abdominal pain around 7 AM this morning, similar to previous episodes of small bowel obstruction. Primary Care Provider: Armando Holder DO The patient is a 46-year-old female with a past medical history including small bowel obstructions, history of gastric bypass surgery, morbid obesity, anemia, LDDD, lumbar radiculopathy, hypothyroidism, ventral hernia, STEPHEN, depression with anxiety, history of ureteral stent placement, vitamin D deficiency, migraine without aura and iron deficiency anemia. The patient most recently was admitted to [facility] from 02/18-02/20/2022 for small bowel obstruction, and was transferred to [facility], where she was discharged charged from on 02/21/2022. Patient reports she had been feeling well until she developed acute recurrence of pain this morning. CT scan of abdomen and pelvis in the ED this evening shows moderate to high- grade small bowel obstruction. Allergies Allergy/AdvReac Type Severity Reaction Status Date / Time tamsulosin [From Flomax] Allergy Severe angioedema Verified 03/26/22 22:51 Home Medications Medication Instructions Recorded Confirmed Type phytonadione (vitamin K1) 100 mcg 100 mcg PO QAM 08/03/19 03/26/22 History tablet levonorgestrel 0.15 mg-ethinyl 1 tab PO QAM #84 tabs 05/21/21 03/26/22 Rx estradiol 0.03 mg tablet (Barb (28)) vitamin A 10,000 unit capsule 10,000 unit PO QAM 05/25/21 03/26/22 History vitamin E 268 mg (400 unit) capsule 400 unit PO QAM 05/25/21 03/26/22 History levothyroxine 25 mcg tablet 25 mcg PO QAM 06/29/21 03/26/22 History (Synthroid) venlafaxine 150 mg 150 mg PO QAM 06/29/21 03/26/22 History capsule,extended release 24 hr (Effexor XR) hydroxyzine HCl 25 mg tablet 25 mg PO HS PRN Insomnia 07/02/21 03/26/22 History mecobalamin (vitamin B12) 1,000 1,000 mcg sublingual QAM 10/27/21 03/26/22 History mcg disintegrating tablet,sublingual cholecalciferol (vitamin D3) 1,250 50,000 unit PO WEEKLY 8 weeks #8 12/22/21 03/26/22 Rx mcg (50,000 unit) capsule caps pantoprazole 40 mg tablet,delayed 40 mg PO DAILY #90 tabs 01/13/22 03/26/22 Rx release (Protonix) ondansetron 4 mg disintegrating 4 mg translingual Q8 PRN nausea or 02/18/22 1 History tablet vomiting diclofenac sodium 1 % topical gel 2 g topical QID PRN Pain 03/03/22 03/26/22 History (Voltaren Arthritis Pain) oxycodone 10 mg tablet 10 mg PO BID PRN pain #20 tabs 03/03/22 03/26/22 Rx pregabalin 200 mg capsule (Lyrica) 200 mg PO BID #60 caps 03/17/22 03/26/22 Rx sumatriptan succinate 100 mg tablet See Rx Instructions .Route 03/25/22 03/26/22 Rx .COMPLEX #27 tabs Past Med/Surg History Medical History (Updated 10/15/22 @ 02:02 by Mumtaz Patterson MD) Anemia hx iron infusions Depression with anxiety Disc disease, degenerative, lumbar or lumbosacral GERD (gastroesophageal reflux disease) History of kidney stones History of migraine History of small bowel obstruction History of syncope hx (pt states r/t to severe back pain) - last syncopal episode 1+ years ago Hypothyroidism Insomnia Lumbar radiculopathy Migraines Morbid obesity with BMI of 50.0-59.9, adult Nausea & vomiting Neuropathy Osteoarthritis Pyelonephritis Sleep apnea CPAP UTI (urinary tract infection) Vitamin D deficiency Surgical History (Updated 03/26/22 @ 22:28 by Angelito Blanco MD) History of adenoidectomy History of appendectomy Removed during bowel resection surgery History of bariatric surgery 05/14/2019 at [facility], Dr. Young - Laproscopic converted to Open biliopancreatic diversion with duodenal switch History of bowel resection D/T SCAR TISSUE History of cardiac cath VERTIGO>OCTOBER 2017 (NO PROBLEMS) History of cholecystectomy History of colonoscopy History of cystoscopy History of esophagogastroduodenoscopy (EGD) History of lithotripsy S/P ureteral stent placement 06/04/2021: MAC. No issues per anesthesia postop progress note. Family History Mother Pancreatic cancer Family history of diabetes mellitus Aunt Breast cancer Brother Family history of diabetes mellitus Other No family history of adverse response to anesthesia Denies family history of Ovarian cancer Prostate cancer Lung cancer Colorectal cancer Social History Smoking Status: Never smoker Second Hand Exposure: Yes (as a child); Hx Alcohol Use: No Hx Substance Use: No Preferred Language: Serbian Communication Ability: Effective Visual Impairment: No Limitations Hearing Ability: Normal L[place] Blindstitch Required: No Beliefs That Will Affect Care: None marital status: Current Living Situation: Spouse current occupational status: employed current occupation: works at [employer] Feels Safe at Home: Yes Childhood Exposure to Second-Hand Smoke: Yes caffeine: No Dental Care, Regularly: Yes Physical Activity Frequency: 3-4 Times per Week Seatbelt Use: always Sunscreen Use: Yes Assistive Devices: CPAP, Walker and Wheelchair Review of Systems Review of Systems: The patient denies chest pain, palpitations, shortness of breath, dyspnea on exertion, cough, lower extremity swelling, sore throat, fevers, chills, sweats, blood in urine or stool, dysuria, urinary frequency or urgency, lightheadedness, dizziness, headache, memory loss, loss of consciousness, rash, abnormal bruising or bleeding, imbalance, focal or generalized weakness, numbness or tingling in arms or legs, generalized arthralgias or myalgias, back or neck pain, or night sweats. The review of systems is otherwise negative other than for that already noted above, and at least 10 systems have been reviewed. Physical Exam Physical Exam: The patient is awake, alert and oriented 3, well developed and well nourished, normocephalic and atraumatic, lying in bed and in no acute distress. HEENT--PERRL, EOMI, mucous membranes and oropharynx dry. Neck--supple. No JVD. No bruits. Thyroid normal, trachea midline, no adenopathy. Heart--normal S1 and S2. No murmurs, rubs or gallops. Lungs--clear bilaterally, no respiratory distress, no accessory muscle use. Abdomen--high-pitched bowel sounds, mildly firm and distended. Extremities--no cyanosis or clubbing. No edema. Dermatologic--normal skin turgor, normal color, no abnormal lymph nodes, no rash. Neurologic--cranial nerves II through XII grossly intact. Rheumatologic--normal range of motion. Psychiatric--normal affect. Results & Data Results & Data ([facility]) Vital Signs (Past 12 Hours) Vital Signs Temp Pulse Pulse Resp BP BP Pulse Ox 03/26/22 22:52 95 H 20 142/93 H 94 03/26/22 21:00 96 H 20 150/100 H 98 03/26/22 19:15 105 H 20 99 03/26/22 19:15 36.7 C 107 H 20 138/95 99 O2 Del Method 03/26/22 22:52 Room Air 03/26/22 21:00 Room Air 03/26/22 19:15 Room Air 03/26/22 19:15 Room Air Laboratory Results Laboratory Results WBC 16.88 K/ul (4.8-10.8) H 03/26/22 19:32 RBC 4.62 M/uL (3.93-5.22) 03/26/22 19: Hgb 14.0 g/dl (12.0-16.0) 03/26/22 19: Hct 42.4 % (34.1-44.9) 03/26/22 19: MCV 91.8 fL (80.0-100.0) 03/26/22: MCH 30.3 pg (25.0-34.0) 03/26/22: MCHC 33.0 g/dL (32.0-36.0) 03/26/22: RDW Std Deviation 46.9 fL (36.4-46.3) H 03/26/22: RDW Coeff of [place] 14.0 % (11.5-14.5) 03/26/22: Plt Count 354 K/uL (130-400) 03/26/22: MPV 10.4 fL (9.4-12.3) 03/26/22: Immature Gran % (Auto) 0.4 % 03/26/22: Neut % (Auto) 87.1 % 03/26/22: Lymph % (Auto) 8.1 % 03/26/22: [place] % (Auto) 3.0 % 03/26/22: Eos % (Auto) 1.0 % 03/26/22: Baso % (Auto) 0.4 % 03/26/22: Neut # (Auto) 14.73 K/uL (1.4-6.5) H 03/26/22: Lymph # (Auto) 1.36 K/uL (1.2-3.4) 03/26/22: [place] # (Auto) 0.50 K/uL (0.24-0.82) 03/26/22: Eos # (Auto) 0.17 K/uL (0-0.50) 03/26/22: Baso # (Auto) 0.06 K/uL (0-0.2) 03/26/22: Immature Gran # (Auto) 0.06 K/uL (0.00-0.02) H 10/14/22 19:32 Sodium 135 mmol/L (136-145) L 03/26/22 19:32 Potassium 4.2 mmol/L (3.5-5.1) 03/26/22 19:32 Chloride 105 mmol/L (98-107) 03/26/22 19:32 Carbon Dioxide 23 mmol/L (21-32) 03/26/22 19:32 Anion Gap 7 (3-11) 03/26/22 19:32 BUN 13 mg/dl (6-23) 03/26/22 19:32 Creatinine 1.04 mg/dl (0.6-1.2) 03/26/22 19:32 Est Cr Clr Drug Dosing 99.7 ml/min 03/26/22 19:32 Est GFR ( Amer) 74.6 ml/min 03/26/22 19:32 Est GFR (Non-Af Amer) 64.4 ml/min 03/26/22 19:32 BUN/Creatinine Ratio 12.5 (10-20) 03/26/22 19:32 Glucose 110 mg/dl (70-99(Fasting)) H 03/26/22 19:32 Calcium 9.1 mg/dl (8.5-10.1) 03/26/22 19:32 Total Bilirubin 0.4 mg/dl (0.2-1.0) 03/26/22 19:32 AST 14 U/L (13-39) 03/26/22 19:32 ALT 14 U/L (7-52) 03/26/22 19:32 Alkaline Phosphatase 79 U/L (34-104) 03/26/22 19:32 Total Protein 7.1 gm/dl (6.0-8.3) 03/26/22 19:32 Albumin 3.8 gm/dl (3.4-5.0) 03/26/22 19:32 Globulin 3.3 gm/dl (2.5-4.0) 03/26/22 19:32 Albumin/Globulin Ratio 1.2 (0.9-2) 03/26/22 19:32 Lipase 13 U/L (11-82) 03/26/22 19:32 Urine Color Yellow 03/26/22 20:45 Urine Appearance Cloudy (Clear) A 03/26/22 20:45 Urine pH 5.0 (4.5-7.5) 03/26/22 20:45 Ur Specific [place] 1.019 (1.000-1.030) 03/26/22 20:45 Urine Protein Negative (Negative) 03/26/22 20:45 Urine Glucose (UA) Negative (Negative) 03/26/22 20:45 Urine Ketones Negative (Negative) 03/26/22 20:45 Urine Blood Trace (Negative) H 03/26/22 20:45 Urine Nitrite Positive (Negative) A 03/26/22 20:45 Urine Bilirubin Negative (Negative) 03/26/22 20:45 Urine Urobilinogen Negative (Negative) 03/26/22 20:45 Ur Leukocyte Esterase 2+ (Negative) H 03/26/22 20:45 Urine WBC (Auto) >30 /hpf (0-5) H 03/26/22 20:45 Urine RBC (Auto) 0-4 /hpf (0-4) 03/26/22 20:45 U Hyaline Cast (Auto) 1-5 /lpf (0-5) 03/26/22 20:45 U Epithel Cells (Auto) 20-30 /lpf (0-5) H 03/26/22 20:45 Urine Bacteria (Auto) 4+ (Negative) H 03/26/22 20:45 SARS-CoV-2, RNA, NAAT NEGATIVE (NEGATIVE) 03/26/22 19:58 Impressions Abdomen/Pelvis CT 03/26/22 19:22 CT abd pelvis IV con only CLINICAL HISTORY: poss obstruc TECHNIQUE: Helical axial images of the abdomen and pelvis were obtained and displayed. Automated dose lowering techniques and/or adjustment according to patient size were utilized for this exam. This exam was performed with intravenous contrast. CT DOSE: 1825.71 mGy.cm COMPARISON: Comparison is made to CT abdomen pelvis 02/18/2022 FINDINGS: Lower chest: No acute abnormality Liver: Unremarkable. No focal lesions are seen. Gallbladder and biliary tree: Patient is status post cholecystectomy. Physiologic prominence of the biliary ducts is noted. Pancreas: Unremarkable, no focal lesions. Spleen: Unremarkable. Adrenals: Unremarkable. Kidneys and ureters: Unremarkable. Bladder: Unremarkable. Reproductive organs: Unremarkable. Bowel: Patient is status post gastric bypass surgery. There are numerous dilated loops of small bowel measuring up to 4.4 cm in diameter. These lie predominantly within a large ventral hernia and do demonstrate surrounding fat stranding and increased vascularity. Although the full extent of these bowel loops are beyond the field of view of this exam, at least one transition point is noted. Lymph nodes Retroperitoneal: Unremarkable. Pelvic: Unremarkable. Mesenteric: Unremarkable. Peritoneum: Normal. Vessels: Unremarkable. Abdominal wall: A large ventral hernia is seen contain multiple loops of bowel.. Bones: Degenerative changes in the visualized spine. Grade 1 anterolisthesis is seen at L4-L5. IMPRESSION: Redemonstration of a moderate to high-grade small bowel obstruction, possibly minimally progressed from prior exam. The loops of bowel or not entirely contained within the field of view. At least one transition point is identified and there is greater inflammatory change about the loops of bowel than in the prior exam. ACT 112: Negative or not required by law. Electronically signed by: Antonio Rosario M.D. 03/26/2022 9:24 PM Code Status & VTE Plan Code Status Full code VTE Prophylaxis Plan VTE Prophylaxis will be ordered: Yes PG Care Time/CCT Total # of Minutes Spent Total Time Spent with Patient: Total time spent is greater than 50% in coordination of care (as documented) at patient's floor/unit and/or counseling patient: Coding Level of Care Code 92235 Initial Inpt Care Lvl 3 Diagnoses SBO (small bowel obstruction) K56.609 UTI (urinary tract infection) N30.00 Hematuria presence: without hematuria Urinary tract infection type: acute cystitis History of gastric bypass Z98.84 Hypothyroidism E03.9 Depression with anxiety F41.8 Morbid obesity with BMI of 50.0-59.9, adult E66.01; Z68.43 Sleep apnea G47.30 (1) UTI (urinary tract infection) Hematuria presence: without hematuria Urinary tract infection type: acute cystitis Qualified Code(s): N30.00 - Acute cystitis without hematuria
[2022-03-27] MEDS ORDERED: ACETAMINOPHEN 1,000 MG/100 ML VIAL IV PRN (00:37)
[2022-03-27] MEDS ORDERED: ONDANSETRON INJ 2 MG/ML 2 ML VIAL IV PRN (00:37)
[2022-03-27] MEDS ORDERED: KETOROLAC TROMETHAMINE 15 MG/ML VIAL IV PRN (00:37)
[2022-03-27] MEDS ORDERED: MoRPHine SULFATE 4 MG/ML 1 ML CARP\\VIAL IV PRN (00:37)
[2022-03-27] MEDS ORDERED: PIPERACILLIN/TAZOBACTAM 4.5 GM in DEXTROSE 5% 100 ML IV ONE (01:30)
[2022-03-27] MEDS: NSS + 20MEQ KCL 20 MEQ/1,000 ML BAG IV SCH ×2 (01:41→11:32)
[2022-03-27] MEDS: ACETAMINOPHEN 1,000 MG/100 ML VIAL IV SCH ×3 (01:41→17:12)
[2022-03-27] MEDS ORDERED: FLUARIX QUADRIVALENT 0.5 ML SYR IM ONE (02:11)
[2022-03-27] MEDS: HYDROmorphone INJ 0.5 MG/0.5 ML SYR IV PRN ×4 (02:31→17:11)
[2022-03-27] MEDS: PIPERACILLIN/TAZOBACTAM 4.5 GM in DEXTROSE 5% 100 ML IV SCH ×2 (06:01→14:46)
--- NOTE | 2022-03-27 07:51 | XRay Report ---
XR chest 1V portable HISTORY: check ng placement COMPARISON: Chest 06/26/2021. FINDINGS: Nasogastric tube terminates at the gastric cardia with the fenestrated line at the distal e sophagus. This should be advanced by approximately 5 to 10 cm. Dilated loops of small bowel are parti ally visualized consistent with the patient's history of a small bowel obstruction. There are low heather g volumes with elevation the right hemidiaphragm, unchanged. The left lung is clear. Right basilar li near densities favor subsegmental atelectasis. No pneumothorax. No pleural effusions. The heart is no rmal in size. IMPRESSION: Nasogastric tube terminates at the gastric cardia with the fenestrated line at the distal esophagus. This should be advanced by approximately 5 to 10 cm. ACT 112: Negative or not required by law. Electronically signed by: Rey Esqueda M.D. 03/27/2022 7:49 AM
[2022-03-27 07:58] LABS: Basophils # (auto) 0.03 K/uL (0-0.2); Basophils % (auto) 0.2 %; Eosinophils # (auto) 0.25 K/uL (0-0.50); Eosinophils % (auto) 1.9 %; Hematocrit (blood only) 39.5 % (34.1-44.9); Hemoglobin 12.9 g/dl (12.0-16.0); Immature Granulocytes # (auto) 0.03 K/uL (0.00-0.02); Immature Granulocytes % (auto) 0.2 %; Lymphocytes # (auto) 0.94 K/uL (1.2-3.4); Lymphocytes % (auto) 7.1 %; Mean Corpuscular Hemoglobin 29.7 pg (25.0-34.0); Mean Corpuscular Hgb Conc 32.7 g/dL (32.0-36.0); Mean Corpuscular Volume 90.8 fL (80.0-100.0); Mean Platelet Volume 10.1 fL (9.4-12.3); Monocytes # (auto) 0.49 K/uL (0.24-0.82); Monocytes % (auto) 3.7 %; Neutrophils # (auto) 11.53 K/uL (1.4-6.5); Neutrophils % (auto) 86.9 %; Platelet Count 334 K/uL (130-400); RDW Coefficient of Variation 14.1 % (11.5-14.5); RDW Standard Deviation 47.3 fL (36.4-46.3); Red Blood Count 4.35 M/uL (3.93-5.22); White Blood Count 13.27 K/ul (4.8-10.8)
[2022-03-27 08:36] LABS: Albumin Globulin Ratio 1.2 (0.9-2); Albumin Level 3.3 gm/dl (3.4-5.0); BUN Creatinine Ratio 14.9 (10-20); Bilirubin,Total 0.4 mg/dl (0.2-1.0); Creatinine Clr Calc Pharmacy 109.7 ml/min; Est GFR (African American) 84.3 ml/min; Est GFR (Non-African American) 72.8 ml/min; Globulin 2.8 gm/dl (2.5-4.0); Magnesium 1.6 mg/dl (1.7-2.4); Potassium 4.1 mmol/L (3.5-5.1); Total Protein 6.1 gm/dl (6.0-8.3)
[2022-03-27] MEDS ORDERED: FAMOTIDINE 20 MG in SYRINGE 3 ML IV SCH (09:00)
--- NOTE | 2022-03-27 09:45 | XRay Report ---
KUB HISTORY: advanced ng tube. confirm placement. COMPARISON: KUB 02/19/2022. Chest x-ray 03/27/2022. FINDINGS: A nasogastric tube is been advanced and now resides within the proximal stomach. Dilated lo ops of small bowel are again noted consistent with the patient's known small bowel obstruction. No r enal calculi. No ureteral calculi. No pneumoperitoneum or pneumatosis. IMPRESSION: The nasogastric tube has been advanced and now terminates in the proximal stomach. Small bowel obstru ction pattern again noted. ACT 112: Negative or not required by law. Electronically signed by: Rey Esqueda M.D. 03/27/2022 9:43 AM
[2022-03-27] MEDS: MAGNESIUM SULFATE / D5W 1 GM/100 ML BAG IV SCH ×2 (10:38→12:45)
[2022-03-27] MEDS ORDERED: SODIUM CHLOR 0.45% + 20MEQ KCL 20 MEQ/1,000 ML BAG IV SCH (13:45)
--- NOTE | 2022-03-27 14:43 | Electrocardiogram Report ---
Test Reason : Blood Pressure : / mmHG Vent. Rate : 109 BPM Atrial Rate : 109 BPM P-R Int : 164 ms QRS Dur : 080 ms QT Int : 318 ms P-R-T Axes : 033 021 -02 degrees QTc Int : 428 ms Sinus tachycardia Poor R wave progression, consider anterior [place] vs. lead placement vs. LVH Nonspecific T wave abnormality Anterior leads Abnormal ECG When compared with ECG of 18-FEB-2022 04:39, Nonspecific T wave abnormality now evident in Anterolateral leads Confirmed by Rodney Harris ([id number]) on 03/27/2022 2:42:40 PM Referred By: REFERRED SELF Confirmed By:Rodney Harris
--- NOTE | 2022-03-27 16:16 | Discharge Summary ---
Date of Service March 27, 2022 Admission HPI Per Admitting Provider The patient is a 46-year-old female with a past medical history including small bowel obstructions, history of gastric bypass surgery, morbid obesity, anemia, LDDD, lumbar radiculopathy, hypothyroidism, ventral hernia, STEPHEN, depression with anxiety, history of ureteral stent placement, vitamin D deficiency, migraine without aura and iron deficiency anemia. The patient most recently was admitted to [facility] from 02/18-02/20/2022 for small bowel obstruction, and was transferred to [facility], where she was discharged charged from on 02/21/2022. Patient reports she had been feeling well until she developed acute recurrence of pain this morning. CT scan of abdomen and pelvis in the ED this evening shows moderate to high- grade small bowel obstruction. Principal Diagnosis Small bowel obstruction Discharge Exam Constitutional WD/WN, vitals as above Respiratory normal respiratory effort, lungs clear to auscultation Cardiovascular RRR, no murmur, no edema Gastrointestinal (Abdomen) Inspection/Auscultation: + hypoactive bowel sounds Percussion/Palpation: + abdomen tender (generalized) and abdomen soft; no guarding and abdomen not rigid Psychiatric A+Ox3, euthymic affect Discharge Data Allergies Allergy/AdvReac Type Severity Reaction Status Date / Time tamsulosin [From Flomax] Allergy Severe angioedema Verified 03/26/22 22:51 Consultations 03/26/22 22:28 ED Decision to Admit Stat 03/27/22 13:55 Burn CD for patient Routine Ordered Studies 03/26/22 19:22 CT abd pelvis IV con only Stat Hospital Course (1) SBO (small bowel obstruction): Amparo Arteaga is a 46 year old female admitted overnight at [facility] from March 26 - 2021 due to small bowel obstruction while waiting for a bed under the surgeons at [facility]. NG tube inserted. NPO. Half normal saline with KCl 20 meq @ 125ml/hr. Her abdominal pain stayed the same overnight but abdomen became more soft. A bed is now available and she is stable for transfer. (2) UTI (urinary tract infection): (3) History of gastric bypass: (4) Hypothyroidism: (5) Depression with anxiety: (6) Morbid obesity with BMI of 50.0-59.9, adult: (7) Sleep apnea: Total Time Total Time Spent Total Time Spent (In Minutes): 50 Discharge Plan Discharge Items Patient Disposition: Transfer Acute Care Hospital Reason For Visit: SBO Discharge Diagnosis: Small bowel obstruction Condition on Discharge: Fair Activity: Per Instructions section Non-emergency contact: Primary Care Provider Call non-emergency contact if: you have any medication questions and your symptoms worsen Follow-up/Referrals: Armando Holder DO [Primary Care Provider] - Diet: Other - See Diet Comment Diet Comment: NPO Addtl Attending Provider Instructions: Amparo Arteaga is a 46 year old female admitted overnight at [facility] from March 26 - 2021 due to small bowel obstruction while waiting for a bed under the surgeons at [facility]. NG tube inserted. NPO. Half normal saline with KCl 20 meq @ 1025ml/hr. Her abdominal pain stayed the same overnight but abdomen became more soft. A bed is now available and she is stable for transfer. Pending Studies at Discharge: No Stand-Alone Forms: [facility] Skilled Items Patient informed of condition?: Yes DNR: No Discharge Level of Care: Skilled Communicable Disease: No Discharge Prognosis: Stable Lines: None Urinary Catheter: No Medications and DC Order Prescriptions: Continued levonorgestrel-ethinyl estrad [[place] (28)] 0.15-0.03 mg tablet 1 tab PO QAM Qty: 84 11RF oxycodone 10 mg tablet 10 mg PO BID PRN (Reason: pain) Qty: 20 0RF pregabalin [Lyrica] 200 mg capsule 200 mg PO BID Qty: 60 2RF sumatriptan succinate 100 mg tablet See Rx Instructions .ROUTE .COMPLEX Qty: 27 0RF Dose Instruction: take 1 tablet by mouth AT ONSET OF HEADACHE may repeat in 2 hours IF headache PERSISTS maximum daily dose of 2 tablets ( 200 milligrams ) every 24 hours Rx Instructions: take 1 tablet by mouth AT ONSET OF HEADACHE may repeat in 2 hours IF headache PERSISTS maximum daily dose of 2 tablets ( 200 milligrams ) every 24 hours pantoprazole [Protonix] 40 mg tablet,delayed release (DR/EC) 40 mg PO DAILY Qty: 90 3RF cholecalciferol (vitamin D3) 1,250 mcg (50,000 unit) capsule 50,000 unit PO WEEKLY 56 Days Qty: 8 0RF Label Comments: TAKES ON SUNDAYS Rx Instructions: Take one capsule once a week for eight weeks...takes on sundays phytonadione (vitamin K1) 100 mcg tablet 100 mcg PO QAM diclofenac sodium [Voltaren Arthritis Pain] 1 % gel 2 g topical QID PRN (Reason: Pain) Rx Instructions: apply to single elbow, wrist or hand; for hand includes palm/fingers/back of hand vitamin E 400 unit Capsule 400 unit PO QAM vitamin A 10,000 unit Capsule 10,000 unit PO QAM venlafaxine [Effexor XR] 150 mg capsule,extended release 24hr 150 mg PO QAM levothyroxine [Synthroid] 25 mcg tablet 25 mcg PO QAM hydroxyzine HCl 25 mg tablet 25 mg PO HS PRN (Reason: Insomnia) mecobalamin (vitamin B12) 1,000 mcg tablet,disintegrating 1,000 mcg sublingual QAM Rx Instructions: place tablet under tongue and allow to dissolve for at least30 secs before swallowing ondansetron 4 mg tablet,disintegrating 4 mg translingual Q8 PRN (Reason: nausea or vomiting) Rx Instructions: dissolve 1 tablet ON TONGUE every 8 hours if needed for nausea OR vomiting Discharge Orders: Discharge Order (Routine); Ordered 03/27/22 Ordered By: Molina Aquino Admission Data Admit Date/Time: 03/26/22 23:20 Attending Provider: Molina Aquino Admit Provider: Mumtaz Patterson Primary Care Provider: Armando Holder Other Providers: Mumtaz Patterson Other Interventions: Discharge Summary Assessment (RN) Last Done: 03/27/22 18:09 Coding Level of Care Code D/C DAY MANAGEMENT >30 MINS Diagnoses SBO (small bowel obstruction) K56.609 UTI (urinary tract infection) N30.00 Hematuria presence: without hematuria Urinary tract infection type: acute cystitis History of gastric bypass Z98.84 Hypothyroidism E03.9 Depression with anxiety F41.8 Morbid obesity with BMI of 50.0-59.9, adult E66.01; Z68.43 Sleep apnea G47.30
== END 2022-03-27 20:25 | disposition short-term general hospital (02) | DRG 389 ==
LOC: ED 19:06 → 3N 23:20 → SUATTDRO 23:20 → 3N 03-27 00:24